=== PATIENT | male | born 1930 | race Caucasian/White ===

== ENCOUNTER 2018-01-21 09:46 | Outpatient (CLI) | payer MEDICARE, OTHER ==
--- NOTE | 2018-01-21 12:27 | MRI ---
BRAIN MRI WITH AND WITHOUT CONTRAST: Date: 01/21/18 HISTORY: Follow-up stroke last year. COMPARISON: February 2017. TECHNIQUE: Brain MRI is performed with and without intravenous Gadolinium administration. Multisequential, multi planar imaging is performed. FINDINGS: There is a right frontal, temporal, parietal and occipital subdural hematoma with hypointensity in th e axial gradient echo sequence suggesting blood products. This lesion is intrinsically T1 hypointense , T2 hyperintense, suggesting an acute bleed. Hematoma measures 2.2 cm. There is mass effect and sulc al effacement upon the right cerebrum. There is 5 mm of [id number] subfalcine herniation. No obstr ucting hydrocephalus. Cortical glover-white matter differentiation in right cerebrum is preserved. Ther e is malacic and gliotic change involving the left cerebrum compatible with previous area of insult. Chronic small vessel ischemic changes of white matter are noted. Stable hyperintensities in the brainstem structures. Central arterial flow-voids are maintained. Abse nt restricted diffusion. Calvarium has a normal T1 marrow signal intensity. Midline brain parenchymal structures are unremarkable. No pathologic enhancement of the brain parenchyma. There is mild enhancement involving the dura along the extra-axial hematoma involving the right hemis phere. IMPRESSION: 1. Acute right-sided subdural hematoma measuring 2.2 cm. There is mass effect upon the right cerebru m with 5 mm of acjkq-hy-koue subfalcine herniation. 2. Malacic gliotic change involving the left cerebrum due to remote insult. 3. Chronic small vessel ischemic changes of white matter. 4. Absent restricted diffusion. No acute infarct. Results of study discussed with Dr. Lourdes Mott on 01/21/18 at 1206 hours. CODE CR. POS: [facility]
== END 2018-01-21 09:47 | disposition home or self-care (01) ==
LOC: SCSMRI 09:46
PROVIDERS: ATTEND Student in an Organized Health Care Education/Training Program
DX: I63.9 Cerebral infarction, unspecified (principal); R93.0 Abnormal findings on diagnostic imaging of skull and head, not elsewhere classified; S06.5X9A Traumatic subdural hemorrhage with loss of consciousness of unspecified duration, initial encounter; G93.9 Disorder of brain, unspecified
CPT/HCPCS: 70553

== ENCOUNTER 2018-01-21 12:40 | Emergency (ER) | payer MEDICARE, OTHER | END 2018-01-21 13:55 | disposition home or self-care (01) | LOC: ERS 12:40 | DX: I62.03 Nontraumatic chronic subdural hemorrhage (principal); E11.9 Type 2 diabetes mellitus without complications; I10 Essential (primary) hypertension; I25.10 Atherosclerotic heart disease of native coronary artery without angina pectoris; I73.9 Peripheral vascular disease, unspecified; M19.90 Unspecified osteoarthritis, unspecified site; Z86.73 Personal history of transient ischemic attack (TIA), and cerebral infarction without residual deficits; Z86.718 Personal history of other venous thrombosis and embolism; Z87.891 Personal history of nicotine dependence; R93.0 Abnormal findings on diagnostic imaging of skull and head, not elsewhere classified; S06.5X9A Traumatic subdural hemorrhage with loss of consciousness of unspecified duration, initial encounter; G93.9 Disorder of brain, unspecified | CPT/HCPCS: 70553; 82565; 99283 ==

== ENCOUNTER 2018-02-10 16:45 | Emergency (ER) | payer MEDICARE, OTHER ==
--- NOTE | 2018-02-10 18:37 | CT ---
CT OF THE BRAIN WITHOUT CONTRAST: Date: 02/10/18 COMPARISON: MRI of brain dated 01/21/18. HISTORY: Fall at 4:30 from standing onto a tile floor in the bathroom. Patient hit occipital head. TECHNIQUE: Multiple contiguous axial images were obtained in a CT of the brain without contrast. FINDINGS: There is a right subdural hematoma measuring 1.9 cm in greatest thickness. This has both low density and high density components and likely represents a chronic subdural hematoma with an acute component . Slight shift of the midline to the left is seen and not significantly changed compared to the prior MRI. There is encephalomalacia in the left frontoparietal region. No intraventricular hemorrhage is seen. No downward herniation is present. The calvarium and overlying soft tissues are unremarkable. There are skin tye in the left scalp n ear the vertex. The underlying calvarium is unremarkable. The visualized paranasal sinuses and mastoi d air cells are well aerated. 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 POS: [facility]
--- NOTE | 2018-03-05 15:05 | EKG ---
Test Reason : Blood Pressure : / mmHG Vent. Rate : 081 BPM Atrial Rate : 081 BPM P-R Int : 258 ms QRS Dur : 084 ms QT Int : 402 ms P-R-T Axes : 104 -14 082 degrees QTc Int : 466 ms Sinus rhythm with 1st degree A-V block with occasional Premature ventricular complexes Septal infarct , age undetermined Abnormal ECG Confirmed by HAMILTON GREEN ([id number]), design editor MADAI WARREN ([id number]) on 03/05/2018 3:05:09 PM Referred By: Confirmed By:HAMILTON GREEN
== END 2018-02-10 19:26 | disposition home or self-care (01) ==
LOC: ERS 16:45
DX: S01.01XA Laceration without foreign body of scalp, initial encounter (principal); E11.9 Type 2 diabetes mellitus without complications; I10 Essential (primary) hypertension; Z87.891 Personal history of nicotine dependence; Z79.899 Other long term (current) drug therapy; Z79.84 Long term (current) use of oral hypoglycemic drugs; W18.30XA Fall on same level, unspecified, initial encounter
CPT/HCPCS: 12001; 70450; 93005

== ENCOUNTER 2018-02-12 16:03 | Inpatient (IN) | payer MEDICARE, OTHER ==
[2018-02-12 17:39] LABS: #Eosinphils 0.1 thou/uL (0.0-0.7); #Lymphocytes 1.4 thou/uL (1.20-3.40); #Monocytes 0.4 thou/uL (0.11-0.59); #Neutrophils 3.1 thou/uL (1.40-6.50); %Basophils 0.8 % (0.0-1.0); %Eosinophils 1.6 % (0.0-10.0); %Lymphocytes 27.2 % (21.0-51.0); %Monocytes 8.8 % (0.0-10.0); %Neutrophils 61.6 % (42.0-75.0); Hemoglobin 11.8 g/dL (14.0-18.0); Mean Corpuscular HGB CONC 32.1 g/dL (32.0-36.0); Mean Corpuscular Hemoglobin 28.2 pg (27.0-31.0); Mean Corpuscular Volume 87.8 fl (80.0-94.0); Mean Platelet Volume 6.9 fL (7.4-10.4); Platelet Count 228 thou/uL (130-400); RBC Distribution Width 12.5 % (11.5-14.5)
--- NOTE | 2018-02-12 17:41 | RAD ---
PORTABLE UPRIGHT FRONTAL CHEST RADIOGRAPH 02/12/18 COMPARISON: 03/19/17 HISTORY: Altered mental status. FINDINGS: There are increased linear interstitial densities seen throughout both lungs, stable. There is promin ence of the cardiac silhouette, stable as well. There is no pneumothorax or pleural fluid and no foca l consolidation or alveolar edema. IMPRESSION: Stable chronic findings as described above. No acute findings are seen. POS: [facility]
[2018-02-12 17:50] LABS: PTT 32.7 SEC (22.9-36.1); Prothrombin Time 13.2 SEC (12.0-14.7)
--- NOTE | 2018-02-12 17:52 | CT ---
CT OF THE BRAIN WITHOUT CONTRAST 02/12/18 COMPARISON: 02/10/18 HISTORY: Recent fall with subdural hematoma. TECHNIQUE: Multiple contiguous axial images were obtained in a CT of the brain without contrast. FINDINGS: There is a stable mixed acute on chronic subdural hematoma along the right frontal and parietal conve xities. There is effacement of the right lateral ventricle and stable slight shift in the midline to the left. No downward herniation is seen. No interventricular hemorrhage is present. There is encepha lomalacia in the left MCA distribution from prior remote infarction. The calvarium is unremarkable. There is tye in the left scalp near the vertex. The paranasal sinu ses and mastoid air cells are well aerated. IMPRESSION: Stable acute on chronic right subdural hematoma. POS: [facility]
--- NOTE | 2018-02-12 17:55 | CT ---
CT OF THE CERVICAL SPINE WITHOUT CONTRAST 02/12/18 COMPARISON: None. HISTORY: Subdural hematoma shown on CT. Recent fall to days ago. Patient hit his head. Neck pain. TECHNIQUE: Multiple contiguous axial images were obtained in a CT of the cervical spine without contrast. Sagitt al and coronal reformats were performed. FINDINGS: There are moderate to severe degenerative changes of the cervical spine. The vertebral bodies demonst rate normal height and alignment without acute fracture or subluxation. No prevertebral soft tissue s welling is seen. The posterior facets are well aligned. Normal alignment of the skull base with the cervical spine is seen. IMPRESSION: No evidence of acute osseous abnormality of the cervical spine. POS: [facility]
[2018-02-12 18:01] LABS: ALT (SGPT) 14 U/L (8-55); AST (SGOT) 15 U/L (5-34); Albumin 3.9 g/dL (3.4-4.8); Alkaline Phosphatase 77 U/L (40-150); Anion Gap 12 mmol/L (10-20); BUN (Urea Nitrogen) 33 mg/dL (8.4-25.7); Bilirubin, Total 0.5 mg/dL (0.2-1.2); Calc. Creatinine Clearance 0 mL/min (70-130); Calcium 9.6 mg/dL (7.8-10.44); Carbon Dioxide 25 mmol/L (23-31); Chloride 107 mmol/L (98-107); Estimated GFR-MDRD 40; Globulin 2.9 g/dL (2.4-3.5); Glucose 147 mg/dL (83-110); Magnesium 2.4 mg/dL (1.6-2.6); Potassium 4.4 mmol/L (3.5-5.1); Protein, Total 6.8 g/dL (5.8-8.1); Sodium 140 mmol/L (136-145)
[2018-02-12 18:04] LABS: Troponin I Less than 0.010 ng/mL (< 0.028)
[2018-02-12] MEDS ORDERED: niCARdipine 20MG in NaCl 200 ML BAG IVPB PRN (22:57)
[2018-02-12] MEDS ORDERED: Acetaminophen 325 MG TAB PO PRN (22:57)
[2018-02-12] MEDS ORDERED: Milk Of Magnesia 30 ML UDCUP PO PRN (22:57)
[2018-02-12] MEDS ORDERED: Mag-Al 1200 mg/1200 mg/30 ML UDCUP PO PRN (22:57)
[2018-02-12] MEDS ORDERED: Bisacodyl 10 MG SUPP PR PRN (22:57)
[2018-02-12] MEDS ORDERED: Docusate 100 MG CAP PO PRN (22:57)
[2018-02-12] MEDS: Sodium Chloride 0.9% 1,000 ML IV SCH (23:40)
[2018-02-12] MEDS: niCARdipine HCl 25 MG in Sodium Chloride 0.9% 250 ML 240 ML IVPB PRN (23:41)
[2018-02-13 05:55] LABS: #Eosinphils 0.1 thou/uL (0.0-0.7); #Lymphocytes 1.6 thou/uL (1.20-3.40); #Monocytes 0.4 thou/uL (0.11-0.59); #Neutrophils 3.6 thou/uL (1.40-6.50); %Basophils 0.5 % (0.0-1.0); %Eosinophils 2.2 % (0.0-10.0); %Lymphocytes 28.1 % (21.0-51.0); %Monocytes 7.3 % (0.0-10.0); %Neutrophils 61.8 % (42.0-75.0); Hemoglobin 13.7 g/dL (14.0-18.0); Mean Corpuscular HGB CONC 32.5 g/dL (32.0-36.0); Mean Corpuscular Hemoglobin 28.5 pg (27.0-31.0); Mean Corpuscular Volume 87.8 fl (80.0-94.0); Mean Platelet Volume 7.7 fL (7.4-10.4); Platelet Count 233 thou/uL (130-400); RBC Distribution Width 12.6 % (11.5-14.5); White Blood Cell (WBC) Count 5.8 thou/uL (4.8-10.8)
[2018-02-13 06:13] LABS: Anion Gap 13 mmol/L (10-20); BUN (Urea Nitrogen) 28 mg/dL (8.4-25.7); Calc. Creatinine Clearance 41 mL/min (70-130); Calcium 9.7 mg/dL (7.8-10.44); Carbon Dioxide 21 mmol/L (23-31); Chloride 107 mmol/L (98-107); Estimated GFR-MDRD 48; Glucose 155 mg/dL (83-110); Potassium 4.4 mmol/L (3.5-5.1); Sodium 137 mmol/L (136-145)
[2018-02-13] MEDS: niCARdipine HCl 25 MG in Sodium Chloride 0.9% 250 ML 240 ML IVPB PRN ×3 (06:36→17:39)
[2018-02-13] MEDS ORDERED: HYDROcodone/Acetaminophen 5/325 mg Tablet PO PRN (08:01)
[2018-02-13] MEDS ORDERED: Artificial Tear Sol 15 ML BOT EA EYE PRN (08:01)
[2018-02-13] MEDS ORDERED: Dextrose 5% in Water 1,000 ML IV PRN (08:01)
[2018-02-13] MEDS ORDERED: Diabetic Tussin 200 MG/10 ML UDCUP PO PRN (08:01)
[2018-02-13] MEDS ORDERED: Loratadine 10 MG TAB PO PRN (08:01)
[2018-02-13] MEDS ORDERED: Eucerin (Mineral Oil/Petrolatum,White) 30 gm Jar TOP PRN (08:01)
[2018-02-13] MEDS ORDERED: Dextrose 50% Abboject 50 ML SYRINGE SLOW IVP PRN (08:01)
[2018-02-13] MEDS ORDERED: Ondansetron ODT 4 MG TAB PO PRN (08:01)
[2018-02-13] MEDS ORDERED: Sodium Chloride 0.65% Nasal 44 ML BOT EA NARE PRN (08:01)
[2018-02-13] MEDS ORDERED: Chloraseptic Spray 180 ml Bottle PO PRN (08:01)
[2018-02-13] MEDS ORDERED: HumaLOG 300 UNITS/3 ML VIAL SC PRN (08:01)
[2018-02-13] MEDS ORDERED: Zolpidem Tartrate 5 MG TAB PO PRN (08:01)
[2018-02-13] MEDS ORDERED: Ondansetron HCl/PF 4 MG/2 ML Vial IVP PRN ×2 (08:01→15:41)
--- NOTE | 2018-02-13 08:24 | HP ---
Chris Palmer PA-C, dictating for Tip Pruitt MD This is a 55-minute neuro, initial patient consult in which greater than 50% of the exam was spent co unseling and coordinating patient's care. The remainder of the exam was spent in review of patient's medical records and appropriate imaging studies. CHIEF COMPLAINT: Increased agitation, confusion, and balance issues for the past 2-3 days after sust aining a fall. HISTORY OF PRESENT ILLNESS: Mr. Alexander is a pleasant 87-year-old male who presents to [facility] Room with his for the above complaints. Apparently, the patient had known subdural hemato ma on the right as of 01/2018 evaluated by Neurology. The patient also has a history of left MCA dis tribution stroke several years ago. There is a component of baseline dementia. The patient lives at home with his . He was on 81 mg aspirin, but given the fact that he had a subdural in early Jan, was told to cease taking this and he has stopped taking this. Given some aches and pains, the karlos marycruztomasa's has given him some Advil, but again, he has not been on any blood thinners as early in . He fell at home, roughly 2-3 days ago as he tripped over his walker. He was evaluated in the emergency room, diagnosed with acute on chronic subdural hematoma. He was to follow up with Samson alvarado in 2-3 days, but again the patient's cancel the appointment. Given the fact that he fell, she will take him to the ER today. The patient's notes that he has had some increased agitation and combativeness as well as some balance issues and repetitive speech over the past 2-3 days after a fall. Review of the patient's head CT shows right acute on chronic subdural hematoma that is rough ly 2 cm in diameter with small amount of midline shift. Neurosurgery thus consulted regarding this. PHYSICAL EXAMINATION: The patient is awake, alert, and appropriate for the most part. He is repetit abiel in his speaking and is intermittently confused. GCS currently is 14. He is oriented to person a nd knows that he is in the hospital, but states that it is 1960, it is Saturday. He is unable to ident wayne what a writing pen is used for and cannot define an island, the definition of an Island. He does equally follow commands in all 4 extremities. He has no pronator drift at this time. His pupils ar e roughly 2-3 mm in size and reactive bilaterally. IMPRESSION: Status post fall 2-3 days ago with acute on chronic right subdural hematoma. PLAN: I discussed the patient's case and imaging with Dr. Pruitt. At this time, we will plan to rubi e the patient to surgery tomorrow afternoon for right frontal and parietal bur hole placement for elfego cuation of subdural hematoma. We will admit him to the unit for q.1 hour neuro checks. We will repe at his head CT in the morning. I discussed the procedure bur hole versus conversion to craniotomy wi th the patient and his and at this time they wish to proceed. Again, we will prefer the OR for tomorrow as the patient is for the most part neurologically intact and is well protecting his airway. We will proceed urgently rather than emergently. Of course, should the patient's neurologic status change, we will reevaluate then for sooner surgery; however, otherwise again we will plan with bur h ole placement tomorrow. At this time, the patient may eat, but he will be n.p.o. at midnight. Systo lic blood pressure remained less than 150, head of bed elevated at 30 degrees. We have also consulte d Medicine to help manage the patient's medical conditions. Please call with any questions or change s in patient's neurologic status. Otherwise, we will follow up with repeat head CT. Discussed bur h oles procedure with patient's family tomorrow.
[2018-02-13] MEDS: Famotidine/PF 20 mg/2ml Vial SLOW IVP SCH (08:32)
--- NOTE | 2018-02-13 08:44 | CT ---
PRELIMINARY REPORT/[facility]/EMERGENCY AFTER HOURS PROCEDURE: EXAM: CT Head Without Intravenous Contrast CLINICAL HISTORY: 87 years old, male; Injury or trauma; Fall; Follow-up exam; Blunt trauma (contusions or hematomas); Consciousness not specified; Patient HX: Acute on chronic sdh TECHNIQUE: Axial computed tomography images of the head/brain without intravenous contrast. COMPARISON: CT Brain WO Con 2018-02-10 18:12 FINDINGS: Brain: Stable large, mixed attenuation right frontoparietal subdural hematoma with persistent effacem ent of the right lateral ventricle and 6 mm right to left midline shift. No axial herniation. No hydr ocephalus. No acute stroke. Stable remote left MCA distribution parietal infarct. Stable lacunar infa rcts, right basal ganglion and thalamic lobe. Ventricles: See above. Bones/joints: No acute findings. No acute fracture. Soft tissues: No acute findings. Sinuses: Unremarkable as visualized. No acute sinusitis. Mastoid air cells: Unremarkable as visualized. No mastoid effusion. IMPRESSION: No significant change in large acute on chronic right subdural hematoma. No significant change in degree of mass effect or midline shift. No acute stroke. Thank you for allowing us to participate in the care of your patient. Dictated and Authenticated by: Vini Veloz MD 02/13/2018 4:43 AM Central Time ([place] & [place]) FINAL REPORT HEAD CT WITHOUT CONTRAST: Date: 02/13/18 COMPARISON: 02/12/18. HISTORY: Re-evaluate acute on chronic subdural hematoma. FINDINGS: A large acute on chronic subdural hematoma is noted on the right extending from inferior aspect of an terior cranial fossa to vertex. In transverse dimension, this subdural hematoma measures up to at [address] 2.0 cm, similar when compared to prior imaging. There is stable marked mass effect on the frontal lobe on the right, and there is right to left midline shift measuring approximately 6-7 mm, similar w hen compared to prior imaging as well. There is evidence of prior left posterior frontal infarction. Punctate focus of hypodense and lidia suggests age-indeterminate lacunar infarction, stable as well. I beatriz paranasal sinuses/mastoid air cells are well aerated. No displaced calvarial fracture. Cutaneou s tye are seen associated with the left lateral aspect of the scalp near the vertex. IMPRESSION: Stable large acute on chronic left subdural hematoma with associated mass effect on the right frontal lobe and stable right to left midline shift. This report is in agreement with the preliminary report given by Pa. POS: [facility]
--- NOTE | 2018-02-13 10:54 | PDOC.PN ---
- Subjective Encounter Start Date: 02/13/18 Encounter Start Time: 09:15 -: old records requested/rev pt is confused, denies any complaints, no headache - Objective Resuscitation Status: Resuscitation Status FULL:Full Resuscitation MAR Reviewed: Yes Vital Signs & Weight: Vital Signs (12 hours) Temp Pulse Resp Pulse Ox 02/13/18 07:12 97.7 F 82 27 H 97 02/13/18 07:00 97.7 F 02/13/18 04:00 98.3 F 02/13/18 00:00 98.2 F 02/12/18 23:59 98.2 F 77 15 97 Weight Weight 166 lb 10.711 oz Most Recent Monitor Data Heart Rate from ECG 80 NIBP 118/73 NIBP BP-Mean 81 Respiration from ECG 19 SpO2 96 I&O: 02/12/18 02/13/18 02/14/18 06:59 06:59 06:59 Intake Total 559 Output Total 700 200 Balance -141 -200 Result Diagrams: 02/13/18 04:27 02/13/18 04:27 Radiology Reviewed by me: Yes (CT brain) EKG Reviewed by me: Yes (NSR) Phys Exam - Physical Examination Constitutional: NAD HEENT: PERRLA, moist MMs, sclera anicteric Neck: no JVD, supple Respiratory: no wheezing, no rales, no rhonchi Cardiovascular: RRR, no significant murmur, no rub Gastrointestinal: soft, non-tender, no distention, positive bowel sounds Musculoskeletal: no edema, pulses present Neurological: non-focal, normal sensation, moves all 4 limbs Lymphatic: no nodes Psychiatric: normal affect Deviation from normal: confused Skin: no rash, normal turgor Dx/Plan (1) Fall Code(s): W19.XXXA - UNSPECIFIED FALL, INITIAL ENCOUNTER Status: Acute (2) Subdural hematoma Code(s): I62.00 - NONTRAUMATIC SUBDURAL HEMORRHAGE, UNSPECIFIED Status: Acute (3) Diabetes type 2, controlled Code(s): E11.9 - TYPE 2 DIABETES MELLITUS WITHOUT COMPLICATIONS Status: Chronic (4) CAD (coronary artery disease) Code(s): I25.10 - ATHSCL HEART DISEASE OF [place] CORONARY ARTERY W/O ANG PCTRS Status: Chronic Qualifiers: (5) Chronic kidney disease, stage 3 Status: Chronic (6) H/O: CVA (cerebrovascular accident) Code(s): Z86.73 - PRSNL HX OF TIA (TIA), AND CEREB INFRC W/O RESID DEFICITS Status: Chronic (7) Hypertension Code(s): I10 - ESSENTIAL (PRIMARY) HYPERTENSION Status: Chronic Qualifiers: (8) Peripheral vascular occlusive disease Code(s): I73.9 - PERIPHERAL VASCULAR DISEASE, UNSPECIFIED Status: Chronic - Plan cont current plan of care * code status-Full code * start hyperglycemia protocol treatment * DVT prophylaxis with SCD * GI prophylasix with pepcid * home medication reconciled * medication reviewed as below * symptomatic treatment * plan for bur hole drainage later today. Review of Systems - Review of Systems Other: not reliable due to his cognitive status - Medications/Allergies Allergies/Adverse Reactions: Allergies Allergy/AdvReac Type Severity Reaction Status Date / Time No Known Allergies Allergy Verified 02/27/17 00:50 Medications: Current Medications Acetaminophen (Tylenol) 650 mg PO Q6H PRN PRN Reason: Fever > 101 or Headache Hydrocodone Bitart/Acetaminophen ([place] 5/325) 1 tab PO Q4H PRN PRN Reason: Moderate Pain (4-6) Al Hydroxide/Mg Hydroxide (Maalox) 30 ml PO QIDPRN PRN PRN Reason: Dyspepsia Artificial Tears (Tears Renewed 15ml Bottle) 0 drop EA EYE PRN PRN PRN Reason: Dry Eyes Bisacodyl (Dulcolax) 10 mg NV DAILYPRN PRN PRN Reason: Constipation Dextrose/Water (Dextrose 50%) 25 gm SLOW IVP PRN PRN PRN Reason: Hypoglycemia Docusate Sodium (Colace) 100 mg PO BIDPRN PRN PRN Reason: Constipation Famotidine (Pepcid) 20 mg SLOW IVP 0900 [facility] Last Admin: 02/13/18 08:32 Dose: 20 mg Glucagon (Glucagon) 1 mg IM PRN PRN PRN Reason: Hypoglycemia Guaifenesin (Robitussin Sf) 200 mg PO Q4H PRN PRN Reason: Cough Hydralazine HCl (Apresoline) 10 mg SLOW IVP Q4H PRN PRN Reason: Systolic BP > 180 Sodium Chloride (Normal Saline 0.9%) 1,000 mls @ 75 mls/hr IV .[id number] [facility] Last Admin: 02/12/18 23:40 Dose: 1,000 mls Nicardipine HCl 25 mg/ Sodium (Chloride) 250 mls @ 0 mls/hr IVPB INF PRN; Protocol; Titrate PRN Reason: For SBP > 150 or DBP > 90 Last Admin: 02/13/18 09:54 Dose: 250 mls Dextrose/Water (D5w) 1,000 mls @ 0 mls/hr IV .Q0M PRN; As Directed PRN Reason: Hypoglycemia Insulin Human Lispro (Humalog) 0 units SC .MODERATE SLIDING SC PRN PRN Reason: Moderate Correctional Scale Insulin Human Lispro (Humalog) 0 units SC .BEDTIME SLIDING SC PRN PRN Reason: Bedtime Correctional Scale Loratadine (Claritin) 10 mg PO DAILYPRN PRN PRN Reason: Sinus Symptoms Magnesium Hydroxide (Milk Of Magnesium) 30 ml PO BIDPRN PRN PRN Reason: Constipation Mineral Oil/White Petrolatum (Eucerin Cream) 0 gm TOP BIDPRN PRN PRN Reason: Dry Skin Ondansetron HCl (Zofran Odt) 4 mg PO Q6H PRN PRN Reason: Nausea/Vomiting Ondansetron HCl (Zofran) 4 mg IVP Q6H PRN PRN Reason: Nausea/Vomiting Phenol (Chloraseptic [place] 180 Ml Bot) 0 ml PO PRN PRN PRN Reason: Sore Throat Sodium Chloride (Flush - Normal Saline) 10 ml IVF PRN PRN PRN Reason: Saline Flush Sodium Chloride ([place] Nasal [place] 0.65%) 0 ml EA NARE QIDPRN PRN PRN Reason: Nasal Congestion Zolpidem Tartrate (Ambien) 5 mg PO HSPRN PRN PRN Reason: Insomnia History of Present Illnes - History of Present Illness Reason for Visit: admitted for SDH after fall History of Present Illness: pt had fall 2 days ago, brought for AMS, found with SDH, admitted under neurosurgeon we are consulted for medical management pt is confused - Past Medical History Cardiac: CAD, HTN, Hyperlipidemia 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
[2018-02-13] MEDS: Sodium Chloride 0.9% 1,000 ML IV SCH (12:15)
[2018-02-13] MEDS ORDERED: Sodium Chloride 0.9% 10 ML ONE (12:32)
[2018-02-13] MEDS ORDERED: Lidocaine 0.5%/Epinephrine 1:200,000 50 ml Vial ONE (12:32)
[2018-02-13] MEDS ORDERED: Bacitracin Zinc Ointment 30 gm TUBE ONE (12:32)
[2018-02-13] MEDS ORDERED: Thrombin 5000 UNITS/5 ML VIAL ONE (12:32)
[2018-02-13] MEDS ORDERED: Fentanyl 100 MCG/2 ML VIAL ONE (13:10)
[2018-02-13] MEDS ORDERED: Lidocaine 2% Jelly 5 ML TUBE ONE (13:24)
[2018-02-13] MEDS ORDERED: Glycopyrrolate 0.2 MG/ML 5 ML SYRINGE ONE (13:37)
[2018-02-13] MEDS ORDERED: PHENYLEPHRINE-NS 100 MCG/ML 10 ML SYRINGE ONE (13:37)
[2018-02-13] MEDS ORDERED: PROPOFOL 200 MG/20 ML VIAL ONE (13:37)
[2018-02-13] MEDS ORDERED: Lidocaine 1% PF 5 ML VIAL ONE (13:37)
--- NOTE | 2018-02-13 15:20 | CON ---
DATE OF CONSULTATION: 02/13/2018 The following encompasses 70 minutes time. Of that time, greater than 50% was spent either with the patient or on the patient's unit. REASON FOR CONSULTATION: Management of hypertension. HISTORY OF PRESENT ILLNESS: This is an 87-year-old male who was admitted to the hospital yesterday a fter falling 2 days before admission, hitting his head in the bathroom. He has an acute on chronic r ight-sided subdural hematoma. Additionally, he has a history of a left-sided infarct in the past. H e is grossly confused and cannot give me anything in the way of accurate history. What I have is obt ained from reading the chart and talking with the nursing staff. PAST MEDICAL HISTORY: 1. Coronary artery disease. 2. Stroke. 3. Hypertension. 4. Osteoarthritis. 5. Previous subdural hematoma. 6. Deep venous thrombosis. PAST SURGICAL HISTORY: Appendectomy, thrombectomy left lower extremity. ALLERGIES: None. MEDICATIONS PRIOR TO ADMISSION: Metformin 1000 mg twice daily, captopril 25 mg twice daily, glipizid e 5 mg twice daily, amlodipine 5 mg daily, hydralazine 50 mg 3 times daily, simvastatin 40 mg daily. ASSESSMENT: 1. Subdural hematoma. 2. Encephalopathy. 3. Hypertension. PLAN: He may be going to the OR later today for bur holes. As soon as he is stabilized from an oral standpoint, we can restart his oral hypertensive medication. He will receive SCDs for DVT prophylax is and Pepcid for GI prophylaxis.
[2018-02-13] MEDS: CEFAZOLIN 1 GM, Syringe 2.5 ML in Sterile Water 7.5 ML SLOW IVP SCH (17:19)
[2018-02-13] MEDS: HumaLOG 300 UNITS/3 ML VIAL SC PRN (18:10)
--- NOTE | 2018-02-13 18:17 | PRG ---
DATE OF SERVICE: 02/13/2018 I have reviewed the notes of my colleague, Chris Palmer PA-C and agree with its content. Mr. Alexander is an 87-year-old man with a history of dementia, but he has been in and out of the [facility] for right-sided subdural hematoma. It is starting to cause increasing confusion and behavioral edwige nge. He has a history of left-sided stroke. CT demonstrates a right chronic subdural hematoma with moderate mass effect and midline shift. I have recommended surgery. The family would like to pursue . We will plan for cooper hole evacuation. I have discussed the informed consent in detail with the kwabena solo's and [id number]. DIAGNOSIS: Right chronic subdural hematoma with neurological decline.
[2018-02-13] MEDS ORDERED: Haloperidol Lactate 5 MG/ML VIAL SLOW IVP PRN (19:41)
[2018-02-13] MEDS ORDERED: CEFAZOLIN 1 GM in Sodium Chloride 0.9% 100 ML IVPB SCH (22:00)
[2018-02-13] MEDS: Haloperidol Lactate 5 MG/ML VIAL SLOW IVP PRN (22:43)
--- NOTE | 2018-02-13 22:58 | OP ---
OR: 12 WOUND TYPE: Type 1 wound. SURGEON: Tip Pruitt M.D. AUTOMOTIVE WORKER FOREMAN: Chris Palmer PA-C PREPROCEDURE DIAGNOSIS: Right chronic subdural hematoma, mass effect, midline shift, and neuro decli ne. POSTPROCEDURE DIAGNOSIS: Right chronic subdural hematoma, mass effect, midline shift, and neuro decl ine. PROCEDURE: Right-sided frontoparietal cooper hole, evacuation of subdural hematoma, and placement of s ubdural drain. DESCRIPTION OF PROCEDURE: After informed consent was obtained from the family, the patient brought t o OR 12. Proper patient pause and identification was carried out. He was placed under general anest hesia, the right frontal and parietal regions were identified, linear angel made. This was sterilely cleansed, prepared, and draped, proper patient pause and identification. Wounds were then opened an d bur holes placed. Dura opened, the subdural membrane was opened, and subdural hematoma came out un tanya moderate pressure. This was evacuated until we irrigated clear. A subdural drain was placed, se cured. The wound was closed in anatomic layers. The patient then emerged from anesthesia.
[2018-02-14] MEDS: CEFAZOLIN 1 GM, Syringe 2.5 ML in Sterile Water 7.5 ML SLOW IVP SCH ×3 (00:05→16:46)
[2018-02-14] MEDS: HumaLOG 300 UNITS/3 ML VIAL SC PRN ×2 (00:15→06:23)
[2018-02-14] MEDS: niCARdipine HCl 25 MG in Sodium Chloride 0.9% 250 ML 240 ML IVPB PRN ×2 (00:17→05:24)
[2018-02-14] MEDS: Sodium Chloride 0.9% 1,000 ML IV SCH (02:17)
--- NOTE | 2018-02-14 08:24 | CT ---
PRELIMINARY REPORT/[facility]/EMERGENCY AFTER HOURS PROCEDURE: EXAM: CT Head Without Intravenous Contrast CLINICAL HISTORY: 87 years old, male; Condition or disease; Other: Sdh; Prior surgery; Surgery date: Post-operative (0- 2 days); Patient HX: [place] hole drainage of sdh TECHNIQUE: Axial computed tomography images of the head/brain without intravenous contrast. COMPARISON: CT Brain WO Con 2018-02-13 03:39 FINDINGS: Interval surgery, with 2 right-sided cooper holes and a right subdural drain now present. Moderate amount of intracranial gas. Significant decrease in size of previously seen right subdural hematoma. Some subdural/blood is still present, maximum thickness 10-11 mm. There is mild right to left midline shift, improved in the interval. This measures about 4 mm, compar ed with 6-7 mm previously. No definite new hemorrhage in the interval. Ventricle size is not significantly changed. There is mild, relatively symmetrical decreased attenuation in the periventricular white matter, like ly from microvascular disease. There are small old lacunar infarcts in the right basal ganglia region and thalamus. Additional old infarct in the posterior left parietal region, unchanged. No definite acute infarct by CT. IMPRESSION: Postsurgical changes as above. Significant decrease in size of previously seen right subdural hematoma. Mild right to left midline shift, improved in the interval, details above. No definite new hemorrhage in the interval. Other findings discussed above. Thank you for allowing us to participate in the care of your patient. Dictated and Authenticated by: Mateo Rome MD 02/14/2018 5:55 AM Central Time ([place] & [place]) FINAL REPORT CT HEAD NONCONTRAST: Date: 02/14/18 FINDINGS/IMPRESSION: I agree with the above provided preliminary interpretation from [facility]. Interval decrease in volume of extra-axial hemorrhage, mixed density, overlying the right convexity. Pneumocephalus is present with an interval placed high right parietal approach. Extra-axial drain in place, terminating overlying the inferior right frontal lobe. POS: [facility]
[2018-02-14] MEDS: Famotidine/PF 20 mg/2ml Vial SLOW IVP SCH (09:19)
--- NOTE | 2018-02-14 10:23 | PRG ---
DATE OF SERVICE: 02/14/2018 SERVICE: Pulmonary Medicine. INTERVAL HISTORY: The patient is doing okay from a respiratory standpoint. Yesterday, he got a patrick le agitated. He ended up getting a dose of Haldol which actually seemed to help him quite a bit. He cannot provide much in the way of interval history. That being said, he indicates that he is not sh ort-winded. He has no specific complaints and otherwise, there were no nursing events reported. PHYSICAL EXAMINATION: VITAL SIGNS: Afebrile, pulse 82, blood pressure 129/56, respirations 14, saturation 96% on room air. GENERAL: The patient is awake. He is a little somnolent. HEENT: Normocephalic, atraumatic. Sclerae are white, conjunctivae pink. Oral and nasal mucosa dry. LUNGS: Decent air entry. Minimal rhonchi are present. There is not much of a prolonged expiratory phase. HEART: Normal rate, regular. ABDOMEN: Soft, nontender, nondistended. Bowel sounds are positive. MUSCULOSKELETAL: No cyanosis or clubbing. There is no pitting in the bilateral lower extremities. He has got skin tenting throughout. GENITOURINARY: Montiel catheter in place. NEUROLOGIC: Grossly nonfocal. LABORATORY DATA: WBC 5.8, hemoglobin 13.7, platelets 233,000. INR 1.0. Creatinine 1.40 and gently down trending, but blood sugars ranged from 166-200. Troponin was negative x1. IMAGING: CT of the brain demonstrates postsurgical changes and significant decreased inside of the r ight subdural hematoma, improved midline shift. ASSESSMENT: 1. Subdural hematoma. 2. Encephalopathy secondary to #1. 3. Status post craniotomy. DISCUSSION AND PLAN: The patient will remain in the ICU for the time being. Pulmonary or Critical C are will continue to follow. We will watch neuro checks fairly routinely. Hopefully, as his mentati on starts to improve, we will be able to increase mobility as tolerated. I will increase his IV flui ds as he is a touch on the dry side and we will repeat laboratories tomorrow morning.
[2018-02-14] MEDS: Sodium Chloride 0.45% 1,000 ML IV SCH ×2 (10:55→19:32)
--- NOTE | 2018-02-14 12:38 | PDOC.PN ---
- Subjective Encounter Start Date: 02/14/18 Encounter Start Time: 09:00 pt is sleepy this morning, no fever, burhole surgery was done yesterday Patient seen and examined. No overnight events - Objective Resuscitation Status: Resuscitation Status FULL:Full Resuscitation MAR Reviewed: Yes Vital Signs & Weight: Vital Signs (12 hours) Temp Pulse Pulse BP BP Pulse Ox Pulse Ox 02/14/18 09:18 85 85 123/64 136/45 L 96 96 02/14/18 08:00 98.4 F 02/14/18 04:00 98.4 F Weight Weight 167 lb 1.766 oz Most Recent Monitor Data Heart Rate from ECG 78 NIBP 135/42 NIBP BP-Mean 92 Respiration from ECG 14 SpO2 95 I&O: 02/13/18 02/14/18 02/15/18 06:59 06:59 06:59 Intake Total 559 2888 392 Output Total 700 2320 325 Balance -141 568 67 Result Diagrams: 02/13/18 04:27 02/13/18 04:27 Additional Labs: Accuchecks 02/14/18 02/14/18 02/13/18 06:24 00:15 17:56 POC Glucose 200 H 174 H 169 H Radiology Reviewed by me: Yes (CT brain) EKG Reviewed by me: Yes (nsr) Phys Exam - Physical Examination Constitutional: NAD HEENT: PERRLA, moist MMs, sclera anicteric Neck: no JVD, supple Respiratory: no wheezing, no rales, no rhonchi Cardiovascular: RRR, no significant murmur, no rub Gastrointestinal: soft, non-tender, no distention, positive bowel sounds Musculoskeletal: no edema, pulses present gutierrez+ Neurological: moves all 4 limbs Lymphatic: no nodes Psychiatric: normal affect Skin: no rash, normal turgor Dx/Plan (1) Fall Code(s): W19.XXXA - UNSPECIFIED FALL, INITIAL ENCOUNTER Status: Acute (2) Encephalopathy acute Code(s): G93.40 - ENCEPHALOPATHY, UNSPECIFIED Status: Acute (3) Subdural hematoma Code(s): I62.00 - NONTRAUMATIC SUBDURAL HEMORRHAGE, UNSPECIFIED Status: Acute Comment: acute on chronic, with midline shift, s/p burhole evaluation (4) Diabetes type 2, controlled Code(s): E11.9 - TYPE 2 DIABETES MELLITUS WITHOUT COMPLICATIONS Status: Chronic (5) CAD (coronary artery disease) Code(s): I25.10 - ATHSCL HEART DISEASE OF [place] CORONARY ARTERY W/O ANG PCTRS Status: Chronic Qualifiers: (6) Chronic kidney disease, stage 3 Status: Chronic (7) H/O: CVA (cerebrovascular accident) Code(s): Z86.73 - PRSNL HX OF TIA (TIA), AND CEREB INFRC W/O RESID DEFICITS Status: Chronic (8) Hypertension Code(s): I10 - ESSENTIAL (PRIMARY) HYPERTENSION Status: Chronic Qualifiers: (9) Peripheral vascular occlusive disease Code(s): I73.9 - PERIPHERAL VASCULAR DISEASE, UNSPECIFIED Status: Chronic - Plan cont current plan of care, gutierrez catheter, PT/OT, DVT proph w/SCDs * increase IVF * once more alert, start PT/OT * medication reviewed as below * symptomatic treatment * otherwise stable medically. Review of Systems - Review of Systems Other: unable to review today as pt is confused and currently sleepy - Medications/Allergies Allergies/Adverse Reactions: Allergies Allergy/AdvReac Type Severity Reaction Status Date / Time No Known Allergies Allergy Verified 02/27/17 00:50 Medications: Current Medications Acetaminophen (Tylenol) 650 mg PO Q6H PRN PRN Reason: Fever > 101 or Headache Hydrocodone Bitart/Acetaminophen ([place]ris 5/325) 1 tab PO Q4H PRN PRN Reason: Moderate Pain (4-6) Last Admin: 02/13/18 20:22 Dose: 1 tab Al Hydroxide/Mg Hydroxide (Maalox) 30 ml PO QIDPRN PRN PRN Reason: Dyspepsia Artificial Tears (Tears Renewed 15ml Bottle) 0 drop EA EYE PRN PRN PRN Reason: Dry Eyes Bisacodyl (Dulcolax) 10 mg MS DAILYPRN PRN PRN Reason: Constipation Dextrose/Water (Dextrose 50%) 25 gm SLOW IVP PRN PRN PRN Reason: Hypoglycemia Docusate Sodium (Colace) 100 mg PO BIDPRN PRN PRN Reason: Constipation Famotidine (Pepcid) 20 mg SLOW IVP 0900 HOLLIS Last Admin: 02/14/18 09:19 Dose: 20 mg Glucagon (Glucagon) 1 mg IM PRN PRN PRN Reason: Hypoglycemia Guaifenesin (Robitussin Sf) 200 mg PO Q4H PRN PRN Reason: Cough Haloperidol Lactate (Haldol) 5 mg SLOW IVP ONE PRN PRN Reason: .AGITATION Stop: 02/14/18 19:42 Last Admin: 02/13/18 21:32 Dose: 5 mg Haloperidol Lactate (Haldol) 2.5 mg SLOW IVP Q6H PRN PRN Reason: Agitation Last Admin: 02/13/18 22:43 Dose: 2.5 mg Hydralazine HCl (Apresoline) 10 mg SLOW IVP Q4H PRN PRN Reason: Systolic BP > 180 Nicardipine HCl 25 mg/ Sodium (Chloride) 250 mls @ 0 mls/hr IVPB INF PRN; Protocol; Titrate PRN Reason: For SBP > 150 or DBP > 90 Last Admin: 02/14/18 05:24 Dose: 250 mls Dextrose/Water (D5w) 1,000 mls @ 0 mls/hr IV .Q0M PRN; As Directed PRN Reason: Hypoglycemia Cefazolin Sodium 1 gm/ Syringe (2.5 ml/ Sterile Water) 10 mls @ 120 mls/hr SLOW IVP 0100,0900,1700 [facility] Last Admin: 02/14/18 09:19 Dose: 10 mls Sodium Chloride (1/2 Normal Saline) 1,000 mls @ 125 mls/hr IV .Q8H [facility] Last Admin: 02/14/18 10:55 Dose: 1,000 mls Insulin Human Lispro (Humalog) 0 units SC .MODERATE SLIDING SC PRN PRN Reason: Moderate Correctional Scale Last Admin: 02/14/18 06:23 Dose: 2 units Insulin Human Lispro (Humalog) 0 units SC .BEDTIME SLIDING SC PRN PRN Reason: Bedtime Correctional Scale Loratadine (Claritin) 10 mg PO DAILYPRN PRN PRN Reason: Sinus Symptoms Magnesium Hydroxide (Milk Of Magnesium) 30 ml PO BIDPRN PRN PRN Reason: Constipation Mineral Oil/White Petrolatum (Eucerin Cream) 0 gm TOP BIDPRN PRN PRN Reason: Dry Skin Ondansetron HCl (Zofran Odt) 4 mg PO Q6H PRN PRN Reason: Nausea/Vomiting Ondansetron HCl (Zofran) 4 mg IVP Q6H PRN PRN Reason: Nausea/Vomiting Last Admin: 02/13/18 18:26 Dose: 4 mg Phenol (Chloraseptic [place] 180 Ml Bot) 0 ml PO PRN PRN PRN Reason: Sore Throat Quetiapine Fumarate (Seroquel) 25 mg PO ONE PRN PRN Reason: .AGITATION Stop: 02/14/18 19:41 Last Admin: 02/13/18 19:47 Dose: 25 mg Sodium Chloride (Flush - Normal Saline) 10 ml IVF PRN PRN PRN Reason: Saline Flush Last Admin: 02/14/18 09:21 Dose: 10 ml Sodium Chloride ([place] Nasal [place] 0.65%) 0 ml EA NARE QIDPRN PRN PRN Reason: Nasal Congestion Zolpidem Tartrate (Ambien) 5 mg PO HSPRN PRN PRN Reason: Insomnia
--- NOTE | 2018-02-14 16:04 | PRG ---
DATE OF SERVICE: 02/14/2018 Mr. 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 He has improved neurologically and is more lucid and oriented. Before surgery, he was significantly disoriented with periods of lucidity with Haldol. This has improved in the postoperative period. Hi s drain output is slightly yellow tinged consistent with xanthochromic hygroma and hematoma, it was c lear that he had a chronic subdural hematoma at the time of surgery. There has been some oozing arou nd the drain exit site not uncommon. We have kept him flat overnight. We will begin to raise the he ad of the bed over the course of the next couple hours. Should he tolerate this, we will begin activ ity as tolerated and consult podiatry. We will likely remove the drain tomorrow as his postoperative head CT is satisfactory. He will need obviously placement as he lives at home with his that I think will need obviously more assistance in the postoperative period. If he does well over the cour se of next 24 hours or so, we will likely remove the subdural drain tomorrow and plan for transfer to the floor with possibly leaving the drain in one more day dependent upon output. He is on Ancef.
[2018-02-14] MEDS: Acetaminophen 1,000 MG in Premix Bag 1 BAG IVPB PRN (16:26)
[2018-02-14] MEDS: hydrALAZINE 20 MG/ML VIAL SLOW IVP PRN (20:02)
[2018-02-14] MEDS: Haloperidol Lactate 5 MG/ML VIAL SLOW IVP PRN (20:58)
[2018-02-15] MEDS: CEFAZOLIN 1 GM, Syringe 2.5 ML in Sterile Water 7.5 ML SLOW IVP SCH ×3 (00:07→16:45)
[2018-02-15] MEDS: niCARdipine HCl 25 MG in Sodium Chloride 0.9% 250 ML 240 ML IVPB PRN ×2 (00:07→06:36)
[2018-02-15] MEDS: Acetaminophen 1,000 MG in Premix Bag 1 BAG IVPB PRN ×2 (01:09→08:22)
[2018-02-15] MEDS: Sodium Chloride 0.45% 1,000 ML IV SCH ×3 (02:32→19:34)
[2018-02-15] MEDS: hydrALAZINE 20 MG/ML VIAL SLOW IVP PRN ×3 (05:48→19:32)
[2018-02-15 05:50] LABS: Anion Gap 11 mmol/L (10-20); BUN (Urea Nitrogen) 17 mg/dL (8.4-25.7); Calc. Creatinine Clearance 47 mL/min (70-130); Calcium 8.8 mg/dL (7.8-10.44); Carbon Dioxide 21 mmol/L (23-31); Chloride 108 mmol/L (98-107); Estimated GFR-MDRD 56; Glucose 155 mg/dL (83-110); Magnesium 1.8 mg/dL (1.6-2.6); Phosphorus 2.2 mg/dL (2.3-4.7); Potassium 3.8 mmol/L (3.5-5.1); Sodium 136 mmol/L (136-145)
--- NOTE | 2018-02-15 08:19 | PRG ---
DATE OF SERVICE: 02/15/2018 Mr. Alexander is now postoperative day #2, having undergone a right bur hole placement for evacuation of a subdural hematoma. He has intermittently required Haldol for agitation. He does not have any pain complaints at this time. Drain output has been minimal. He has been requiring Cardene drip intermi ttently for systolic blood pressure greater than 150. He has not yet ambulated or gotten up to a edwige ir. He is oriented to person, but not to place and time which apparently is his baseline. He does f ollow commands in all 4 extremities. He is minimally verbal and is not always appropriate. At this time what is keeping him in the unit is his Cardene drip. I have also left his drain as long as he w ill be in the unit, but I am okay with mobilizing as tolerated. We can continue with good blood pres sure control, it would be okay with removing his drain today and getting him to the floor if he is me dically stable. We will continue to follow the patient. Please call with any questions or changes i n the patient's neurologic status.
--- NOTE | 2018-02-15 08:57 | PRG ---
DATE OF SERVICE: 02/15/2018 SERVICE: Pulmonary Medicine. INTERVAL HISTORY: The patient is doing fine from a cardiovascular and respiratory standpoint. He is actually quite a bit more alert today. He denies any pain, shortness of breath, nausea, vomiting or diarrhea. He has not had any cough. He is not taking great nutrition. Otherwise, there has been n o interval change to his condition. PHYSICAL EXAMINATION: VITAL SIGNS: Afebrile, pulse 91, blood pressure 153/52, respirations 15, saturation 97% on room air. GENERAL: The patient is awake and alert, in no apparent distress. LUNGS: Decent air entry with no prolonged expiratory phase, wheezing, rhonchi or crackles. HEART: Normal rate, regular. ABDOMEN: Soft, nontender, and nondistended. Bowel sounds are positive. MUSCULOSKELETAL: No cyanosis or clubbing. There is no pitting in the bilateral lower extremities. LABORATORY DATA: Chloride 108, creatinine 1.22 and gently down trending. Basic metabolic profile is otherwise unremarkable. Phosphorus is 2.2, potassium 3.8, magnesium 1.8. ASSESSMENT: 1. Subdural hematoma. 2. Encephalopathy secondary to #1, improving dramatically. 3. Status post craniotomy. DISCUSSION, AND PLAN: Apparently, the drain is going to be removed today as it has not, put much out . His mentation has improved dramatically. We will work on mobilizing him today. Phosphorus and ma gnesium will be replaced. I will give a little bit of potassium as well. 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 Once he starts moving a touch more, we can transition to the floor. We will wean the Cardizem drip as tolerated.
[2018-02-15] MEDS ORDERED: glipiZIDE 5 MG TAB PO SCH (09:00)
[2018-02-15] MEDS ORDERED: Carvedilol 6.25 MG TAB PO SCH (09:00)
[2018-02-15] MEDS ORDERED: Magnesium 2 GM/NS 0.9% 100 ML 2 GM in Premix Bag 1 BAG IVPB SCH (09:15)
[2018-02-15] MEDS: glipiZIDE 5 MG TAB PO SCH ×2 (09:25→21:52)
[2018-02-15] MEDS ORDERED: Potassium Phosphate 30 MMOL in Sodium Chloride 0.9% 500 ML IVPB SCH (09:30)
[2018-02-15] MEDS: Carvedilol 6.25 MG TAB PO SCH (16:46)
--- NOTE | 2018-02-15 21:02 | PDOC.PN ---
- Subjective Encounter Start Date: 02/15/18 Encounter Start Time: 14:10 -: old records requested/rev Pt seen and examined, chart reviewed in its entirety, this is my first visit with this patient admitted for fall, SDH, to [facility] for evacuation, we are consulted for med management. karmen to be removed today, has been very inappropriate with female nurses and providers. No N/V/D/c, no F/C,no CP or sOB. 10 point ROS performed and neg for all systems except as per HPI - Objective Resuscitation Status: Resuscitation Status FULL:Full Resuscitation MAR Reviewed: Yes Vital Signs & Weight: Vital Signs (12 hours) Temp Pulse Pulse Pulse BP BP BP 02/15/18 19:32 74 165/66 H 02/15/18 16:46 149/59 H 02/15/18 16:00 98.4 F 02/15/18 15:02 145/54 H 02/15/18 14:35 75 76 153/66 H 147/72 H 02/15/18 12:00 98 F 02/15/18 09:33 145/54 H Pulse Ox Pulse Ox 02/15/18 19:32 02/15/18 16:46 02/15/18 16:00 02/15/18 15:02 02/15/18 14:35 100 100 02/15/18 12:00 02/15/18 09:33 Weight Admit Weight 169 lb Weight 169 lb 1.513 oz Most Recent Monitor Data Heart Rate from ECG 75 NIBP 147/47 NIBP BP-Mean 66 Respiration from ECG 15 SpO2 99 I&O: 02/14/18 02/15/18 02/16/18 06:59 06:59 06:59 Intake Total 2888 3192 1506 Output Total 2320 2115 733 Balance 568 1077 773 Result Diagrams: 02/16/18 03:51 02/16/18 03:51 Additional Labs: Accuchecks 02/15/18 02/15/18 02/15/18 16:31 12:04 00:14 POC Glucose 159 H 156 H 154 H Radiology Reviewed by me: Yes EKG Reviewed by me: Yes Phys Exam - Physical Examination Constitutional: NAD HEENT: PERRLA, moist MMs, sclera anicteric, oral pharynx no lesions Neck: no nodes, no JVD, supple, full ROM Respiratory: no wheezing, no rales, no rhonchi, clear to auscultation bilateral Cardiovascular: RRR, no significant murmur, no rub Gastrointestinal: soft, non-tender, no distention, positive bowel sounds Musculoskeletal: no edema, pulses present Neurological: non-focal, normal sensation, moves all 4 limbs Lymphatic: no nodes Psychiatric: normal affect, A&O x 3 Skin: no rash, normal turgor, cap refill <2 seconds Dx/Plan (1) Encephalopathy acute Code(s): G93.40 - ENCEPHALOPATHY, UNSPECIFIED Status: Acute (2) Fall Code(s): W19.XXXA - UNSPECIFIED FALL, INITIAL ENCOUNTER Status: Acute (3) Subdural hematoma Code(s): I62.00 - NONTRAUMATIC SUBDURAL HEMORRHAGE, UNSPECIFIED Status: Acute Comment: acute on chronic, with midline shift, s/p burhole evaluation (4) CAD (coronary artery disease) Code(s): I25.10 - ATHSCL HEART DISEASE OF [place] CORONARY ARTERY W/O ANG PCTRS Status: Chronic Qualifiers: Coronary Disease-Associated Artery/Lesion type: [place] artery [place] vs. transplanted heart: [place] heart Associated angina: without angina Qualified Code(s): I25.10 - Atherosclerotic heart disease of [place] coronary artery without angina pectoris (5) Chronic kidney disease, stage 3 Code(s): N18.3 - CHRONIC KIDNEY DISEASE, STAGE 3 (MODERATE) Status: Chronic (6) Diabetes type 2, controlled Code(s): E11.9 - TYPE 2 DIABETES MELLITUS WITHOUT COMPLICATIONS Status: Chronic Qualifiers: Diabetes mellitus nursing home insulin use: with nursing home use Diabetes mellitus complication status: with circulatory complication Diabetes mellitus complication detail: with peripheral angiopathy without gangrene Qualified Code(s): E11.51 - Type 2 diabetes mellitus with diabetic peripheral angiopathy without gangrene; Z79.4 - termite exterminator helper (current) use of insulin; Z79.4 - termite exterminator helper (current) use of insulin; Z79.4 - termite exterminator helper (current) use of insulin; Z79.4 - termite exterminator helper (current) use of insulin (7) H/O: CVA (cerebrovascular accident) Code(s): Z86.73 - PRSNL HX OF TIA (TIA), AND CEREB INFRC W/O RESID DEFICITS Status: Chronic (8) Hypertension Code(s): I10 - ESSENTIAL (PRIMARY) HYPERTENSION Status: Chronic Qualifiers: Hypertension type: essential hypertension (9) Peripheral vascular occlusive disease Code(s): I73.9 - PERIPHERAL VASCULAR DISEASE, UNSPECIFIED Status: Chronic - Plan cont current plan of care, plan discussed w/ family, PT/OT, incentive spirometry , out of bed/ambulate * .
[2018-02-16] MEDS: CEFAZOLIN 1 GM, Syringe 2.5 ML in Sterile Water 7.5 ML SLOW IVP SCH (01:15)
[2018-02-16] MEDS: hydrALAZINE 20 MG/ML VIAL SLOW IVP PRN ×3 (01:16→10:08)
[2018-02-16 04:27] LABS: #Basophils 0.1 thou/uL (0.0-0.2); #Eosinphils 0.3 thou/uL (0.0-0.7); #Lymphocytes 1.5 thou/uL (1.20-3.40); #Monocytes 0.8 thou/uL (0.11-0.59); #Neutrophils 5.3 thou/uL (1.40-6.50); %Basophils 0.8 % (0.0-1.0); %Eosinophils 3.2 % (0.0-10.0); %Lymphocytes 18.9 % (21.0-51.0); %Neutrophils 67.2 % (42.0-75.0); Hemoglobin 11.6 g/dL (14.0-18.0); Mean Corpuscular HGB CONC 34.5 g/dL (32.0-36.0); Mean Corpuscular Hemoglobin 29.5 pg (27.0-31.0); Mean Corpuscular Volume 85.5 fl (80.0-94.0); Mean Platelet Volume 7.1 fL (7.4-10.4); Platelet Count 198 thou/uL (130-400); RBC Distribution Width 12.9 % (11.5-14.5); Red Blood Cell (RBC) Count 3.94 mill/uL (4.70-6.10); White Blood Cell (WBC) Count 7.9 thou/uL (4.8-10.8)
[2018-02-16 04:43] LABS: Anion Gap 11 mmol/L (10-20); BUN (Urea Nitrogen) 17 mg/dL (8.4-25.7); Calc. Creatinine Clearance 50 mL/min (70-130); Calcium 8.3 mg/dL (7.8-10.44); Carbon Dioxide 20 mmol/L (23-31); Chloride 107 mmol/L (98-107); Estimated GFR-MDRD 60; Glucose 166 mg/dL (83-110); Magnesium 2.1 mg/dL (1.6-2.6); Potassium 3.7 mmol/L (3.5-5.1); Sodium 134 mmol/L (136-145)
[2018-02-16] MEDS: glipiZIDE 5 MG TAB PO SCH ×2 (08:18→19:45)
[2018-02-16] MEDS: Carvedilol 6.25 MG TAB PO SCH ×2 (08:18→17:42)
--- NOTE | 2018-02-16 08:21 | PRG ---
DATE OF SERVICE: 02/16/2018 SUBJECTIVE: Mr. Alexander is now postoperative day #3, having undergone right cooper hole placement for ev acuation of subdural hematoma. He is improving overall. He continues to be intermittently agitated. He is sitting up in a chair and attempts to answer questions correctly. Blood pressures remained a bit of an issue and he has been intermittently needed Cardene; however, his home medications have no t been restarted, so we can restart these and see how his blood pressure improves. Sodium is slightl y low at 134. He is able to follow commands in all 4 extremities. He is oriented to person, but is not oriented to place and time which is apparently baseline for him and he is stable for transfer to the floor at any time. Please call with any questions or changes in the patient's neurologic status. Chris Palmer PA-C dictating for Dr. Izaiah Gardner.
--- NOTE | 2018-02-16 10:23 | PRG ---
DATE OF SERVICE: 02/16/2018 SERVICE: Pulmonary Medicine. INTERVAL HISTORY: The patient is doing fine from a cardiovascular and respiratory standpoint. He de nies any chest pain, nausea, vomiting or shortness of breath. His mentation is much improved. He is eating fantastically. Otherwise, there has been no change to his condition. PHYSICAL EXAMINATION: VITAL SIGNS: Afebrile, pulse 63, blood pressure 141/58, respirations 12, saturation 100% on room air . GENERAL: The patient is awake, alert, no apparent distress. LUNGS: Decent air entry. There is no prolonged expiratory phase, wheezing, rhonchi or crackles. HEART: Normal rate, regular. ABDOMEN: Soft, nontender, and nondistended. Bowel sounds are positive. MUSCULOSKELETAL: No cyanosis or clubbing. There is no pitting in the bilateral lower extremities. NEUROLOGIC: Grossly nonfocal. LABORATORY DATA: WBC 7.9, hemoglobin 11.6, platelets 198,000, bicarbonate 20. Basic metabolic profi le is otherwise unremarkable. Magnesium is normal. Creatinine has trended downward to 1.16. ASSESSMENT: 1. Subdural hematoma. 2. Encephalopathy secondary to #1, resolved. 3. Status post craniotomy. 4. Acute kidney injury, resolved. PLAN: I will stop the IV fluids if his appetite is fantastic. We will increase some of his p.o. blo od pressure medications. Potassium to be replaced. Montiel catheter to be removed. Ultimately, I thi nk he can transition to the surgical unit as he does not require telemetry for subdural lesion. We w ill need to make certain we do neuro checks q.4 hours.
[2018-02-16] MEDS ORDERED: Amlodipine 5 MG TAB PO SCH (10:30)
[2018-02-16] MEDS: HumaLOG 300 UNITS/3 ML VIAL SC PRN (11:14)
--- NOTE | 2018-02-16 13:03 | PDOC.PN ---
- Subjective Encounter Start Date: 02/16/18 Encounter Start Time: 10:55 Pt just up withPT, made it 90 feet. minimal headache, no F/C, no N/V/d/c, holli po well. Pt has an advanced directive, will bring it upnext time, in the meantime, will keep him full code. MS stable, still not at baseline, but appears calm and unobstruive at present 10 point ROS performed and neg for all systems except as per HPI - Objective Resuscitation Status: Resuscitation Status FULL:Full Resuscitation MAR Reviewed: Yes Vital Signs & Weight: Vital Signs (12 hours) Temp Pulse Resp BP Pulse Ox 02/16/18 11:16 69 138/53 L 02/16/18 10:08 124/46 L 02/16/18 08:18 124/46 L 02/16/18 07:29 98.6 F 77 20 100 02/16/18 05:03 77 174/62 H 02/16/18 01:16 82 182/67 H Weight Admit Weight 169 lb Weight 167 lb 8.821 oz Most Recent Monitor Data Heart Rate from ECG 69 NIBP 138/53 NIBP BP-Mean 76 Respiration from ECG 22 SpO2 100 I&O: 02/15/18 02/16/18 02/17/18 06:59 06:59 06:59 Intake Total 3192 2656 710 Output Total 3085 2908 275 Balance 1077 -252 435 Result Diagrams: 02/16/18 03:51 02/16/18 03:51 Additional Labs: Accuchecks 02/16/18 02/15/18 02/15/18 11:10 21:48 16:31 POC Glucose 212 H 144 H 159 H Phys Exam - Physical Examination Constitutional: NAD HEENT: PERRLA, moist MMs, sclera anicteric, oral pharynx no lesions Neck: no nodes, no JVD, supple, full ROM Respiratory: no wheezing, no rales, no rhonchi, clear to auscultation bilateral Cardiovascular: RRR, no significant murmur, no rub Gastrointestinal: soft, non-tender, no distention, positive bowel sounds Musculoskeletal: no edema, pulses present Neurological: non-focal, normal sensation, moves all 4 limbs Lymphatic: no nodes Psychiatric: normal affect, A&O x 3 Skin: no rash, normal turgor, cap refill <2 seconds Dx/Plan (1) Encephalopathy acute Code(s): G93.40 - ENCEPHALOPATHY, UNSPECIFIED Status: Acute Comment: improving slowly. very impulsive, no social inhibition, memory a little worse than normal per (2) Fall Code(s): W19.XXXA - UNSPECIFIED FALL, INITIAL ENCOUNTER Status: Acute Qualifiers: Encounter type: initial encounter Qualified Code(s): W19.XXXA - Unspecified fall, initial encounter (3) Subdural hematoma Code(s): I62.00 - NONTRAUMATIC SUBDURAL HEMORRHAGE, UNSPECIFIED Status: Acute Comment: acute on chronic, with midline shift, s/p burhole evaluation (4) CAD (coronary artery disease) Code(s): I25.10 - ATHSCL HEART DISEASE OF [place] CORONARY ARTERY W/O ANG PCTRS Status: Chronic Qualifiers: Coronary Disease-Associated Artery/Lesion type: [place] artery [place] vs. transplanted heart: [place] heart Associated angina: without angina Qualified Code(s): I25.10 - Atherosclerotic heart disease of [place] coronary artery without angina pectoris (5) Chronic kidney disease, stage 3 Code(s): N18.3 - CHRONIC KIDNEY DISEASE, STAGE 3 (MODERATE) Status: Chronic (6) Diabetes type 2, controlled Code(s): E11.9 - TYPE 2 DIABETES MELLITUS WITHOUT COMPLICATIONS Status: Chronic Qualifiers: Diabetes mellitus superintendent container terminal insulin use: with detention use Diabetes mellitus complication status: with circulatory complication Diabetes mellitus complication detail: with peripheral angiopathy without gangrene Qualified Code(s): E11.51 - Type 2 diabetes mellitus with diabetic peripheral angiopathy without gangrene; Z79.4 - senior care (current) use of insulin; Z79.4 - senior care (current) use of insulin; Z79.4 - senior care (current) use of insulin; Z79.4 - senior care (current) use of insulin (7) H/O: CVA (cerebrovascular accident) Code(s): Z86.73 - PRSNL HX OF TIA (TIA), AND CEREB INFRC W/O RESID DEFICITS Status: Chronic (8) Hypertension Code(s): I10 - ESSENTIAL (PRIMARY) HYPERTENSION Status: Chronic Qualifiers: Hypertension type: essential hypertension (9) Peripheral vascular occlusive disease Code(s): I73.9 - PERIPHERAL VASCULAR DISEASE, UNSPECIFIED Status: Chronic - Plan * .
[2018-02-16] MEDS: hydrALAZINE 25 MG TAB PO SCH ×2 (14:38→19:45)
[2018-02-16] MEDS ORDERED: cloNIDine 0.1 MG TAB PO PRN (21:45)
[2018-02-17] MEDS ORDERED: Tamsulosin HCl 0.4 MG CAP PO SCH (07:30)
[2018-02-17] MEDS: glipiZIDE 5 MG TAB PO SCH ×2 (07:37→21:06)
[2018-02-17] MEDS: Carvedilol 6.25 MG TAB PO SCH ×2 (07:37→16:12)
[2018-02-17] MEDS: hydrALAZINE 25 MG TAB PO SCH ×3 (07:37→21:05)
[2018-02-17] MEDS: Amlodipine 5 MG TAB PO SCH (07:38)
--- NOTE | 2018-02-17 08:24 | PRG ---
DATE OF SERVICE: 02/17/2018 He is still very confused, but calm and seems to be doing well otherwise. PHYSICAL EXAMINATION: VITAL SIGNS: His temperature is 98.3, pulse 84, blood pressure 176/69, sat 95%. HEENT: Unremarkable. NECK: No JVD. CHEST: Clear without wheezing or rhonchi. CARDIAC: S1 and S2 regular. ABDOMEN: Soft. EXTREMITIES: No edema. LABORATORY DATA: No labs were obtained today. ASSESSMENT: 1. Chronic subdural hematoma with altered mental status. 2. Status post cooper holes. 3. Encephalopathy, which is improved. PLAN: This is mainly a rehab issue at this point. No further Pulmonary Critical Care recommendation s. We will sign off the case. Please recall if further assistance needed.
[2018-02-17] MEDS: HumaLOG 300 UNITS/3 ML VIAL SC PRN (12:17)
[2018-02-17 12:49] VITALS: BMI 25.9
--- NOTE | 2018-02-17 13:31 | PDOC.PN ---
- Subjective Encounter Start Date: 02/17/18 Encounter Start Time: 13:30 Subjective: Patient without complaints. Mildly confused. Just got back from -: work with physical therapy. - Objective Resuscitation Status: Resuscitation Status FULL:Full Resuscitation MAR Reviewed: Yes Vital Signs & Weight: Vital Signs (12 hours) Temp Pulse Resp BP BP Pulse Ox 02/17/18 12:23 101/58 L 02/17/18 08:45 98.4 F 74 20 94 L 02/17/18 07:38 74 179/69 H 02/17/18 07:37 74 179/69 H 02/17/18 07:21 98.4 F 74 20 179/69 H 94 L 02/17/18 04:39 98.3 F 62 16 150/68 H 95 Weight Admit Weight 169 lb Weight 181 lb Most Recent Monitor Data Heart Rate from ECG 69 NIBP 138/53 NIBP BP-Mean 76 Respiration from ECG 22 SpO2 100 I&O: 02/16/18 02/17/18 02/18/18 06:59 06:59 06:59 Intake Total 2656 890 110 Output Total 2908 1000 725 Balance -252 -110 -615 Result Diagrams: 02/16/18 03:51 02/16/18 03:51 Additional Labs: Accuchecks 02/17/18 02/17/18 02/16/18 11:50 06:45 21:59 POC Glucose 288 H 138 H 202 H 02/16/18 16:56 POC Glucose 127 H Phys Exam - Physical Examination Constitutional: NAD HEENT: moist MMs Respiratory: no wheezing, no rales, no rhonchi, clear to auscultation bilateral Cardiovascular: RRR, no significant murmur Gastrointestinal: soft, positive bowel sounds Neurological: non-focal Psychiatric: normal affect Deviation from normal: oriented to person only Deviation from normal: incisions on scalp closed with tye, no drains in place Dx/Plan (1) Subdural hematoma Code(s): I62.00 - NONTRAUMATIC SUBDURAL HEMORRHAGE, UNSPECIFIED Status: Acute Comment: acute on chronic, with midline shift, s/p burhole evaluation (2) Encephalopathy acute Code(s): G93.40 - ENCEPHALOPATHY, UNSPECIFIED Status: Acute Comment: improving slowly. very impulsive, no social inhibition, memory a little worse than normal per (3) Fall Code(s): W19.XXXA - UNSPECIFIED FALL, INITIAL ENCOUNTER Status: Acute Qualifiers: Encounter type: initial encounter Qualified Code(s): W19.XXXA - Unspecified fall, initial encounter (4) Dementia Code(s): F03.90 - UNSPECIFIED DEMENTIA WITHOUT BEHAVIORAL DISTURBANCE Status: Chronic (5) CAD (coronary artery disease) Code(s): I25.10 - ATHSCL HEART DISEASE OF [place] CORONARY ARTERY W/O ANG PCTRS Status: Chronic Qualifiers: Coronary Disease-Associated Artery/Lesion type: [place] artery [place] vs. transplanted heart: [place] heart Associated angina: without angina Qualified Code(s): I25.10 - Atherosclerotic heart disease of [place] coronary artery without angina pectoris (6) Chronic kidney disease, stage 3 Code(s): N18.3 - CHRONIC KIDNEY DISEASE, STAGE 3 (MODERATE) Status: Chronic (7) Diabetes type 2, controlled Code(s): E11.9 - TYPE 2 DIABETES MELLITUS WITHOUT COMPLICATIONS Status: Chronic Qualifiers: Diabetes mellitus termite control servicer insulin use: with termite control servicer use Diabetes mellitus complication status: with circulatory complication Diabetes mellitus complication detail: with peripheral angiopathy without gangrene Qualified Code(s): E11.51 - Type 2 diabetes mellitus with diabetic peripheral angiopathy without gangrene; Z79.4 - terminal gauger supervisor (current) use of insulin; Z79.4 - terminal gauger supervisor (current) use of insulin; Z79.4 - senior living (current) use of insulin; Z79.4 - senior living (current) use of insulin (8) H/O: CVA (cerebrovascular accident) Code(s): Z86.73 - PRSNL HX OF TIA (TIA), AND CEREB INFRC W/O RESID DEFICITS Status: Chronic (9) Hypertension Code(s): I10 - ESSENTIAL (PRIMARY) HYPERTENSION Status: Chronic Qualifiers: Hypertension type: essential hypertension Qualified Code(s): I10 - Essential (primary) hypertension (10) Peripheral vascular occlusive disease Code(s): I73.9 - PERIPHERAL VASCULAR DISEASE, UNSPECIFIED Status: Chronic - Plan cont current plan of care, PT/OT to rehab when accepted and cleared for d/c by neurosurg. * . - Discharge Day Encounter end time: 13:50
--- NOTE | 2018-02-17 16:34 | PRG ---
DATE OF SERVICE: 02/17/2018 Mr. Alexander is postoperative day 1 from right-sided bur hole evacuation. He is doing very well. He is improved in his lucidity, following commands, and tolerating orals. His wounds are healing well. D isposition is main issue.
[2018-02-18] MEDS: Amlodipine 5 MG TAB PO SCH (08:53)
[2018-02-18] MEDS: Carvedilol 6.25 MG TAB PO SCH (08:53)
[2018-02-18] MEDS: glipiZIDE 5 MG TAB PO SCH (08:53)
[2018-02-18] MEDS: hydrALAZINE 25 MG TAB PO SCH ×2 (08:53→15:19)
--- NOTE | 2018-02-18 09:59 | PDOC.PN ---
- Subjective Encounter Start Date: 02/18/18 Encounter Start Time: 14:30 Subjective: Patient doing well. No complaints. Pleasant. - Objective Resuscitation Status: Resuscitation Status FULL:Full Resuscitation MAR Reviewed: Yes Vital Signs & Weight: Vital Signs (12 hours) Temp Pulse Resp BP BP BP Pulse Ox 02/18/18 08:53 59 L 159/66 H 02/18/18 07:25 98.4 F 59 L 18 159/66 H 02/18/18 04:22 98.5 F 66 16 187/77 H 93 L 02/17/18 23:28 97.4 F L 66 16 156/53 H 93 L Weight Admit Weight 169 lb Weight 6.233 oz Most Recent Monitor Data Heart Rate from ECG 69 NIBP 138/53 NIBP BP-Mean 76 Respiration from ECG 22 SpO2 100 I&O: 02/17/18 02/18/18 02/19/18 06:59 06:59 06:59 Intake Total 890 1070 Output Total 1000 2935 Balance -110 -1865 Result Diagrams: 02/16/18 03:51 02/16/18 03:51 Additional Labs: Accuchecks 02/18/18 02/17/18 02/17/18 04:27 20:47 15:42 POC Glucose 141 H 133 H 118 H 02/17/18 11:50 POC Glucose 288 H Phys Exam - Physical Examination Constitutional: NAD HEENT: moist MMs Respiratory: no wheezing, no rales, no rhonchi, clear to auscultation bilateral Cardiovascular: RRR Gastrointestinal: soft, positive bowel sounds Neurological: non-focal, moves all 4 limbs Deviation from normal: pleasantly demented, oriented to person only Dx/Plan (1) Subdural hematoma Code(s): I62.00 - NONTRAUMATIC SUBDURAL HEMORRHAGE, UNSPECIFIED Status: Acute Comment: acute on chronic, with midline shift, s/p burhole evaluation (2) Encephalopathy acute Code(s): G93.40 - ENCEPHALOPATHY, UNSPECIFIED Status: Acute Comment: improving slowly. very impulsive, no social inhibition, memory a little worse than normal per (3) Fall Code(s): W19.XXXA - UNSPECIFIED FALL, INITIAL ENCOUNTER Status: Acute Qualifiers: Encounter type: initial encounter Qualified Code(s): W19.XXXA - Unspecified fall, initial encounter (4) Dementia Code(s): F03.90 - UNSPECIFIED DEMENTIA WITHOUT BEHAVIORAL DISTURBANCE Status: Chronic (5) CAD (coronary artery disease) Code(s): I25.10 - ATHSCL HEART DISEASE OF [place] CORONARY ARTERY W/O ANG PCTRS Status: Chronic Qualifiers: Coronary Disease-Associated Artery/Lesion type: [place] artery [place] vs. transplanted heart: [place] heart Associated angina: without angina Qualified Code(s): I25.10 - Atherosclerotic heart disease of [place] coronary artery without angina pectoris (6) Chronic kidney disease, stage 3 Code(s): N18.3 - CHRONIC KIDNEY DISEASE, STAGE 3 (MODERATE) Status: Chronic (7) Diabetes type 2, controlled Code(s): E11.9 - TYPE 2 DIABETES MELLITUS WITHOUT COMPLICATIONS Status: Chronic Qualifiers: Diabetes mellitus skilled nursing insulin use: with long term care pharmacist use Diabetes mellitus complication status: with circulatory complication Diabetes mellitus complication detail: with peripheral angiopathy without gangrene Qualified Code(s): E11.51 - Type 2 diabetes mellitus with diabetic peripheral angiopathy without gangrene; Z79.4 - intermodal customer service (current) use of insulin; Z79.4 - retirement (current) use of insulin; Z79.4 - retirement (current) use of insulin; Z79.4 - intermodal customer service (current) use of insulin (8) H/O: CVA (cerebrovascular accident) Code(s): Z86.73 - PRSNL HX OF TIA (TIA), AND CEREB INFRC W/O RESID DEFICITS Status: Chronic (9) Hypertension Code(s): I10 - ESSENTIAL (PRIMARY) HYPERTENSION Status: Chronic Qualifiers: Hypertension type: essential hypertension Qualified Code(s): I10 - Essential (primary) hypertension (10) Peripheral vascular occlusive disease Code(s): I73.9 - PERIPHERAL VASCULAR DISEASE, UNSPECIFIED Status: Chronic - Plan cont current plan of care, PT/OT, speech therapy Transfer to rehab once accepted * . - Discharge Day Encounter end time: 14:50
[2018-02-18] MEDS: HumaLOG 300 UNITS/3 ML VIAL SC PRN (11:48)
[2018-02-18 15:44] VITALS: BP 139/63
[2018-02-18 15:58] VITALS: TEMP 97.8
--- NOTE | 2018-02-18 16:23 | PRG ---
DATE OF SERVICE: 02/18/2018 This is Chris Palmer PA-C dictating for Tip Pruitt M.D. SUBJECTIVE: Mr. Alexander is now postoperative day #5, having undergone a cooper hole placement for evacua tion of subdural hematoma. Patient appears to be at his neurologic baseline. He is rather confused, but is much less agitated and combative now. His is at bedside and she has been updated as sarah lopez. He is able to follow commands in all 4 extremities. He is oriented to person and knows he is in [place], but states the year is 1952. Again, his incisions are clean, dry, and intact without any sign s of drainage. He is stable for discharge from neurosurgical standpoint. We have transferred his nj imary service to medicine as well. There may be a chance the patient is accepted to rehab as early a s today and again we are okay with him discharging at any time. Appropriate followup appointments busch ve been made for the patient and we suggest holding all anticoagulants until the patient has been juliana ared by Neurosurgery. Please call with any questions or changes in patient's neurologic status.
--- NOTE | 2018-02-19 03:25 | DIS ---
PRIMARY CARE PHYSICIAN: Devin Coombs M.D. INITIAL ADMITTING TEAM: Neurosurgery, Dr. Pruitt. 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 DIAGNOSES AT DISCHARGE: 1. Subdural hematoma, status post cooper hole evacuation. 2. Acute encephalopathy, improved. 3. Fall. 4. Chronic dementia. 5. Coronary artery disease. 6. Chronic kidney disease stage 3. 7. Diabetes mellitus type 2. 8. History of CVA. 9. Hypertension. 10. Peripheral vascular disease. PROCEDURES: 1. CT of the brain without contrast showing an acute on chronic right subdural hematoma. With a rep eat CT scan showing interval decrease in the volume of the hemorrhage status post drain placement. 2. CT of the cervical spine without contrast showing no evidence of osseous abnormality. 3. Last procedure right-sided frontoparietal cooper hole evacuation of subdural hematoma and placement of subdural drain by Dr. Pruitt. CONSULTATIONS: 1. [facility], Dr. Waller. 2. Pulmonology, Dr. Beth. SUMMARY OF HOSPITAL COURSE: This is an 87-year-old white male with a known history of dementia and a left MCA stroke several years ago, who developed a subdural hematoma in January of this year at which point he stopped his 81 mg aspirin. He fell again 2 to 3 days prior to admission after tripping over his walker was diagnosed with acute on chronic subdural hematoma in the emergency room, given outpat ient followup. He has noticed an increased agitation and combativeness as well as balance issues or repetitive speech after the fall, so he brought back to the emergency room where he was noted to have the worsening acute on chronic subdural hematoma with a midline shift, so Neurosurgery was consulted and admitted the patient. We were consulted as well for medical management and Dr. Beth was cons ulted for Pulmonology. The patient had cooper hole drainage done and he had improved over the course o f hospitalization. Eventually, the drain was able to be pulled. He was back to his baseline level o f confusion from his dementia and was getting around some with physical therapy. He was initially cl eared from the neurosurgical standpoint and we are discharging him to rehab today. DISCHARGE MANAGEMENT: Discharged to inpatient rehabilitation at [facility]. ACTIVITIES: As tolerated per physical, occupational, and speech therapy. DIET: Healthy heart, low sodium diet with pureed texture solids, no straws. Oxygen as needed. Foll ow up with Dr. Gardner as an outpatient. DISCHARGE MEDICATIONS: 1. Acetaminophen 650 mg every 6 hours as needed. 2. Maalox 30 mL 4 times a day as needed. 3. Amlodipine 5 mg daily. 4. Dulcolax 10 mg per rectum as needed. 5. Carvedilol 12.5 mg twice a day. 6. Clonidine 0.4 mg p.o. as needed for severe hypertension. 7. Colace 100 mg twice a day. 8. Glipizide 5 mg twice a day. 9. Hydralazine 50 mg 3 times a day. 10. [place] as needed for pain. 11. Claritin 10 mg daily as needed. 12. Milk of Magnesia 30 mL twice a day as needed. 13. Metformin 1000 mg twice a day. 14. Zofran as needed. 15. Phenol, Chloraseptic spray as needed. 16. Simvastatin 40 mg at night. 17. [place] nasal spray as needed. 18. Ambien 5 mg at night as needed. The patient is to stop aspirin. I spent 32 minutes arranging the details of the discharge.
--- NOTE | 2018-02-19 15:09 | EKG ---
Test Reason : Blood Pressure : / mmHG Vent. Rate : 070 BPM Atrial Rate : 070 BPM P-R Int : 262 ms QRS Dur : 086 ms QT Int : 414 ms P-R-T Axes : 077 002 085 degrees QTc Int : 447 ms Poor data quality, interpretation may be adversely affected Sinus rhythm with 1st degree A-V block with Premature atrial complexes Otherwise normal ECG Confirmed by QUIRINO FAULKNER D.O. ([id number]), acquisition editor MADAI WARREN ([id number]) on 02/19/2018 3:08:00 PM Referred By: Confirmed By:QUIRINO FAULKNER D.O.
== END 2018-02-18 17:02 | DRG 25 ==
LOC: ERS 16:03 → CCU 19:37 → SURG A 02-16 12:24
PROVIDERS: ADMIT Surgery; ATTEND Surgery
PROC: 0JQ00ZZ Repair Scalp Subcutaneous Tissue and Fascia, Open Approach (ICD-10-PCS; 2018-02-10)
PROC: 00C40ZZ Extirpation of Matter from Intracranial Subdural Space, Open Approach (ICD-10-PCS; principal; 2018-02-13)
DX: W01.0XXA Fall on same level from slipping, tripping and stumbling without subsequent striking against object, initial encounter; E11.9 Type 2 diabetes mellitus without complications; Z87.891 Personal history of nicotine dependence; I25.10 Atherosclerotic heart disease of native coronary artery without angina pectoris; S06.5X0A Traumatic subdural hemorrhage without loss of consciousness, initial encounter; N18.3 Chronic kidney disease, stage 3 (moderate); E11.22 Type 2 diabetes mellitus with diabetic chronic kidney disease; R40.2142 Coma scale, eyes open, spontaneous, at arrival to emergency department; R40.2362 Coma scale, best motor response, obeys commands, at arrival to emergency department; R40.2252 Coma scale, best verbal response, oriented, at arrival to emergency department; I10 Essential (primary) hypertension; F03.90 Unspecified dementia, unspecified severity, without behavioral disturbance, psychotic disturbance, mood disturbance, and anxiety; Z79.899 Other long term (current) drug therapy; Z79.84 Long term (current) use of oral hypoglycemic drugs; G93.40 Encephalopathy, unspecified; N17.9 Acute kidney failure, unspecified; I12.9 Hypertensive chronic kidney disease with stage 1 through stage 4 chronic kidney disease, or unspecified chronic kidney disease; E11.51 Type 2 diabetes mellitus with diabetic peripheral angiopathy without gangrene; Z86.73 Personal history of transient ischemic attack (TIA), and cerebral infarction without residual deficits; S01.01XA Laceration without foreign body of scalp, initial encounter; W18.30XA Fall on same level, unspecified, initial encounter
CPT/HCPCS: 12001; 36415; 36416; 70450; 71045; 72125; 80048; 80053; 82553; 83735; 84100; 84484; 85025; 85610; 85730; 93005; A4216; G8978-GP-CN; G8979-GP-CK; G8987-GO-CN; G8988-GO-CL; G8996-GN-CK; G8997-GN-CI; J0131; J0360; J0690; J1630; J2001; J2405; J2704; J3010; J3370; J3475; J3490; J7050; S0028

== ENCOUNTER 2018-03-03 12:54 | Outpatient (CLI) | payer MEDICARE, OTHER ==
--- NOTE | 2018-03-03 13:25 | CT ---
CT OF THE BRAIN WITHOUT CONTRAST: COMPARISON: 02/14/18. HISTORY: Followup brain surgery status post fall. TECHNIQUE: Multiplanar, glover scale, and color Doppler images were obtained in a CT of the brain without contrast . FINDINGS: There is stable encephalomalacia in the left parietal lobe. The previously seen drain along the righ t frontal convexity has been removed. There is a mixed low-density/high-density fluid collection genoveva ng the right frontal convexity. This is smaller than on the prior examination measuring 1.3 cm in gr eatest dimension. A small amount of pneumocephalus is seen adjacent to the cooper hole. There is no e vidence of midline shift or downward herniation. No significant hydrocephalus is seen. IMPRESSION: Smaller acute on chronic right frontal subdural hematoma. POS: [facility]
== END 2018-03-03 12:55 | disposition home or self-care (01) ==
LOC: TBSIIMAG 12:54
PROVIDERS: ATTEND Surgery
DX: I62.03 Nontraumatic chronic subdural hemorrhage (principal)
CPT/HCPCS: 70450

== ENCOUNTER 2018-10-24 19:19 | Inpatient (IN) | payer MEDICARE, OTHER ==
[2018-10-24 19:47] LABS: #Eosinphils 0.1 thou/uL (0.0-0.7); #Monocytes 0.5 thou/uL (0.11-0.59); #Neutrophils 3.3 thou/uL (1.40-6.50); %Basophils 0.1 % (0.0-1.0); %Eosinophils 1.7 % (0.0-10.0); %Lymphocytes 20.5 % (21.0-51.0); %Monocytes 9.8 % (0.0-10.0); %Neutrophils 67.8 % (42.0-75.0); Hemoglobin 10.4 g/dL (14.0-18.0); Mean Corpuscular HGB CONC 32.9 g/dL (32.0-36.0); Mean Corpuscular Hemoglobin 28.5 pg (27.0-31.0); Mean Corpuscular Volume 86.7 fL (78.0-98.0); Mean Platelet Volume 7.1 fL (7.4-10.4); Platelet Count 242 thou/uL (130-400); RBC Distribution Width 14.4 % (11.5-14.5); Red Blood Cell (RBC) Count 3.66 mill/uL (4.70-6.10); White Blood Cell (WBC) Count 4.9 thou/uL (4.8-10.8)
[2018-10-24 20:05] LABS: ALT (SGPT) 13 U/L (8-55); AST (SGOT) 13 U/L (5-34); Albumin 3.8 g/dL (3.4-4.8); Alkaline Phosphatase 104 U/L (40-150); Anion Gap 11 mmol/L (10-20); BUN (Urea Nitrogen) 23 mg/dL (8.4-25.7); Bilirubin, Total 0.9 mg/dL (0.2-1.2); Calc. Creatinine Clearance 0 mL/min (70-130); Calcium 8.9 mg/dL (7.8-10.44); Carbon Dioxide 22 mmol/L (23-31); Chloride 107 mmol/L (98-107); Estimated GFR-MDRD 38; Globulin 3.2 g/dL (2.4-3.5); Glucose 83 mg/dL (83-110); Potassium 4.1 mmol/L (3.5-5.1); Sodium 136 mmol/L (136-145)
[2018-10-24] MEDS ORDERED: Furosemide 40 MG/4 ML VIAL ONE (20:41)
[2018-10-24] MEDS ORDERED: Nitroglycerin 2% Ointment 1 INCH/1 GM Packet ONE (20:41)
--- NOTE | 2018-10-24 20:57 | RAD ---
PORTABLE CHEST 10/24/18 PROVIDED CLINICAL HISTORY: Dyspnea. FINDINGS: Comparison 02/12/18. The cardiac silhouette appears enlarged. There is poor definition to the left hemidiaphragm which may be on the basis of cardiomegaly, pleural and/or parenchymal opacity. Prominence of the pulmonary vas culature and pulmonary interstitium with background of emphysema. Air space disease in the perihilar regions bilaterally cannot be excluded. There is no evidence for pneumothorax IMPRESSION: Cardiomegaly and findings suggesting congestive failure on a background of emphysematous change. Left basilar pleural and/or parenchymal opacity cannot be excluded. Followup is recommended. POS: [facility]
[2018-10-24] MEDS ORDERED: Acetaminophen 325 MG TAB PO PRN (21:37)
[2018-10-24] MEDS ORDERED: Ondansetron PF 4 MG/2 ML Vial IVP PRN (21:37)
[2018-10-24] MEDS ORDERED: Dextrose 5% in Water 1,000 ML IV PRN (21:40)
[2018-10-24] MEDS ORDERED: Dextrose 50% Abboject 50 ML SYRINGE SLOW IVP PRN (21:40)
[2018-10-25] VITALS: BMI 27.5
--- NOTE | 2018-10-25 01:27 | HP ---
PRIMARY CARE DOCTOR: long-term doctor. CODE STATUS: As of now, full code, has not been verified any other code. TIME OF EVALUATION: 9 p.m. CHIEF COMPLAINT: Shortness of breath. HISTORY OF PRESENT ILLNESS: This is an 88-year-old male patient with past medical history of dementia, the patient lives in [facility], was brought to the hospital after having saturation rate of 91%, associated with moderate shortness of breath. The patient did nasal cannula to improve saturation. No clear triggers, no alleviating factors. The patient has also been reported to have history of TIA, subdural hematoma, and CHF. PAST MEDICAL HISTORY: The patient has a history of coronary artery disease, diabetes type 2, hypertension, osteoarthritis, CVA, DVTs, and peripheral vascular disease. PAST SURGICAL HISTORY: Appendectomy, DVT removal in December 2016 in the left lower extremity. PSYCHIATRIC HISTORY: History of dementia. SOCIAL HISTORY: Drinks socially. No drugs. Former tobacco user. FAMILY HISTORY: Noncontributory to this case. ALLERGIES: NO KNOWN DRUG ALLERGIES REPORTED. MEDICATIONS: 1. Glipizide. 2. Amlodipine. 3. Alprazolam. PHYSICAL EXAMINATION: VITAL SIGNS: On presentation, the patient has blood pressure 164/105 with heart rate 86, respiratory rate was 16, temperature 97.8. Pain was 0/10. Oxygen saturation 93% on room air. GENERAL APPEARANCE: The patient is alert, disoriented, not in acute distress. HEENT: Eyes, normal conjunctivae. Moist oral mucosa. Anicteric. NECK: Bilateral JVD. RESPIRATORY: Bilateral air entry is decreased. Bilateral rales in lower bases. No wheezing. Symmetric expansion. CARDIOVASCULAR: Normal rate, regular rhythm. No murmurs. No gallop. Bilateral leg edema. ABDOMEN: Soft, normal bowel sounds. MUSCULOSKELETAL: Baseline range of motion and strength. No tenderness. SKIN: Warm, intact. No pallor. No rash. No redness. Peripheral pulses are present. Capillary refill seems to be intact. NEUROLOGICAL: No evidence of any new focal weakness. Baseline speech. Cranial nerves seem to be intact. PSYCHIATRIC: The patient has underlying dementia. Other than that, the patient has good mood. DIAGNOSTIC STUDIES: EKG was reviewed by myself. The patient has atrial fibrillation with some PVCs, low-voltage QRS, ventricular rate 80, QRS 80, QT corrected 454. No evidence of any acute ischemic event. Chest x-ray has been reviewed. The patient has cardiomegaly and findings suggestive of congestive heart failure on a background emphysematous changes or parenchymal opacity cannot be excluded. Followup is recommended. LABORATORY DATA: Labs were reviewed. White count 4.9, hemoglobin 10.4, MCV 86.7, platelet count 242. Chemistry: Sodium 136, potassium 4.1, chloride 107, carbon dioxide 22, anion gap 11, BUN 23, creatinine 1.73, in previous visit was 1.39. GFR 38, glucose 83, calcium 8.9. LFTs were normal. Beta natriuretic peptide 716. Troponin was negative x2. ASSESSMENT AND PLAN: The patient will be placed in the hospital with the following medical problems: 1. Possible congestive heart failure exacerbation with findings in the chest x-ray that are pointing to congestive heart failure, beta natriuretic peptide 716, we will place the patient on Lasix. The patient now has acute kidney injury that could be cardiorenal. If not improving, we might need Nephro consult for adjustment of diureses in the scenario of acute kidney injury. We will reconcile home medications. 2. Controlled diabetes. We will reconcile home medications. We will place the patient on sliding scale for optimal control. 3. Acute kidney injury. There is an increase of creatinine of more than 0.3 mg/dL from previous values, the patient needs to be evaluated, these could be cardiorenal, we will adjust treatment depending on creatinine in the morning. If not improved, might need Nephro assistance. 4. History of underlying dementia. The patient will need assistance as inpatient. 5. Uncontrolled blood pressure with systolic blood pressure 164 We will reconcile home medications, adjust treatment as needed. 6. Deep venous thromboses prophylaxis. Job ID: [id number]
[2018-10-25] MEDS: Lorazepam 2 MG/ML VIAL ONE ×2 (02:56→02:57)
[2018-10-25] MEDS ORDERED: diphenhydrAMINE 50 MG/ML VIAL IVP SCH (03:00)
[2018-10-25 06:11] LABS: #Eosinphils 0.1 thou/uL (0.0-0.7); #Lymphocytes 1.1 thou/uL (1.20-3.40); #Monocytes 0.5 thou/uL (0.11-0.59); #Neutrophils 2.7 thou/uL (1.40-6.50); %Basophils 0.5 % (0.0-1.0); %Eosinophils 1.8 % (0.0-10.0); %Lymphocytes 24.6 % (21.0-51.0); %Monocytes 10.9 % (0.0-10.0); %Neutrophils 62.2 % (42.0-75.0); Hemoglobin 9.6 g/dL (14.0-18.0); Mean Corpuscular HGB CONC 32.5 g/dL (32.0-36.0); Mean Corpuscular Hemoglobin 28.3 pg (27.0-31.0); Mean Platelet Volume 7.6 fL (7.4-10.4); Platelet Count 238 thou/uL (130-400); RBC Distribution Width 14.6 % (11.5-14.5); Red Blood Cell (RBC) Count 3.38 mill/uL (4.70-6.10); White Blood Cell (WBC) Count 4.3 thou/uL (4.8-10.8)
[2018-10-25 06:33] LABS: Anion Gap 15 mmol/L (10-20); BUN (Urea Nitrogen) 24 mg/dL (8.4-25.7); Calc. Creatinine Clearance 40 mL/min (70-130); Calcium 8.6 mg/dL (7.8-10.44); Carbon Dioxide 19 mmol/L (23-31); Chloride 108 mmol/L (98-107); Estimated GFR-MDRD 39; Glucose 134 mg/dL (83-110); Potassium 3.9 mmol/L (3.5-5.1); Sodium 138 mmol/L (136-145)
[2018-10-25 06:35] LABS: Troponin I 0.011 ng/mL (< 0.028)
[2018-10-25] MEDS ORDERED: cloNIDine 0.1 MG TAB PO PRN (08:40)
[2018-10-25] MEDS ORDERED: ALPRAZolam 0.25 MG TAB PO PRN (08:40)
[2018-10-25] MEDS ORDERED: Albuterol Sulfate 1.25 MG/3 ML NEB NEB PRN (08:40)
[2018-10-25] MEDS ORDERED: Bisacodyl 10 MG SUPP PR PRN (08:40)
[2018-10-25] MEDS ORDERED: Prevnar 13-Val Conj/PF 0.5 ML SYRINGE IM ONE (09:00)
[2018-10-25] MEDS: Furosemide 40 MG/4 ML VIAL SLOW IVP SCH (09:23)
[2018-10-25] MEDS: Heparin 5,000 UNITS/ML VIAL SC SCH ×3 (09:26→21:52)
[2018-10-25] MEDS: Amlodipine 5 MG TAB PO SCH (09:31)
[2018-10-25] MEDS: hydrALAZINE 25 MG TAB PO SCH ×3 (09:31→21:47)
[2018-10-25] MEDS: ALPRAZolam 0.5 MG TAB PO SCH (09:31)
[2018-10-25] MEDS: HumaLOG 300 UNITS/3 ML VIAL SC PRN ×2 (13:01→17:28)
--- NOTE | 2018-10-25 13:26 | PDOC.PN ---
- Subjective Encounter Start Date: 10/25/18 Encounter Start Time: 08:45 Subjective: pt up in bed does not appear in any distress - Objective Resuscitation Status - Order Detail: 10/24/18 21:37 Resuscitation Status Routine Resuscitation Status: FULL: Full Resuscitation Vital Signs & Weight: Vital Signs (12 hours) Temp Pulse Resp BP Pulse Ox 10/25/18 11:02 100 10/25/18 09:52 87 16 10/25/18 08:55 98.9 F 98 18 166/80 H 98 10/25/18 04:00 97.3 F L 92 14 152/81 H 93 L Weight Weight 197 lb 3.2 oz I&O: 10/24/18 10/25/18 10/26/18 06:59 06:59 06:59 Output Total 600 Balance -600 Result Diagrams: 10/25/18 03:40 10/25/18 03:40 Additional Labs: Accuchecks 10/25/18 10/25/18 11:19 05:34 POC Glucose 236 H 154 H Phys Exam - Physical Examination Neck: no nodes, no JVD, supple, full ROM Respiratory: wheezing present mild rhonchi all over Cardiovascular: RRR, no significant murmur, no rub, gallop, irregular Gastrointestinal: soft, non-tender, no distention, positive bowel sounds Dx/Plan (1) SOB (shortness of breath) Code(s): R06.02 - SHORTNESS OF BREATH Status: Acute (2) Chronic kidney disease, stage 3 Code(s): N18.3 - CHRONIC KIDNEY DISEASE, STAGE 3 (MODERATE) Status: Chronic (3) Diabetes type 2, controlled Code(s): E11.9 - TYPE 2 DIABETES MELLITUS WITHOUT COMPLICATIONS Status: Chronic Qualifiers: (4) Dementia Code(s): F03.90 - UNSPECIFIED DEMENTIA WITHOUT BEHAVIORAL DISTURBANCE Status: Chronic - Plan will continue lasix for now, will add steroids since he does have some -: wheezing, continue duoneb. will consult PT -: will continue home medication -: will check for viral infection * . Review of Systems - Review of Systems Other: unable to obtain - Medications/Allergies Allergies/Adverse Reactions: Allergies Allergy/AdvReac Type Severity Reaction Status Date / Time No Known Allergies Allergy Verified 10/25/18 00:21 Medications: Current Medications Acetaminophen (Tylenol) 650 mg PO Q4H PRN PRN Reason: Headache/Fever/Mild Pain (1-3) Albuterol Sulfate (Albuterol Sulfate) 1.25 mg NEB Q8H PRN PRN Reason: Dyspnea Albuterol/Ipratropium (Duoneb) 3 ml NEB [id number] [facility] Last Admin: 10/25/18 09:52 Dose: 3 ml Alprazolam (Xanax) 0.5 mg PO DAILY [facility] Last Admin: 10/25/18 09:31 Dose: 0.5 mg Alprazolam (Xanax) 0.25 mg PO DAILY PRN PRN Reason: Anxiety/Agitation Amlodipine Besylate (Norvasc) 5 mg PO DAILY [facility] Last Admin: 10/25/18 09:31 Dose: 5 mg Bisacodyl (Dulcolax) 10 mg [place] DAILYPRN PRN PRN Reason: Constipation Carvedilol (Coreg) 12.5 mg PO BID-[facility] Clonidine (Catapres) 0.1 mg PO Q6H PRN PRN Reason: Hypertension Dextrose/Water (Dextrose 50%) 25 gm SLOW IVP PRN PRN PRN Reason: Hypoglycemia Furosemide (Lasix) 40 mg SLOW IVP DAILY [facility] Last Admin: 10/25/18 09:23 Dose: 40 mg Glipizide (Glucotrol) 5 mg PO DAILY-[facility] Glucagon (Glucagon) 1 mg IM PRN PRN PRN Reason: Hypoglycemia Heparin Sodium (Porcine) (Heparin) 5,000 units SC TID [facility] Last Admin: 10/25/18 09:26 Dose: 5,000 units Hydralazine HCl (Apresoline) 50 mg PO TID [facility] Last Admin: 10/25/18 09:31 Dose: 50 mg Dextrose/Water (D5w) 1,000 mls @ 0 mls/hr IV .Q0M PRN PRN Reason: Hypoglycemia Insulin Human Lispro (Humalog) 0 units SC .MILD SLIDING SCALE PRN PRN Reason: Mild Correctional Scale Last Admin: 10/25/18 13:01 Dose: 3 unit Methylprednisolone Sodium Succinate (Solu-Medrol) 40 mg IVP DAILY [facility] Ondansetron HCl (Zofran) 4 mg IVP Q6H PRN PRN Reason: Nausea/Vomiting Pantoprazole Sodium (Protonix) 20 mg PO DAILY [facility] Last Admin: 10/25/18 09:31 Dose: 20 mg Quetiapine Fumarate (Seroquel) 100 mg PO BID [facility] Last Admin: 10/25/18 09:31 Dose: 100 mg
[2018-10-25] MEDS: Carvedilol 6.25 MG TAB PO SCH (17:03)
[2018-10-26 08:03] LABS: #Lymphocytes 1.1 thou/uL (1.20-3.40); #Monocytes 0.6 thou/uL (0.11-0.59); #Neutrophils 4.4 thou/uL (1.40-6.50); %Basophils 0.4 % (0.0-1.0); %Eosinophils 0.5 % (0.0-10.0); %Lymphocytes 17.9 % (21.0-51.0); %Monocytes 10.2 % (0.0-10.0); Hemoglobin 10.6 g/dL (14.0-18.0); Mean Corpuscular HGB CONC 32.5 g/dL (32.0-36.0); Mean Corpuscular Hemoglobin 28.1 pg (27.0-31.0); Mean Corpuscular Volume 86.5 fL (78.0-98.0); Mean Platelet Volume 7.3 fL (7.4-10.4); Platelet Count 265 thou/uL (130-400); RBC Distribution Width 14.8 % (11.5-14.5); Red Blood Cell (RBC) Count 3.76 mill/uL (4.70-6.10); White Blood Cell (WBC) Count 6.2 thou/uL (4.8-10.8)
[2018-10-26 08:23] LABS: Anion Gap 13 mmol/L (10-20); BUN (Urea Nitrogen) 27 mg/dL (8.4-25.7); Calc. Creatinine Clearance 35 mL/min (70-130); Calcium 8.8 mg/dL (7.8-10.44); Carbon Dioxide 25 mmol/L (23-31); Chloride 105 mmol/L (98-107); Estimated GFR-MDRD 36; Glucose 163 mg/dL (83-110); Potassium 3.8 mmol/L (3.5-5.1); Sodium 139 mmol/L (136-145)
[2018-10-26] MEDS: Furosemide 40 MG/4 ML VIAL SLOW IVP SCH (08:28)
[2018-10-26] MEDS: Carvedilol 6.25 MG TAB PO SCH ×2 (08:29→17:39)
[2018-10-26] MEDS: Amlodipine 5 MG TAB PO SCH (08:29)
[2018-10-26] MEDS: hydrALAZINE 25 MG TAB PO SCH ×3 (08:29→20:54)
[2018-10-26] MEDS: glipiZIDE 5 MG TAB PO SCH (08:29)
[2018-10-26] MEDS: ALPRAZolam 0.5 MG TAB PO SCH (08:29)
[2018-10-26] MEDS: Heparin 5,000 UNITS/ML VIAL SC SCH ×3 (08:30→20:52)
--- NOTE | 2018-10-26 09:20 | PDOC.PN ---
- Subjective Encounter Start Date: 10/26/18 Encounter Start Time: 08:30 Subjective: pt up in bed confused - Objective Resuscitation Status - Order Detail: 10/24/18 21:37 Resuscitation Status Routine Resuscitation Status: FULL: Full Resuscitation Vital Signs & Weight: Vital Signs (12 hours) Temp Pulse Resp BP Pulse Ox 10/26/18 07:45 95 10/26/18 07:42 86 12 10/26/18 04:01 98.6 F 95 20 133/84 96 10/26/18 03:41 94 L 10/25/18 23:54 95 10/25/18 21:47 94 10/25/18 21:29 98.7 F 94 16 151/78 H 97 Weight Weight 191 lb 6 oz I&O: 10/25/18 10/26/18 10/27/18 06:59 06:59 06:59 Intake Total 911 Output Total 600 2700 Balance -341 -3850 Result Diagrams: 10/26/18 07:35 10/26/18 07:35 Additional Labs: Accuchecks 10/26/18 10/25/18 10/25/18 05:39 20:10 16:55 POC Glucose 195 H 256 H 210 H 10/25/18 11:19 POC Glucose 236 H Phys Exam - Physical Examination Neck: no nodes, no JVD, supple, full ROM Respiratory: wheezing present rhonchi all over Cardiovascular: RRR, no significant murmur, no rub, gallop, irregular Gastrointestinal: soft, non-tender, no distention, positive bowel sounds Dx/Plan (1) SOB (shortness of breath) Code(s): R06.02 - SHORTNESS OF BREATH Status: Acute (2) Chronic kidney disease, stage 3 Code(s): N18.3 - CHRONIC KIDNEY DISEASE, STAGE 3 (MODERATE) Status: Chronic (3) Diabetes type 2, controlled Code(s): E11.9 - TYPE 2 DIABETES MELLITUS WITHOUT COMPLICATIONS Status: Chronic Qualifiers: (4) Dementia Code(s): F03.90 - UNSPECIFIED DEMENTIA WITHOUT BEHAVIORAL DISTURBANCE Status: Chronic - Plan continue duonebs/steroids -: worsening yaneth will decrease dose of lasix -: PT to evaluate pt -: will check a procalcitonin and cover with zosyn for now * . Review of Systems - Review of Systems Other: unable to obtain, pt is confused - Medications/Allergies Allergies/Adverse Reactions: Allergies Allergy/AdvReac Type Severity Reaction Status Date / Time No Known Allergies Allergy Verified 10/25/18 00:21 Medications: Current Medications Acetaminophen (Tylenol) 650 mg PO Q4H PRN PRN Reason: Headache/Fever/Mild Pain (1-3) Last Admin: 10/25/18 16:59 Dose: 650 mg Albuterol Sulfate (Albuterol Sulfate) 1.25 mg NEB Q8H PRN PRN Reason: Dyspnea Albuterol/Ipratropium (Duoneb) 3 ml NEB [id number] [facility] Last Admin: 10/26/18 07:42 Dose: 3 ml Alprazolam (Xanax) 0.5 mg PO DAILY [facility] Last Admin: 10/26/18 08:29 Dose: 0.5 mg Alprazolam (Xanax) 0.25 mg PO DAILY PRN PRN Reason: Anxiety/Agitation Amlodipine Besylate (Norvasc) 5 mg PO DAILY [facility] Last Admin: 10/26/18 08:29 Dose: 5 mg Bisacodyl (Dulcolax) 10 mg [place] DAILYPRN PRN PRN Reason: Constipation Carvedilol (Coreg) 12.5 mg PO BID-[facility] Last Admin: 10/26/18 08:29 Dose: 12.5 mg Clonidine (Catapres) 0.1 mg PO Q6H PRN PRN Reason: SBP > 180 Dextrose/Water (Dextrose 50%) 25 gm SLOW IVP PRN PRN PRN Reason: Hypoglycemia Furosemide (Lasix) 40 mg SLOW IVP DAILY [facility] Last Admin: 10/26/18 08:28 Dose: 40 mg Glipizide (Glucotrol) 5 mg PO DAILY-AC [facility] Last Admin: 10/26/18 08:29 Dose: 5 mg Glucagon (Glucagon) 1 mg IM PRN PRN PRN Reason: Hypoglycemia Heparin Sodium (Porcine) (Heparin) 5,000 units SC TID [facility] Last Admin: 10/26/18 08:30 Dose: 5,000 units Hydralazine HCl (Apresoline) 50 mg PO TID [facility] Last Admin: 10/26/18 08:29 Dose: 50 mg Dextrose/Water (D5w) 1,000 mls @ 0 mls/hr IV .Q0M PRN PRN Reason: Hypoglycemia Insulin Human Lispro (Humalog) 0 units SC .MILD SLIDING SCALE PRN PRN Reason: Mild Correctional Scale Last Admin: 10/25/18 17:28 Dose: 3 unit Methylprednisolone Sodium Succinate (Solu-Medrol) 40 mg IVP DAILY [facility] Last Admin: 10/26/18 08:29 Dose: 40 mg Ondansetron HCl (Zofran) 4 mg IVP Q6H PRN PRN Reason: Nausea/Vomiting Pantoprazole Sodium (Protonix) 20 mg PO DAILY [facility] Last Admin: 10/26/18 08:30 Dose: 20 mg Quetiapine Fumarate (Seroquel) 100 mg PO BID [facility] Last Admin: 10/26/18 08:30 Dose: 100 mg
[2018-10-26] MEDS: Piperacillin/Tazobactam 3.375 GM in Sodium Chloride 0.9% 100 ML IVPB SCH ×3 (11:10→23:41)
[2018-10-26] MEDS: HumaLOG 300 UNITS/3 ML VIAL SC PRN ×2 (12:07→17:40)
[2018-10-27] MEDS: Piperacillin/Tazobactam 3.375 GM in Sodium Chloride 0.9% 100 ML IVPB SCH ×3 (05:31→17:38)
[2018-10-27 06:15] LABS: Anion Gap 15 mmol/L (10-20); BUN (Urea Nitrogen) 31 mg/dL (8.4-25.7); Calc. Creatinine Clearance 29 mL/min (70-130); Calcium 8.9 mg/dL (7.8-10.44); Carbon Dioxide 24 mmol/L (23-31); Chloride 103 mmol/L (98-107); Estimated GFR-MDRD 28; Glucose 144 mg/dL (83-110); Sodium 138 mmol/L (136-145)
[2018-10-27 06:30] LABS: #Lymphocytes 1.4 thou/uL (1.20-3.40); #Monocytes 0.7 thou/uL (0.11-0.59); #Neutrophils 5.5 thou/uL (1.40-6.50); %Basophils 0.1 % (0.0-1.0); %Eosinophils 0.5 % (0.0-10.0); %Lymphocytes 18.4 % (21.0-51.0); %Monocytes 8.9 % (0.0-10.0); %Neutrophils 72.1 % (42.0-75.0); Mean Corpuscular HGB CONC 32.8 g/dL (32.0-36.0); Mean Corpuscular Hemoglobin 28.2 pg (27.0-31.0); Mean Platelet Volume 7.6 fL (7.4-10.4); Platelet Count 232 thou/uL (130-400); RBC Distribution Width 14.5 % (11.5-14.5); RBC Morphology Normal; White Blood Cell (WBC) Count 7.6 thou/uL (4.8-10.8)
[2018-10-27] MEDS ORDERED: Furosemide 20 MG/2 ML VIAL SLOW IVP SCH (09:00)
[2018-10-27] MEDS: HumaLOG 300 UNITS/3 ML VIAL SC PRN ×3 (09:39→17:32)
[2018-10-27] MEDS: hydrALAZINE 25 MG TAB PO SCH ×3 (09:41→21:08)
[2018-10-27] MEDS: Heparin 5,000 UNITS/ML VIAL SC SCH ×3 (09:41→21:10)
[2018-10-27] MEDS: glipiZIDE 5 MG TAB PO SCH (09:42)
[2018-10-27] MEDS: Amlodipine 5 MG TAB PO SCH (09:42)
[2018-10-27] MEDS: ALPRAZolam 0.5 MG TAB PO SCH (09:42)
[2018-10-27] MEDS: Carvedilol 6.25 MG TAB PO SCH ×2 (09:42→17:33)
[2018-10-27] MEDS ORDERED: Haloperidol Lactate 5 MG/ML VIAL IM SCH (18:15)
[2018-10-27] MEDS ORDERED: Ziprasidone 20 MG VIAL IM SCH (21:00)
[2018-10-27] MEDS: Sterile Water 10 ML VIAL FS SCH (21:30)
[2018-10-28] MEDS: Piperacillin/Tazobactam 3.375 GM in Sodium Chloride 0.9% 100 ML IVPB SCH (00:05)
[2018-10-28] MEDS ORDERED: Amoxicillin/Potassium Clav 600 mg/5 ml Oral Suspension PO SCH (00:45)
[2018-10-28] MEDS: Sterile Water 10 ML VIAL FS SCH (05:05)
[2018-10-28] MEDS: Ziprasidone 20 MG VIAL IM PRN ×2 (05:06→16:17)
[2018-10-28 06:23] LABS: Anion Gap 12 mmol/L (10-20); BUN (Urea Nitrogen) 31 mg/dL (8.4-25.7); Calc. Creatinine Clearance 30 mL/min (70-130); Carbon Dioxide 25 mmol/L (23-31); Chloride 106 mmol/L (98-107); Estimated GFR-MDRD 31; Glucose 153 mg/dL (83-110); Potassium 3.9 mmol/L (3.5-5.1); Sodium 139 mmol/L (136-145)
[2018-10-28] MEDS: Carvedilol 6.25 MG TAB PO SCH ×2 (09:22→17:00)
[2018-10-28] MEDS: ALPRAZolam 0.5 MG TAB PO SCH (09:22)
[2018-10-28] MEDS: Amoxicillin/Potassium Clav 600 mg/5 ml Oral Suspension PO SCH ×2 (09:22→22:43)
[2018-10-28] MEDS: predniSONE 20 MG TAB PO SCH (09:22)
[2018-10-28] MEDS: glipiZIDE 5 MG TAB PO SCH (09:24)
[2018-10-28] MEDS: Amlodipine 5 MG TAB PO SCH (09:24)
[2018-10-28] MEDS: hydrALAZINE 25 MG TAB PO SCH ×3 (09:44→22:43)
[2018-10-28] MEDS: Heparin 5,000 UNITS/ML VIAL SC SCH ×2 (12:46→14:05)
--- NOTE | 2018-10-28 14:53 | PDOC.PN ---
- Subjective Encounter Start Date: 10/28/18 Encounter Start Time: 10:15 Subjective: pt was very agitated last night requiring - Objective Resuscitation Status - Order Detail: 10/24/18 21:37 Resuscitation Status Routine Resuscitation Status: FULL: Full Resuscitation Vital Signs & Weight: Vital Signs (12 hours) Temp Pulse Pulse Pulse Resp BP BP 10/28/18 12:00 97.9 F 65 18 10/28/18 09:59 87 69 131/88 10/28/18 09:53 76 16 10/28/18 09:44 97 162/65 H 10/28/18 09:24 97 10/28/18 09:22 144/67 H 10/28/18 08:14 97.9 F 97 16 10/28/18 03:55 97.3 F L 73 17 BP BP BP Pulse Ox 10/28/18 12:00 161/74 H 97 10/28/18 09:59 123/68 10/28/18 09:53 95 10/28/18 09:44 10/28/18 09:24 10/28/18 09:22 10/28/18 08:14 162/65 H 94 L 10/28/18 03:55 130/74 94 L Weight Weight 182 lb 9.6 oz I&O: 10/27/18 10/28/18 10/29/18 06:59 06:59 06:59 Intake Total 1200 900 120 Output Total 3900 4050 Balance -2700 -3150 120 Result Diagrams: 10/27/18 05:23 10/28/18 05:36 Additional Labs: Accuchecks 10/28/18 10/27/18 10/27/18 05:25 20:34 17:04 POC Glucose 150 H 239 H 320 H Phys Exam - Physical Examination Neck: no nodes, no JVD, supple, full ROM Respiratory: wheezing present Cardiovascular: RRR, no significant murmur, no rub, gallop, irregular Gastrointestinal: soft, non-tender, no distention, positive bowel sounds Musculoskeletal: no edema, pulses present, edema present Dx/Plan (1) SOB (shortness of breath) Code(s): R06.02 - SHORTNESS OF BREATH Status: Acute (2) Chronic kidney disease, stage 3 Code(s): N18.3 - CHRONIC KIDNEY DISEASE, STAGE 3 (MODERATE) Status: Chronic (3) Diabetes type 2, controlled Code(s): E11.9 - TYPE 2 DIABETES MELLITUS WITHOUT COMPLICATIONS Status: Chronic Qualifiers: (4) Dementia Code(s): F03.90 - UNSPECIFIED DEMENTIA WITHOUT BEHAVIORAL DISTURBANCE Status: Chronic - Plan creatinine improving -: pt was given geodon last night -: ef is 60-65% -: possible discharge in am back to facility * . Review of Systems - Review of Systems Other: pt asleep - Medications/Allergies Allergies/Adverse Reactions: Allergies Allergy/AdvReac Type Severity Reaction Status Date / Time No Known Allergies Allergy Verified 10/25/18 00:21 Medications: Current Medications Acetaminophen (Tylenol) 650 mg PO Q4H PRN PRN Reason: Headache/Fever/Mild Pain (1-3) Last Admin: 10/25/18 16:59 Dose: 650 mg Albuterol Sulfate (Albuterol Sulfate) 1.25 mg NEB Q8H PRN PRN Reason: Dyspnea Albuterol/Ipratropium (Duoneb) 3 ml NEB [id number] [facility] Last Admin: 10/28/18 13:39 Dose: Not Given Alprazolam (Xanax) 0.5 mg PO DAILY [facility] Last Admin: 10/28/18 09:22 Dose: 0.5 mg Alprazolam (Xanax) 0.25 mg PO DAILY PRN PRN Reason: Anxiety/Agitation Amlodipine Besylate (Norvasc) 5 mg PO DAILY [facility] Last Admin: 10/28/18 09:24 Dose: 5 mg Amoxicillin/Clavulanate Potassium (Augmentin 600mg/5ml Oral Susp) 600 mg PO BID [facility] Last Admin: 10/28/18 09:22 Dose: 600 mg Bisacodyl (Dulcolax) 10 mg [place] DAILYPRN PRN PRN Reason: Constipation Carvedilol (Coreg) 12.5 mg PO BID-WM [facility] Last Admin: 10/28/18 09:22 Dose: 12.5 mg Clonidine (Catapres) 0.1 mg PO Q6H PRN PRN Reason: SBP > 180 Dextrose/Water (Dextrose 50%) 25 gm SLOW IVP PRN PRN PRN Reason: Hypoglycemia Glipizide (Glucotrol) 5 mg PO DAILY-AC [facility] Last Admin: 10/28/18 09:24 Dose: 5 mg Glucagon (Glucagon) 1 mg IM PRN PRN PRN Reason: Hypoglycemia Heparin Sodium (Porcine) (Heparin) 5,000 units SC TID [facility] Last Admin: 10/28/18 12:46 Dose: Not Given Hydralazine HCl (Apresoline) 50 mg PO TID [facility] Last Admin: 10/28/18 09:44 Dose: 50 mg Dextrose/Water (D5w) 1,000 mls @ 0 mls/hr IV .Q0M PRN PRN Reason: Hypoglycemia Insulin Human Lispro (Humalog) 0 units SC .MILD SLIDING SCALE PRN PRN Reason: Mild Correctional Scale Last Admin: 10/27/18 17:32 Dose: 5 unit Ondansetron HCl (Zofran) 4 mg IVP Q6H PRN PRN Reason: Nausea/Vomiting Pantoprazole Sodium (Protonix) 20 mg PO DAILY [facility] Last Admin: 10/28/18 09:22 Dose: 20 mg Prednisone (Prednisone) 20 mg PO QAM-WM [facility] Last Admin: 10/28/18 09:22 Dose: 20 mg Quetiapine Fumarate (Seroquel) 100 mg PO BID [facility] Last Admin: 10/28/18 09:22 Dose: 100 mg Sodium Chloride (Flush - Normal Saline) 10 ml IVF Q12HR [facility] Last Admin: 10/28/18 09:47 Dose: 10 ml Sodium Chloride (Flush - Normal Saline) 10 ml IVF PRN PRN PRN Reason: Saline Flush Ziprasidone (Geodon) 10 mg IM Q4H PRN PRN Reason: Agitation Last Admin: 10/28/18 05:06 Dose: 10 mg
--- NOTE | 2018-10-28 15:36 | PDOC.PN ---
- Subjective Encounter Start Date: 10/27/18 Encounter Start Time: 10:00 Subjective: pt up in bed no complains, at bedside - Objective Resuscitation Status - Order Detail: 10/24/18 21:37 Resuscitation Status Routine Resuscitation Status: FULL: Full Resuscitation Vital Signs & Weight: Vital Signs (12 hours) Temp Pulse Pulse Pulse Resp BP BP 10/28/18 12:00 97.9 F 65 18 10/28/18 09:59 87 69 131/88 10/28/18 09:53 76 16 10/28/18 09:44 97 162/65 H 10/28/18 09:24 97 10/28/18 09:22 144/67 H 10/28/18 08:14 97.9 F 97 16 10/28/18 03:55 97.3 F L 73 17 BP BP BP Pulse Ox 10/28/18 12:00 161/74 H 97 10/28/18 09:59 123/68 10/28/18 09:53 95 10/28/18 09:44 10/28/18 09:24 10/28/18 09:22 10/28/18 08:14 162/65 H 94 L 10/28/18 03:55 130/74 94 L Weight Weight 182 lb 9.6 oz I&O: 10/27/18 10/28/18 10/29/18 06:59 06:59 06:59 Intake Total 1200 900 120 Output Total 3900 4050 Balance -2700 -3150 120 Result Diagrams: 10/27/18 05:23 10/28/18 05:36 Additional Labs: Accuchecks 10/28/18 10/27/18 10/27/18 05:25 20:34 17:04 POC Glucose 150 H 239 H 320 H Phys Exam - Physical Examination Neck: no nodes, no JVD, supple, full ROM Respiratory: wheezing present Cardiovascular: RRR, no significant murmur, no rub, gallop, irregular Gastrointestinal: soft, non-tender, no distention, positive bowel sounds Dx/Plan (1) SOB (shortness of breath) Code(s): R06.02 - SHORTNESS OF BREATH Status: Acute (2) Chronic kidney disease, stage 3 Code(s): N18.3 - CHRONIC KIDNEY DISEASE, STAGE 3 (MODERATE) Status: Chronic (3) Diabetes type 2, controlled Code(s): E11.9 - TYPE 2 DIABETES MELLITUS WITHOUT COMPLICATIONS Status: Chronic Qualifiers: (4) Dementia Code(s): F03.90 - UNSPECIFIED DEMENTIA WITHOUT BEHAVIORAL DISTURBANCE Status: Chronic - Plan pt's creatinine worsened today will hold lasix for now -: if creatinine stable will discharge in am * . Review of Systems - Review of Systems Respiratory: negative: Cough, Dry, Shortness of Breath, Hemoptysis, SOB with Excertion, Pleuritic Pain, Sputum, Wheezing Cardiovascular: negative: chest pain, palpitations, orthopnea, paroxysmal nocturnal dyspnea, edema, light headedness, other Gastrointestinal: negative: Nausea, Vomiting, Abdominal Pain, Diarrhea, Constipation, Melena, Hematochezia, Other Genitourinary: negative: Dysuria, Frequency, Incontinence, Hematuria, Retention , Other - Medications/Allergies Allergies/Adverse Reactions: Allergies Allergy/AdvReac Type Severity Reaction Status Date / Time No Known Allergies Allergy Verified 10/25/18 00:21 Medications: Current Medications Acetaminophen (Tylenol) 650 mg PO Q4H PRN PRN Reason: Headache/Fever/Mild Pain (1-3) Last Admin: 10/25/18 16:59 Dose: 650 mg Albuterol Sulfate (Albuterol Sulfate) 1.25 mg NEB Q8H PRN PRN Reason: Dyspnea Albuterol/Ipratropium (Duoneb) 3 ml NEB [id number] [facility] Last Admin: 10/28/18 13:39 Dose: Not Given Alprazolam (Xanax) 0.5 mg PO DAILY [facility] Last Admin: 10/28/18 09:22 Dose: 0.5 mg Alprazolam (Xanax) 0.25 mg PO DAILY PRN PRN Reason: Anxiety/Agitation Amlodipine Besylate (Norvasc) 5 mg PO DAILY [facility] Last Admin: 10/28/18 09:24 Dose: 5 mg Amoxicillin/Clavulanate Potassium (Augmentin 600mg/5ml Oral Susp) 600 mg PO BID [facility] Last Admin: 10/28/18 09:22 Dose: 600 mg Bisacodyl (Dulcolax) 10 mg [place] DAILYPRN PRN PRN Reason: Constipation Carvedilol (Coreg) 12.5 mg PO BID-[facility] Last Admin: 10/28/18 09:22 Dose: 12.5 mg Clonidine (Catapres) 0.1 mg PO Q6H PRN PRN Reason: SBP > 180 Dextrose/Water (Dextrose 50%) 25 gm SLOW IVP PRN PRN PRN Reason: Hypoglycemia Glipizide (Glucotrol) 5 mg PO DAILY-AC [facility] Last Admin: 10/28/18 09:24 Dose: 5 mg Glucagon (Glucagon) 1 mg IM PRN PRN PRN Reason: Hypoglycemia Heparin Sodium (Porcine) (Heparin) 5,000 units SC TID [facility] Last Admin: 10/28/18 12:46 Dose: Not Given Hydralazine HCl (Apresoline) 50 mg PO TID [facility] Last Admin: 10/28/18 09:44 Dose: 50 mg Dextrose/Water (D5w) 1,000 mls @ 0 mls/hr IV .Q0M PRN PRN Reason: Hypoglycemia Insulin Human Lispro (Humalog) 0 units SC .MILD SLIDING SCALE PRN PRN Reason: Mild Correctional Scale Last Admin: 10/27/18 17:32 Dose: 5 unit Ondansetron HCl (Zofran) 4 mg IVP Q6H PRN PRN Reason: Nausea/Vomiting Pantoprazole Sodium (Protonix) 20 mg PO DAILY [facility] Last Admin: 10/28/18 09:22 Dose: 20 mg Prednisone (Prednisone) 20 mg PO QAM-[facility] Last Admin: 10/28/18 09:22 Dose: 20 mg Quetiapine Fumarate (Seroquel) 100 mg PO BID [facility] Last Admin: 10/28/18 09:22 Dose: 100 mg Sodium Chloride (Flush - Normal Saline) 10 ml IVF Q12HR [facility] Last Admin: 10/28/18 09:47 Dose: 10 ml Sodium Chloride (Flush - Normal Saline) 10 ml IVF PRN PRN PRN Reason: Saline Flush Ziprasidone (Geodon) 10 mg IM Q4H PRN PRN Reason: Agitation Last Admin: 10/28/18 05:06 Dose: 10 mg
[2018-10-29] MEDS: Ziprasidone 20 MG VIAL IM PRN (05:27)
[2018-10-29 08:02] VITALS: TEMP 98.1
[2018-10-29 08:30] LABS: Anion Gap 15 mmol/L (10-20); BUN (Urea Nitrogen) 28 mg/dL (8.4-25.7); Calc. Creatinine Clearance 35 mL/min (70-130); Calcium 8.9 mg/dL (7.8-10.44); Carbon Dioxide 20 mmol/L (23-31); Chloride 106 mmol/L (98-107); Estimated GFR-MDRD 36; Glucose 145 mg/dL (83-110); Potassium 4.4 mmol/L (3.5-5.1); Sodium 137 mmol/L (136-145)
[2018-10-29] MEDS: ALPRAZolam 0.5 MG TAB PO SCH (09:11)
[2018-10-29] MEDS: Amoxicillin/Potassium Clav 600 mg/5 ml Oral Suspension PO SCH (09:11)
[2018-10-29] MEDS: glipiZIDE 5 MG TAB PO SCH (09:11)
[2018-10-29] MEDS: Carvedilol 6.25 MG TAB PO SCH ×2 (09:13→15:45)
[2018-10-29] MEDS: hydrALAZINE 25 MG TAB PO SCH ×2 (09:13→15:45)
[2018-10-29] MEDS: Amlodipine 5 MG TAB PO SCH (09:14)
[2018-10-29] MEDS: predniSONE 20 MG TAB PO SCH (09:14)
--- NOTE | 2018-10-29 10:04 | PQF ---
CLINICAL DOCUMENTATION IMPROVEMENT CLARIFICATION FORM: ICD-10 Updated PLEASE DO AN ADDENDUM TO THE PROGRESS NOTE WITH ANY DOCUMENTATION UPDATES OR ADDITIONS AND CARRY THROUGH TO DC SUMMARY. THANK YOU. DATE: 10/29/18 ATTN: Dr. Roach Please exercise your independent, professional judgment in responding to the clarification form. Clinical indicators are provided on the bottom of this form for your review Please check appropriate box(s): HEART FAILURE: A. TYPE: [ ] Systolic / HFrEF [ x] Diastolic / HFpEF [ ] Combined Systolic / Diastolic B. ACUITY [ ] Acute [ x ] Acute on Chronic [ ] Chronic [ ] Other diagnosis [ ] Unable to determine In addition, please specify: Present on Admission (POA): [x ] Yes [ ] No [ ] Unable to determine For continuity of documentation, please document condition throughout progress notes and discharge summary. Thank You. CLINICAL INDICATORS - SIGNS / SYMPTOMS / LABS H&P 10/24: Possible congestive heart failure exacerbation with findings in the chest x-ray that are pointing to CHF, BNP 716, we will place the pt on Lasix. ECHO 10/26: EF visually estimated at 60-65% . Diastolic Dysfunction PN 10/28: SOB. Acute CKD stage 3 RISKS: H&P 10/24: 88 yo. The pt has been reported to have hx of TIA, subdural hematoma, & CHF. Hx of CAD, DM 2, HTN. 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 Hx of underlying Dementia. TREATMENT: Order 10/25: Coreg 12.5 mg po BID - WM Order 10/24 to 10/26: Lasix 40 mg slow IVP daily. Order 10/26 to 10/27: Lasix 20 mg slow IVP daily. Thank you, Alana (This form is maintained as a part of the permanent medical record) 2015 [employer]. All Rights Reserved Alana Hicks RN, BSN [email or web address] Office: [phone] [facility]
[2018-10-29] MEDS: HumaLOG 300 UNITS/3 ML VIAL SC PRN (15:45)
--- NOTE | 2018-10-29 15:53 | EKG ---
Test Reason : SOB Blood Pressure : / mmHG Vent. Rate : 080 BPM Atrial Rate : 098 BPM P-R Int : 000 ms QRS Dur : 080 ms QT Int : 394 ms P-R-T Axes : 000 024 106 degrees QTc Int : 454 ms Atrial fibrillation with premature ventricular or aberrantly conducted complexes Low voltage QRS Abnormal QRS-T angle, consider primary T wave abnormality Abnormal ECG Confirmed by RAQUEL CLAYTON ([id number]), acquisitions editor MADAI WARREN ([id number]) on 10/29/2018 3:52:56 PM Referred By: Confirmed By:RAQUEL CLAYTON
[2018-10-29 16:01] VITALS: BP 145/89
== END 2018-10-29 17:10 | DRG 682 ==
LOC: ERS 19:19 → 2NO 20:31
PROVIDERS: ADMIT Hospitalist; ATTEND Hospitalist
DX: N17.9 Acute kidney failure, unspecified (principal); I50.33 Acute on chronic diastolic (congestive) heart failure; I13.0 Hypertensive heart and chronic kidney disease with heart failure and stage 1 through stage 4 chronic kidney disease, or unspecified chronic kidney disease; N18.3 Chronic kidney disease, stage 3 (moderate); E11.22 Type 2 diabetes mellitus with diabetic chronic kidney disease; M19.90 Unspecified osteoarthritis, unspecified site; Z86.73 Personal history of transient ischemic attack (TIA), and cerebral infarction without residual deficits; E11.51 Type 2 diabetes mellitus with diabetic peripheral angiopathy without gangrene; F03.90 Unspecified dementia, unspecified severity, without behavioral disturbance, psychotic disturbance, mood disturbance, and anxiety
CPT/HCPCS: 36415; 36416; 71045; 80048; 80053; 83880; 84145; 84484; 85025; 87633; 87798; 90471; 90670; 93005; 93306; 94640; 96374; A4216; G0009; G8978-GP-CK; G8979-GP-CJ; J1200; J1630; J1644; J1940; J2060; J2543; J2920; J3486; J7050; J7506; J7620

== ENCOUNTER 2018-11-23 18:45 | Inpatient (IN) | payer MEDICARE, OTHER ==
[2018-11-23] MEDS ORDERED: Acetaminophen 500 MG TAB ONE ×2 (19:34→19:37)
[2018-11-23] MEDS ORDERED: cefTRIAXone\\ROCEPHIN 2 GM VIAL ONE (19:34)
[2018-11-23 19:38] LABS: #Lymphocytes 0.6 thou/uL (1.20-3.40); #Monocytes 0.5 thou/uL (0.11-0.59); #Neutrophils 4.4 thou/uL (1.40-6.50); %Eosinophils 0.6 % (0.0-10.0); %Lymphocytes 10.7 % (21.0-51.0); %Monocytes 8.3 % (0.0-10.0); %Neutrophils 80.4 % (42.0-75.0); Hemoglobin 10.4 g/dL (14.0-18.0); Mean Corpuscular HGB CONC 32.9 g/dL (32.0-36.0); Mean Corpuscular Hemoglobin 28.3 pg (27.0-31.0); Mean Corpuscular Volume 85.9 fL (78.0-98.0); Mean Platelet Volume 7.8 fL (7.4-10.4); Platelet Count 198 thou/uL (130-400); RBC Distribution Width 14.6 % (11.5-14.5); Red Blood Cell (RBC) Count 3.66 mill/uL (4.70-6.10); White Blood Cell (WBC) Count 5.5 thou/uL (4.8-10.8)
[2018-11-23 19:59] LABS: ALT (SGPT) 22 U/L (8-55); AST (SGOT) 23 U/L (5-34); Albumin 3.8 g/dL (3.4-4.8); Alkaline Phosphatase 109 U/L (40-150); Anion Gap 16 mmol/L (10-20); BUN (Urea Nitrogen) 26 mg/dL (8.4-25.7); Bilirubin, Total 1.4 mg/dL (0.2-1.2); Calc. Creatinine Clearance 0 mL/min (70-130); Calcium 8.8 mg/dL (7.8-10.44); Carbon Dioxide 17 mmol/L (23-31); Chloride 108 mmol/L (98-107); Estimated GFR-MDRD 32; Globulin 3.3 g/dL (2.4-3.5); Glucose 204 mg/dL (83-110); Potassium 4.4 mmol/L (3.5-5.1); Protein, Total 7.1 g/dL (5.8-8.1); Sodium 137 mmol/L (136-145)
--- NOTE | 2018-11-23 20:07 | RAD ---
FRONTAL VIEW CHEST: INDICATIONS: Short of breath. COMPARISON: 10/24/2018 FINDINGS: There is enlargement of the cardiac silhouette with bilateral vascular congestion and interstitial pr ominence throughout each lung. A mild degree of pleural fluid is not excluded, bilaterally. The chest is otherwise similar appearing. IMPRESSION: Findings favor decompensated congestive heart failure. Correlate clinically. Recommend imaging followup to confirm resolution. POS: [facility]
[2018-11-23] MEDS ORDERED: Vancomycin HCl 1.25 GM in Sodium Chloride 0.9% 250 ML 250 ML IVPB SCH (20:15)
[2018-11-23] MEDS ORDERED: Furosemide 40 MG/4 ML VIAL ONE (21:00)
[2018-11-23] MEDS ORDERED: Acetaminophen 500 MG TAB PO PRN (23:32)
[2018-11-23] MEDS ORDERED: Benzonatate 100 MG CAP PO PRN (23:32)
[2018-11-23] MEDS ORDERED: Ondansetron PF 4 MG/2 ML Vial IVP PRN (23:32)
[2018-11-23] MEDS ORDERED: Diabetic Tussin 200 MG/10 ML UDCUP PO PRN (23:32)
[2018-11-23] MEDS ORDERED: Dextrose 50% Abboject 50 ML SYRINGE SLOW IVP PRN (23:32)
[2018-11-23] MEDS ORDERED: Dextrose 5% in Water 1,000 ML IV PRN (23:32)
[2018-11-23] MEDS ORDERED: Ondansetron ODT 4 MG TAB PO PRN (23:32)
[2018-11-23] MEDS ORDERED: HumaLOG 300 UNITS/3 ML VIAL SC PRN (23:32)
[2018-11-24] MEDS ORDERED: ALPRAZolam 0.25 MG TAB ONE (00:03)
[2018-11-24] MEDS ORDERED: Water For Inject, Bacteriostat 30 ML ONE (00:04)
[2018-11-24] MEDS ORDERED: Haloperidol Lactate 5 MG/ML VIAL ONE (00:28)
[2018-11-24] MEDS: Azithromycin 500 MG in Sodium Chloride 0.9% 250 ML 250 ML IVPB SCH (01:57)
[2018-11-24] MEDS: Cefepime 2 GM in Sodium Chloride 0.9% 100 ML IVPB SCH ×2 (03:48→12:50)
--- NOTE | 2018-11-24 04:25 | HP ---
PRIMARY CARE PROVIDER: Devin Coombs MD. CHIEF COMPLAINT: Fever and shortness of breath. HISTORY OF PRESENT ILLNESS: This is an 88-year-old male, who presents to [facility] Emergency Department and transferred from [facility] where the patient is a current resident due to advanced Alzheimer's dementia. The patient apparently was noted with increasing shortness of breath as well as fever and concern for pneumonia. The patient was recently admitted to [facility] from 10/24 through 10/29/2018 and treated for acute diastolic heart failure. The patient was placed on oxygen, apparently 2 L/minute by nasal cannula, which he has been using continuously. Per electronic medical record report and discussions with the ER attending, the patient was noted with a cough that was productive and fever. In the emergency room, the patient was noted with a rectal temperature of a 103 degrees Fahrenheit with chest imaging showing increased infiltrates and edema in bilateral lung carter. The patient received IV Lasix 20 mg x1 dose in addition to vancomycin, Zosyn, Rocephin, intravenous normal saline, and Tylenol. The patient is unable to provide any further history due to advanced dementia. PAST MEDICAL HISTORY: 1. Alzheimer's dementia, advanced. 2. Chronic diastolic congestive heart failure with ejection fraction of 60% to 65%. 3. Ischemic CVA. 4. Diabetes mellitus type 2. 5. Coronary artery disease. 6. Hypertension. 7. Peripheral vascular disease with lower extremity bypass. 8. Osteoarthritis. 9. Chronic hypoxic respiratory failure. 10. Chronic kidney disease, stage 3. PAST SURGICAL HISTORY: Status post lower extremity bypass surgery. CURRENT MEDICATIONS: 1. Albuterol sulfate 1.25 mg nebulized q.8 hours p.r.n. 2. Alprazolam 0.5 mg p.o. daily and 0.25 mg p.o. p.r.n. anxiety and restlessness. 3. Clonidine 0.1 mg p.o. q.6 hours as needed. 4. Glipizide 5 mg p.o. daily. 5. Regular insulin sliding scale with meals. 6. Protonix 20 mg p.o. daily. 7. Seroquel 100 mg p.o. b.i.d. 8. Norvasc 5 mg p.o. daily. 9. Coreg 12.5 mg p.o. b.i.d. 10. DuoNeb 3 mL nebulized q.4-6 hours p.r.n. ALLERGIES: NO KNOWN DRUG ALLERGIES. FAMILY HISTORY: No inheritable diseases per family report. SOCIAL HISTORY: The patient is , resides in [facility]. No current alcohol, tobacco, or illicit drug use. Former tobacco use. REVIEW OF SYSTEMS: Unobtainable due to patient's advanced dementia. PHYSICAL EXAMINATION: VITAL SIGNS: Currently, blood pressure 126/69, pulse 94, respiratory rate 18. Temperature 103 degrees Fahrenheit rectally, currently 99 degrees orally. O2 sat 98% on 4 L/minute by nasal cannula. GENERAL APPEARANCE: This is an 88-year-old male, agitated, mumbling, confused, in mild distress. HEENT: Pupils are equal, round, reactive to light and accommodation. Extraocular muscles are intact. No scleral icterus. No conjunctival injection. Nares patent. OP is clear. Oral mucosa dry appearing. NECK: Supple. No cervical adenopathy. Mild JVD noted. No palpable mass. No meningeal signs appreciated. CHEST: Coarse breath sounds in bilateral lung carter with diminished sounds in the bases. Crackles noted. CARDIOVASCULAR: S1 and S2 without noted murmur, rub, or gallop. ABDOMEN: Rounded, soft, nontender, and nondistended. Bowel sounds are positive in all four quadrants. There is no hepatosplenomegaly. No abdominal bruits. No rebound or guarding appreciated. Mild pitting edema in the lower abdomen noted. EXTREMITIES: Warm and dry with fair turgor. Pitting edema to the proximal shins bilaterally. Pulses are palpable distally at the dorsalis pedis, posterior tibial, and popliteal arteries bilaterally. Capillary refill less than 2 seconds. NEUROLOGIC: Cranial nerves 2 through 12 are grossly intact. Alert and oriented x1. Agitated. Moves all extremities. PERTINENT LAB AND X-RAY FINDINGS: Sodium 137, potassium 4.4, chloride 108, CO2 of 27, BUN 26, creatinine 1.99 with estimated GFR of 32, glucose 204, lactic acid level 1.7, calcium 8.8, total bilirubin 1.4. LFTs within normal limits. BNP 971, previously noted 760 on 10/24/2018. Troponin I negative x1. CBC showed a white blood cell count of 5.5, hemoglobin 10.4, hematocrit 31.4, platelet count 198 with 80% neutrophils. Influenza A and B antigen dated 11/23/2018 negative. Portable chest x-ray dated 11/23/2018 showed prominent bilateral vascular congestion with interstitial prominence bilaterally, acute infiltrate cannot be ruled out. Telemetry monitoring shows sinus tachycardia with heart rates in the low 100s. ASSESSMENT AND PLAN: 1. Healthcare-associated pneumonia. The patient will be admitted to the telemetry unit. Suspect gram-positive cocci. We will continue cefepime 2 g IV q.12 hours with additional Zithromax 500 mg IV daily. Consider additional vancomycin if no clinical improvement in the next 24 hours. We will continue bronchodilator therapy with DuoNeb and add additional Solu-Medrol 40 mg IV q.6 hours. 2. Acute on chronic hypoxic respiratory failure. We will continue oxygen supplementation to maintain O2 saturation greater than or equal to 90%. Continue bronchodilator therapy with DuoNeb. Add Solu-Medrol 40 mg IV q.6 hours. Mucolytics p.r.n. 3. Acute on chronic diastolic congestive heart failure. We will continue Lasix 40 mg IV b.i.d. Continue to monitor daily weights and intake and output. Recent 2D echocardiogram performed on 10/26/2018 showed preserved ejection fraction of 60% to 65%. 4. Diabetes mellitus type 2. Insulin sliding scale for reflexive coverage. ADA diet when tolerating p.o. Serial Accu-Cheks before meals and at bedtime. 5. Chronic kidney disease, stage 3. Avoid nephrotoxic agents and limit contrast exposure. Serial creatinine monitoring. 6. Alzheimer's dementia. Appears advanced. The patient currently in a supervised medical setting at [facility]. We will continue supportive management and monitor clinically. Anxiolytics p.r.n. 7. Prophylaxis. SCDs while in bed. Pepcid 20 mg p.o. b.i.d. 8. Code status is full. Surrogate medical decision maker is patient's spouse. Job ID: [id number]
[2018-11-24 04:27] LABS: Anion Gap 18 mmol/L (10-20); BUN (Urea Nitrogen) 27 mg/dL (8.4-25.7); Calc. Creatinine Clearance 0 mL/min (70-130); Calcium 8.5 mg/dL (7.8-10.44); Carbon Dioxide 16 mmol/L (23-31); Chloride 109 mmol/L (98-107); Estimated GFR-MDRD 32; Glucose 200 mg/dL (83-110); Potassium 4.5 mmol/L (3.5-5.1); Sodium 138 mmol/L (136-145)
[2018-11-24 05:16] LABS: Band 21 % (5-11); Lymphocytes 9 % (21-51); MDiff Complete? YES; Mean Corpuscular HGB CONC 32.3 g/dL (32.0-36.0); Mean Corpuscular Hemoglobin 27.6 pg (27.0-31.0); Mean Corpuscular Volume 85.5 fL (78.0-98.0); Mean Platelet Volume 7.7 fL (7.4-10.4); Neutrophil 70 % (42-75); Platelet Count 183 thou/uL (130-400); RBC Distribution Width 14.8 % (11.5-14.5); Red Blood Cell (RBC) Count 3.64 mill/uL (4.70-6.10); White Blood Cell (WBC) Count 4.7 thou/uL (4.8-10.8)
[2018-11-24] MEDS ORDERED: Furosemide 40 MG/4 ML VIAL ONE ×2 (05:23→13:55)
[2018-11-24] MEDS ORDERED: Lorazepam 2 MG/ML VIAL ONE (05:45)
[2018-11-24] MEDS: Furosemide 40 MG/4 ML VIAL SLOW IVP SCH ×2 (06:00→13:58)
[2018-11-24] MEDS ORDERED: Insulin Regular 300 UNITS/3 ML VIAL ONE (08:19)
[2018-11-24] MEDS: HumaLOG 300 UNITS/3 ML VIAL SC PRN ×3 (08:20→17:53)
[2018-11-24] MEDS: Carvedilol 6.25 MG TAB PO SCH ×2 (08:30→17:37)
[2018-11-24] MEDS ORDERED: Famotidine 20 MG TAB ONE (08:35)
[2018-11-24] MEDS ORDERED: ALPRAZolam 0.5 MG TAB ONE (08:35)
[2018-11-24] MEDS ORDERED: hydrALAZINE 20 MG/ML VIAL ONE (08:36)
[2018-11-24] MEDS: Famotidine 20 MG TAB PO SCH (09:02)
[2018-11-24] MEDS: ALPRAZolam 0.5 MG TAB PO SCH (09:02)
[2018-11-24] MEDS: hydrALAZINE 25 MG TAB PO SCH ×3 (09:03→21:58)
--- NOTE | 2018-11-24 11:19 | PDOC.PN ---
- Subjective Encounter Start Date: 11/24/18 Encounter Start Time: 11:17 Subjective: confused , coughing - Objective Resuscitation Status - Order Detail: 11/23/18 23:21 Resuscitation Status Routine Resuscitation Status: FULL: Full Resuscitation MAR Reviewed: Yes Vital Signs & Weight: Vital Signs (12 hours) Temp Pulse Resp BP BP Pulse Ox 11/24/18 11:04 98.4 F 86 18 119/64 93 L 11/24/18 10:39 85 16 99 11/24/18 09:03 100 158/118 H 11/24/18 08:30 158/118 H 11/24/18 07:49 100 18 158/118 H 11/24/18 04:37 84 16 100 11/24/18 04:00 96.8 F L 91 16 158/110 H 99 I&O: 11/23/18 11/24/18 11/25/18 06:59 06:59 06:59 Intake Total 350 Balance 350 Result Diagrams: 11/24/18 04:00 11/24/18 04:00 Additional Labs: Accuchecks 11/24/18 06:30 POC Glucose 226 H Phys Exam - Physical Examination Neck: no JVD bilat coarse BS Cardiovascular: RRR, no significant murmur Gastrointestinal: soft, positive bowel sounds Musculoskeletal: no edema Dx/Plan (1) Pneumonia Code(s): J18.9 - PNEUMONIA, UNSPECIFIED ORGANISM Status: Acute Qualifiers: Pneumonia type: due to unspecified organism Laterality: unspecified laterality Lung location: unspecified part of lung Qualified Code(s): J18.9 - Pneumonia, unspecified organism Comment: probably strep pneumonia (2) Acute on chronic diastolic (congestive) heart failure Code(s): I50.33 - ACUTE ON CHRONIC DIASTOLIC (CONGESTIVE) HEART FAILURE Status : Acute (3) CAD (coronary artery disease) Code(s): I25.10 - ATHSCL HEART DISEASE OF [place] CORONARY ARTERY W/O ANG PCTRS Status: Chronic Qualifiers: Coronary Disease-Associated Artery/Lesion type: [place] artery [place] vs. transplanted heart: [place] heart Associated angina: without angina Qualified Code(s): I25.10 - Atherosclerotic heart disease of [place] coronary artery without angina pectoris (4) Chronic kidney disease, stage 3 Code(s): N18.3 - CHRONIC KIDNEY DISEASE, STAGE 3 (MODERATE) Status: Chronic (5) Dementia Code(s): F03.90 - UNSPECIFIED DEMENTIA WITHOUT BEHAVIORAL DISTURBANCE Status: Chronic Qualifiers: Dementia type: Alzheimer's disease Alzheimer's disease onset: unspecified onset Dementia behavioral disturbance: with behavioral disturbance Qualified Code(s): G30.9 - Alzheimer's disease, unspecified; F02.81 - Dementia in other diseases classified elsewhere with behavioral disturbance (6) Diabetes type 2, controlled Code(s): E11.9 - TYPE 2 DIABETES MELLITUS WITHOUT COMPLICATIONS Status: Chronic Qualifiers: Diabetes mellitus fpc insulin use: without superintendent container terminal use Diabetes mellitus complication status: with kidney complications Diabetes mellitus complication detail: with chronic kidney disease Chronic kidney disease stage : stage 3 (moderate) Qualified Code(s): E11.22 - Type 2 diabetes mellitus with diabetic chronic kidney disease; N18.3 - Chronic kidney disease, stage 3 ( moderate) (7) Hypertension Code(s): I10 - ESSENTIAL (PRIMARY) HYPERTENSION Status: Chronic Qualifiers: Hypertension type: essential hypertension - Plan cont iv antibx, await C&S results -: cont iv diuresis * .
[2018-11-24] MEDS ORDERED: Cefepime 2 GM VIAL ONE (12:35)
[2018-11-24] MEDS: ALPRAZolam 0.25 MG TAB PO PRN (21:59)
[2018-11-25] MEDS: Azithromycin 500 MG in Sodium Chloride 0.9% 250 ML 250 ML IVPB SCH (00:15)
[2018-11-25] MEDS: Cefepime 2 GM in Sodium Chloride 0.9% 100 ML IVPB SCH ×2 (01:19→12:05)
[2018-11-25] MEDS ORDERED: Haloperidol Lactate 5 MG/ML VIAL IM SCH (04:30)
[2018-11-25] MEDS: HumaLOG 300 UNITS/3 ML VIAL SC PRN ×3 (05:53→18:22)
[2018-11-25] MEDS: Furosemide 40 MG/4 ML VIAL SLOW IVP SCH ×2 (05:53→14:38)
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
[2018-11-25] MEDS ORDERED: Lorazepam 2 MG/ML VIAL SLOW IVP SCH (06:30)
[2018-11-25] MEDS: hydrALAZINE 25 MG TAB PO SCH ×3 (09:10→22:24)
[2018-11-25] MEDS: Carvedilol 6.25 MG TAB PO SCH ×2 (09:10→16:31)
[2018-11-25] MEDS: Famotidine 20 MG TAB PO SCH (09:13)
--- NOTE | 2018-11-25 09:35 | PDOC.PN ---
- Subjective Encounter Start Date: 11/25/18 Encounter Start Time: 09:32 Subjective: agitated,combative - Objective Resuscitation Status - Order Detail: 11/23/18 23:21 Resuscitation Status Routine Resuscitation Status: FULL: Full Resuscitation MAR Reviewed: Yes Vital Signs & Weight: Vital Signs (12 hours) Temp Pulse Resp BP BP Pulse Ox 11/25/18 09:10 103 H 11/25/18 07:32 98 F 103 H 20 155/94 H 96 11/25/18 07:05 100 20 11/25/18 03:44 98.1 F 113 H 20 145/77 H 97 11/25/18 02:31 83 18 96 11/25/18 00:00 97.7 F 98 20 139/74 94 L 11/24/18 22:47 88 18 96 11/24/18 21:58 100 133/87 Weight Weight 186 lb I&O: 11/24/18 11/25/18 11/26/18 06:59 06:59 06:59 Intake Total 350 700 Output Total 1050 Balance 350 -350 Result Diagrams: 11/24/18 04:00 11/24/18 04:00 Additional Labs: Accuchecks 11/25/18 11/24/18 11/24/18 05:47 20:31 17:42 POC Glucose 332 H 254 H 236 H 11/24/18 11:21 POC Glucose 265 H Phys Exam - Physical Examination Neck: no JVD some stridor basilar rales, some radistion of stridor acrosss chest Cardiovascular: RRR, no significant murmur Gastrointestinal: soft, positive bowel sounds Musculoskeletal: no edema Dx/Plan (1) Pneumonia Code(s): J18.9 - PNEUMONIA, UNSPECIFIED ORGANISM Status: Acute Qualifiers: Pneumonia type: due to unspecified organism Laterality: unspecified laterality Lung location: unspecified part of lung Qualified Code(s): J18.9 - Pneumonia, unspecified organism Comment: probably strep pneumonia (2) Acute on chronic diastolic (congestive) heart failure Code(s): I50.33 - ACUTE ON CHRONIC DIASTOLIC (CONGESTIVE) HEART FAILURE Status : Acute (3) CAD (coronary artery disease) Code(s): I25.10 - ATHSCL HEART DISEASE OF [place] CORONARY ARTERY W/O ANG PCTRS Status: Chronic Qualifiers: Coronary Disease-Associated Artery/Lesion type: [place] artery [place] vs. transplanted heart: [place] heart Associated angina: without angina Qualified Code(s): I25.10 - Atherosclerotic heart disease of [place] coronary artery without angina pectoris (4) Chronic kidney disease, stage 3 Code(s): N18.3 - CHRONIC KIDNEY DISEASE, STAGE 3 (MODERATE) Status: Chronic (5) Dementia Code(s): F03.90 - UNSPECIFIED DEMENTIA WITHOUT BEHAVIORAL DISTURBANCE Status: Chronic Qualifiers: Dementia type: Alzheimer's disease Alzheimer's disease onset: unspecified onset Dementia behavioral disturbance: with behavioral disturbance Qualified Code(s): G30.9 - Alzheimer's disease, unspecified; F02.81 - Dementia in other diseases classified elsewhere with behavioral disturbance (6) Diabetes type 2, controlled Code(s): E11.9 - TYPE 2 DIABETES MELLITUS WITHOUT COMPLICATIONS Status: Chronic Qualifiers: Diabetes mellitus local intermodal truck driver insulin use: without local intermodal truck driver use Diabetes mellitus complication status: with kidney complications Diabetes mellitus complication detail: with chronic kidney disease Chronic kidney disease stage : stage 3 (moderate) Qualified Code(s): E11.22 - Type 2 diabetes mellitus with diabetic chronic kidney disease; N18.3 - Chronic kidney disease, stage 3 ( moderate) (7) Hypertension Code(s): I10 - ESSENTIAL (PRIMARY) HYPERTENSION Status: Chronic Qualifiers: Hypertension type: essential hypertension - Plan cont iv diuresis -: DC iv medrol-suspect aggravating behavior problems -: cont po coreg, hydralazine -: difficult situation with his alzheimers disease * .
[2018-11-25] MEDS: ALPRAZolam 0.5 MG TAB PO SCH ×2 (14:06→16:44)
[2018-11-25] MEDS: ALPRAZolam 0.25 MG TAB PO PRN (22:25)
[2018-11-26] MEDS: Cefepime 2 GM in Sodium Chloride 0.9% 100 ML IVPB SCH ×2 (00:45→13:22)
[2018-11-26] MEDS: Azithromycin 500 MG in Sodium Chloride 0.9% 250 ML 250 ML IVPB SCH (00:45)
[2018-11-26] MEDS ORDERED: Haloperidol Lactate 5 MG/ML VIAL IM PRN (04:35)
[2018-11-26] MEDS: Furosemide 40 MG/4 ML VIAL SLOW IVP SCH ×2 (05:21→13:30)
[2018-11-26] MEDS: hydrALAZINE 25 MG TAB PO SCH ×3 (08:15→21:06)
[2018-11-26] MEDS: Famotidine 20 MG TAB PO SCH (08:15)
[2018-11-26] MEDS: Carvedilol 6.25 MG TAB PO SCH ×2 (08:15→17:32)
[2018-11-26] MEDS: ALPRAZolam 0.5 MG TAB PO SCH (08:15)
[2018-11-26] MEDS: HumaLOG 300 UNITS/3 ML VIAL SC PRN (08:28)
--- NOTE | 2018-11-26 10:43 | PDOC.PN ---
- Subjective Encounter Start Date: 11/26/18 Encounter Start Time: 10:42 Subjective: no distress ,confused - Objective Resuscitation Status - Order Detail: 11/23/18 23:21 Resuscitation Status Routine Resuscitation Status: FULL: Full Resuscitation MAR Reviewed: Yes Vital Signs & Weight: Vital Signs (12 hours) Temp Pulse Resp BP Pulse Ox 11/26/18 08:16 95 11/26/18 08:15 82 11/26/18 08:14 92 16 95 11/26/18 08:09 97.9 F 82 20 137/86 97 11/26/18 04:00 96.2 F L 88 20 171/81 H 94 L 11/26/18 02:51 88 18 11/25/18 22:50 80 20 Weight Weight 186 lb I&O: 11/25/18 11/26/18 11/27/18 06:59 06:59 06:59 Intake Total 1420 Output Total 1600 Balance -180 Result Diagrams: 11/24/18 04:00 11/24/18 04:00 Additional Labs: Accuchecks 11/26/18 11/25/18 11/25/18 05:57 20:55 17:06 POC Glucose 206 H 196 H 262 H 11/25/18 10:50 POC Glucose 185 H Phys Exam - Physical Examination Neck: no JVD stridor coarse BS, non-focal Cardiovascular: RRR, no significant murmur Gastrointestinal: soft, positive bowel sounds Musculoskeletal: no edema Dx/Plan (1) Pneumonia Code(s): J18.9 - PNEUMONIA, UNSPECIFIED ORGANISM Status: Acute Qualifiers: Pneumonia type: due to unspecified organism Laterality: unspecified laterality Lung location: unspecified part of lung Qualified Code(s): J18.9 - Pneumonia, unspecified organism Comment: probably strep pneumonia (2) Acute on chronic diastolic (congestive) heart failure Code(s): I50.33 - ACUTE ON CHRONIC DIASTOLIC (CONGESTIVE) HEART FAILURE Status : Acute (3) CAD (coronary artery disease) Code(s): I25.10 - ATHSCL HEART DISEASE OF [place] CORONARY ARTERY W/O ANG PCTRS Status: Chronic Qualifiers: Coronary Disease-Associated Artery/Lesion type: [place] artery [place] vs. transplanted heart: [place] heart Associated angina: without angina Qualified Code(s): I25.10 - Atherosclerotic heart disease of [place] coronary artery without angina pectoris (4) Chronic kidney disease, stage 3 Code(s): N18.3 - CHRONIC KIDNEY DISEASE, STAGE 3 (MODERATE) Status: Chronic (5) Dementia Code(s): F03.90 - UNSPECIFIED DEMENTIA WITHOUT BEHAVIORAL DISTURBANCE Status: Chronic Qualifiers: Dementia type: Alzheimer's disease Alzheimer's disease onset: unspecified onset Dementia behavioral disturbance: with behavioral disturbance Qualified Code(s): G30.9 - Alzheimer's disease, unspecified; F02.81 - Dementia in other diseases classified elsewhere with behavioral disturbance (6) Diabetes type 2, controlled Code(s): E11.9 - TYPE 2 DIABETES MELLITUS WITHOUT COMPLICATIONS Status: Chronic Qualifiers: Diabetes mellitus nurses director insulin use: without nurses director use Diabetes mellitus complication status: with kidney complications Diabetes mellitus complication detail: with chronic kidney disease Chronic kidney disease stage : stage 3 (moderate) Qualified Code(s): E11.22 - Type 2 diabetes mellitus with diabetic chronic kidney disease; N18.3 - Chronic kidney disease, stage 3 ( moderate) (7) Hypertension Code(s): I10 - ESSENTIAL (PRIMARY) HYPERTENSION Status: Chronic Qualifiers: Hypertension type: essential hypertension - Plan PCXR, then reevaluate * .
--- NOTE | 2018-11-26 13:04 | RAD ---
AP CHEST: INDICATIONS: Pneumonia/CHF followup. COMPARISON: 11/23/2018. FINDINGS: Cardiomegaly with mild vascular congestion again noted. Interstitial prominence is seen, consistent with interstitial edema, slightly improved from 11/23/2018. CP angles are not imaged, and I cannot a ssess for effusions. FINDINGS: Cardiomegaly with mild vascular congestion, slightly improved in appearance. POS: [facility]
[2018-11-26 17:28] LABS: Analyzer IN Cardio OR; Base Excess (BEa) 3.1 mEq/L (-2.0 to +3.0); CO2 Tension 38.5 mmHg (35.0-45.0); Calcium, Ionized 1.05 mmol/L (1.12-1.30); Carboxyhemoglobin (COHb) 0.4 gm% (0.0-3.0); Hemoglobin (Hb) 11.7 g/dL (14.0-18.0); Puncture Site RR; pH, Arterial 7.46 (7.35-7.45)
--- NOTE | 2018-11-26 17:59 | PDOC.EVN ---
Event Note - Event Note Event Note: cxr- improved aeration. ABG no resp failure
[2018-11-26] MEDS: Azithromycin 250 MG TAB PO SCH (21:06)
[2018-11-27] MEDS: Cefepime 2 GM in Sodium Chloride 0.9% 100 ML IVPB SCH ×2 (00:41→13:04)
[2018-11-27] MEDS: Furosemide 40 MG/4 ML VIAL SLOW IVP SCH ×2 (05:01→14:33)
--- NOTE | 2018-11-27 08:53 | PDOC.PN ---
- Subjective Encounter Start Date: 11/27/18 Encounter Start Time: 08:51 Subjective: confused , easily agitated - Objective Resuscitation Status - Order Detail: 11/23/18 23:21 Resuscitation Status Routine Resuscitation Status: FULL: Full Resuscitation MAR Reviewed: Yes Vital Signs & Weight: Vital Signs (12 hours) Temp Pulse Resp BP BP Pulse Ox 11/27/18 07:28 95 11/27/18 07:27 76 16 95 11/27/18 03:50 98.1 F 78 14 118/72 97 11/27/18 02:30 80 16 94 L 11/26/18 22:23 82 16 93 L 11/26/18 21:06 91 158/72 H Weight Weight 186 lb I&O: 11/26/18 11/27/18 11/28/18 06:59 06:59 06:59 Intake Total 1420 720 Output Total 1600 Balance -180 720 Result Diagrams: 11/24/18 04:00 11/24/18 04:00 Additional Labs: Accuchecks 11/27/18 11/26/18 11/26/18 05:39 20:20 16:50 POC Glucose 159 H 162 H 168 H 11/26/18 10:35 POC Glucose 170 H Phys Exam - Physical Examination Neck: no JVD Respiratory: clear to auscultation bilateral Cardiovascular: RRR, no significant murmur Gastrointestinal: soft, positive bowel sounds Musculoskeletal: no edema Dx/Plan (1) Pneumonia Code(s): J18.9 - PNEUMONIA, UNSPECIFIED ORGANISM Status: Acute Qualifiers: Pneumonia type: due to unspecified organism Laterality: right Lung location: lower lobe of lung Qualified Code(s): J18.1 - Lobar pneumonia, unspecified organism Comment: probably strep pneumonia (2) Acute on chronic diastolic (congestive) heart failure Code(s): I50.33 - ACUTE ON CHRONIC DIASTOLIC (CONGESTIVE) HEART FAILURE Status : Acute (3) CAD (coronary artery disease) Code(s): I25.10 - ATHSCL HEART DISEASE OF [place] CORONARY ARTERY W/O ANG PCTRS Status: Chronic Qualifiers: Coronary Disease-Associated Artery/Lesion type: [place] artery [place] vs. transplanted heart: [place] heart Associated angina: without angina Qualified Code(s): I25.10 - Atherosclerotic heart disease of [place] coronary artery without angina pectoris (4) Chronic kidney disease, stage 3 Code(s): N18.3 - CHRONIC KIDNEY DISEASE, STAGE 3 (MODERATE) Status: Chronic (5) Dementia Code(s): F03.90 - UNSPECIFIED DEMENTIA WITHOUT BEHAVIORAL DISTURBANCE Status: Chronic Qualifiers: Dementia type: Alzheimer's disease Alzheimer's disease onset: unspecified onset Dementia behavioral disturbance: with behavioral disturbance Qualified Code(s): G30.9 - Alzheimer's disease, unspecified; F02.81 - Dementia in other diseases classified elsewhere with behavioral disturbance (6) Diabetes type 2, controlled Code(s): E11.9 - TYPE 2 DIABETES MELLITUS WITHOUT COMPLICATIONS Status: Chronic Qualifiers: Diabetes mellitus terminal gauger supervisor insulin use: without jail use Diabetes mellitus complication status: with kidney complications Diabetes mellitus complication detail: with chronic kidney disease Chronic kidney disease stage : stage 3 (moderate) Qualified Code(s): E11.22 - Type 2 diabetes mellitus with diabetic chronic kidney disease; N18.3 - Chronic kidney disease, stage 3 ( moderate) (7) Hypertension Code(s): I10 - ESSENTIAL (PRIMARY) HYPERTENSION Status: Chronic Qualifiers: Hypertension type: essential hypertension - Plan cxr improved, cont iv lasix -: cont antibx -: hopefully can get back to [facility] soon * .
[2018-11-27 10:02] LABS: Anion Gap 16 mmol/L (10-20); BUN (Urea Nitrogen) 47 mg/dL (8.4-25.7); Calc. Creatinine Clearance 29 mL/min (70-130); Calcium 8.9 mg/dL (7.8-10.44); Carbon Dioxide 28 mmol/L (23-31); Chloride 101 mmol/L (98-107); Estimated GFR-MDRD 29; Glucose 218 mg/dL (83-110); Potassium 3.3 mmol/L (3.5-5.1); Sodium 142 mmol/L (136-145)
[2018-11-27] MEDS: Carvedilol 6.25 MG TAB PO SCH ×2 (12:50→17:35)
[2018-11-27] MEDS: ALPRAZolam 0.5 MG TAB PO SCH (12:51)
[2018-11-27] MEDS: Famotidine 20 MG TAB PO SCH (12:51)
[2018-11-27] MEDS: hydrALAZINE 25 MG TAB PO SCH ×5 (12:51→21:30)
[2018-11-27] MEDS: Azithromycin 250 MG TAB PO SCH (21:30)
[2018-11-28] MEDS: Cefepime 2 GM in Sodium Chloride 0.9% 100 ML IVPB SCH ×2 (00:41→12:54)
[2018-11-28] MEDS: Furosemide 40 MG/4 ML VIAL SLOW IVP SCH ×2 (06:25→14:28)
[2018-11-28] MEDS: hydrALAZINE 25 MG TAB PO SCH ×3 (07:56→21:42)
[2018-11-28] MEDS: Carvedilol 6.25 MG TAB PO SCH ×2 (07:56→17:32)
[2018-11-28] MEDS: Famotidine 20 MG TAB PO SCH (07:58)
[2018-11-28] MEDS: ALPRAZolam 0.5 MG TAB PO SCH (10:15)
--- NOTE | 2018-11-28 14:27 | EKG ---
Test Reason : SOB Blood Pressure : / mmHG Vent. Rate : 100 BPM Atrial Rate : 250 BPM P-R Int : 000 ms QRS Dur : 078 ms QT Int : 360 ms P-R-T Axes : 000 001 111 degrees QTc Int : 464 ms Atrial fibrillation Nonspecific ST and T wave abnormality Prolonged QT Abnormal ECG Confirmed by REZA RAMIRES, JESSICA Hogue ([id number]), market editor MADAI WARREN ([id number]) on 11/28/2018 2:27:34 PM Referred By: Confirmed By:JESSICA COBB MD
[2018-11-28] MEDS: 1/2 NS w/KCL 20 mEq 1,000 ML IV SCH (15:13)
--- NOTE | 2018-11-28 15:30 | PRG ---
DATE OF SERVICE: 11/28/2018 SUBJECTIVE: The patient was seen and examined at bedside. There is a sitter in the room. He is quite comatose and very difficult to arouse. OBJECTIVE: VITAL SIGNS: Blood pressure is 168/61, pulse is 84, temperature 97.7, maximal temperature is 99.0, respiratory rate is 16, O2 saturation is 96% on room air. GENERAL: Physical examination is very limited secondary to his difficult to arouse state. LUNGS: Sounds diminished at both bases. HEART: S1 and S2 normal. No S3. No S4. ABDOMEN: Soft and nontender. EXTREMITIES: No clubbing, cyanosis, or edema. LABORATORY DATA: Glycemia is ranging from 173 to 215. IMPRESSION: 1. Pneumonia. 2. Acute on chronic diastolic congestive heart failure. 3. Coronary artery disease. 4. Chronic kidney disease stage 3. 5. Dementia. 6. Diabetes mellitus type 2. 7. Comatose state. 8. Hypertension. PLAN: Going to stop all medications, which have some sedative effect on him, which is Seroquel, which he takes twice a day and Xanax. We will obtain BMP on him and he should wake up after stopping those two. For now, we will continue his current regimen and tomorrow we will make some additional adjustments to his medications and will make decision whether he can be discharged back to his place, where he came from. For now, we will continue his cefepime, we will continue azithromycin. We will continue his Lasix. We will supplement his potassium. Job ID: [id number]
[2018-11-28] MEDS: Azithromycin 250 MG TAB PO SCH (21:42)
[2018-11-29] MEDS: Cefepime 2 GM in Sodium Chloride 0.9% 100 ML IVPB SCH ×2 (01:21→13:20)
[2018-11-29] MEDS: 1/2 NS w/KCL 20 mEq 1,000 ML IV SCH ×2 (06:02→18:29)
[2018-11-29] MEDS: Carvedilol 6.25 MG TAB PO SCH ×2 (08:39→16:22)
[2018-11-29] MEDS: hydrALAZINE 25 MG TAB PO SCH ×2 (08:39→15:42)
[2018-11-29] MEDS: Famotidine 20 MG TAB PO SCH (08:39)
--- NOTE | 2018-11-29 17:06 | PRG ---
DATE OF SERVICE: 11/29/2018 SUBJECTIVE: The patient is seen and examined at the bedside. There are 2 family members present in the room during my visit. One of them is the patient's daughter, who informed me that he is a do not resuscitate patient and she wants to make sure that he is comfortable. Yesterday, I stopped his Seroquel and Xanax. He seems to be recovering from sedative effect of those 2 medications. He is more home awake today. He keeps his eyes closed, but he moves his all 4 extremities with significant change from what we saw yesterday. OBJECTIVE: VITAL SIGNS: Blood pressure is 163/95, temperature is 97.4, pulse is 82, respiratory rate is 16, pulse oximetry is 93% on 2 L by nasal cannula. He does not keep the nasal cannula in place. He takes it off. He does not follow my commands during my physical examination, so this examination is very limited. LUNGS: His lung sounds improved, although there are some crackles at both bases. HEART: S1 and S2 normal. No S3. No S4. ABDOMEN: Soft, nondistended. EXTREMITIES: No edema. LABORATORY DATA: Glycemia is ranging from 188 to 252. Microbiology, no new findings. IMPRESSION: 1. Pneumonia. 2. Acute on chronic diastolic congestive heart failure. 3. Coronary artery disease. 4. Comatose state, improved. 5. Chronic kidney disease stage 3. 6. Dementia. 7. Diabetes mellitus type 2. 8. Hypertension. PLAN: The patient seems to be doing significantly better in terms of sedation. For now, we will continue his current regimen. I discussed the possibility of using hospice services in his situation, and the daughter will discuss with the family and then she will let us know which way we are supposed to go. For now, I would like to continue his current regimen until we hear from them. The regimen includes azithromycin and cefepime. I would continue cefepime IV piggyback since he is not taking much fluids or food at this point, and this way we will secure that he gets his antibiotic into the system. We will keep him on slow IV hydration and continue DuoNebs if he let us do it, and we should have final decision from the daughter in terms of aggressiveness of the treatment, but from my discussion with her, it looks like she is leaning towards hospice services. Job ID: [id number]
[2018-11-30] MEDS: Azithromycin 250 MG TAB PO SCH ×2 (00:13→20:45)
[2018-11-30] MEDS: hydrALAZINE 25 MG TAB PO SCH ×4 (00:13→20:45)
[2018-11-30] MEDS: Cefepime 2 GM in Sodium Chloride 0.9% 100 ML IVPB SCH ×2 (00:59→14:10)
[2018-11-30] MEDS: 1/2 NS w/KCL 20 mEq 1,000 ML IV SCH ×2 (01:52→20:50)
--- NOTE | 2018-11-30 07:34 | PDOC.PN ---
- Subjective Encounter Start Date: 11/30/18 Encounter Start Time: 07:32 Subjective: Seen and examined -more awake - Objective Resuscitation Status - Order Detail: 11/23/18 23:21 Resuscitation Status Routine Resuscitation Status: FULL: Full Resuscitation Vital Signs & Weight: Vital Signs (12 hours) Temp Pulse Resp BP Pulse Ox 11/30/18 03:22 98.9 F 92 20 131/84 98 11/30/18 00:13 85 Weight Weight 167 lb 3.2 oz I&O: 11/29/18 11/30/18 12/01/18 06:59 06:59 06:59 Intake Total 1127 1335 Balance 1127 1335 Result Diagrams: 11/24/18 04:00 11/27/18 09:20 Additional Labs: Accuchecks 11/30/18 11/29/18 11/29/18 05:21 20:34 16:40 POC Glucose 190 H 216 H 233 H 11/29/18 10:55 POC Glucose 252 H Phys Exam - Physical Examination Constitutional: NAD HEENT: PERRLA, moist MMs, sclera anicteric Neck: no nodes, no JVD, supple Respiratory: no wheezing, no rales, no rhonchi Cardiovascular: RRR, no significant murmur, no rub Gastrointestinal: soft, non-tender, no distention, positive bowel sounds Musculoskeletal: no edema, pulses present Dx/Plan (1) Acute on chronic diastolic (congestive) heart failure Code(s): I50.33 - ACUTE ON CHRONIC DIASTOLIC (CONGESTIVE) HEART FAILURE Status : Acute (2) Pneumonia Code(s): J18.9 - PNEUMONIA, UNSPECIFIED ORGANISM Status: Acute Qualifiers: Pneumonia type: due to unspecified organism Laterality: right Lung location: lower lobe of lung Qualified Code(s): J18.1 - Lobar pneumonia, unspecified organism Comment: probably strep pneumonia (3) Encephalopathy acute Code(s): G93.40 - ENCEPHALOPATHY, UNSPECIFIED Status: Acute Comment: improving slowly. very impulsive, no social inhibition, memory a little worse than normal per (4) SOB (shortness of breath) Code(s): R06.02 - SHORTNESS OF BREATH Status: Acute (5) CAD (coronary artery disease) Code(s): I25.10 - ATHSCL HEART DISEASE OF [place] CORONARY ARTERY W/O ANG PCTRS Status: Chronic Qualifiers: Coronary Disease-Associated Artery/Lesion type: [place] artery [place] vs. transplanted heart: [place] heart Associated angina: without angina Qualified Code(s): I25.10 - Atherosclerotic heart disease of [place] coronary artery without angina pectoris (6) Chronic kidney disease, stage 3 Code(s): N18.3 - CHRONIC KIDNEY DISEASE, STAGE 3 (MODERATE) Status: Chronic - Plan plan discussed w/ family, continue antibiotics, social contact worker, respiratory therapy Awaiting the family decision on hospice per previous note -: May need to transfer out of Tele * .
[2018-11-30] MEDS: Amlodipine 5 MG TAB PO SCH (12:59)
[2018-11-30] MEDS: Carvedilol 6.25 MG TAB PO SCH ×2 (12:59→14:29)
[2018-11-30] MEDS: glipiZIDE 5 MG TAB PO SCH (13:00)
[2018-11-30] MEDS: Famotidine 20 MG TAB PO SCH (13:00)
[2018-11-30] MEDS: Labetalol HCl 100 MG/20 ML VIAL SLOW IVP PRN (18:07)
[2018-11-30] MEDS: hydrALAZINE 20 MG/ML VIAL SLOW IVP PRN (21:05)
[2018-12-01] MEDS: Cefepime 2 GM in Sodium Chloride 0.9% 100 ML IVPB SCH ×2 (03:21→16:35)
[2018-12-01 04:44] LABS: #Eosinphils 0.1 thou/uL (0.0-0.7); #Lymphocytes 1.6 thou/uL (1.20-3.40); #Monocytes 0.8 thou/uL (0.11-0.59); #Neutrophils 5.3 thou/uL (1.40-6.50); %Basophils 0.1 % (0.0-1.0); %Eosinophils 0.7 % (0.0-10.0); %Lymphocytes 20.9 % (21.0-51.0); %Monocytes 9.8 % (0.0-10.0); %Neutrophils 68.4 % (42.0-75.0); Hemoglobin 13.6 g/dL (14.0-18.0); Mean Corpuscular HGB CONC 31.8 g/dL (32.0-36.0); Mean Corpuscular Hemoglobin 27.2 pg (27.0-31.0); Mean Corpuscular Volume 85.4 fL (78.0-98.0); Mean Platelet Volume 8.7 fL (7.4-10.4); Platelet Count 155 thou/uL (130-400); RBC Distribution Width 14.2 % (11.5-14.5); White Blood Cell (WBC) Count 7.8 thou/uL (4.8-10.8)
[2018-12-01 05:12] LABS: Anion Gap 16 mmol/L (10-20); BUN (Urea Nitrogen) 34 mg/dL (8.4-25.7); Calc. Creatinine Clearance 32 mL/min (70-130); Calcium 9.3 mg/dL (7.8-10.44); Carbon Dioxide 27 mmol/L (23-31); Chloride 108 mmol/L (98-107); Estimated GFR-MDRD 37; Glucose 214 mg/dL (83-110); Potassium 3.7 mmol/L (3.5-5.1); Sodium 147 mmol/L (136-145)
[2018-12-01] MEDS: glipiZIDE 5 MG TAB PO SCH (08:07)
[2018-12-01] MEDS: Amlodipine 5 MG TAB PO SCH (08:07)
[2018-12-01] MEDS: Famotidine 20 MG TAB PO SCH (08:07)
[2018-12-01] MEDS: Carvedilol 6.25 MG TAB PO SCH ×2 (08:07→17:31)
[2018-12-01] MEDS: hydrALAZINE 25 MG TAB PO SCH ×3 (08:08→20:36)
[2018-12-01] MEDS: Labetalol HCl 100 MG/20 ML VIAL SLOW IVP PRN ×2 (09:13→16:51)
--- NOTE | 2018-12-01 10:04 | PDOC.PN ---
- Subjective Encounter Start Date: 12/01/18 Encounter Start Time: 10:03 Subjective: Seen and examined aggitated and confused - Objective Resuscitation Status - Order Detail: 11/30/18 17:23 Resuscitation Status Routine Resuscitation Status: DNAR: NO Resuscitation Discussed with: out of hospital DNR signed in Dec--confirmed with the Vital Signs & Weight: Vital Signs (12 hours) Temp Pulse Resp BP BP BP Pulse Ox 12/01/18 09:13 121 H 181/137 H 12/01/18 08:08 95 12/01/18 08:07 95 196/91 H 12/01/18 08:00 97.0 F L 105 H 18 181/137 H 91 L 12/01/18 00:04 97.9 F 95 14 103/64 92 L 11/30/18 23:50 92 L Weight Weight 167 lb 3.2 oz I&O: 11/30/18 12/01/18 12/02/18 06:59 06:59 06:59 Intake Total 1335 Balance 1335 Result Diagrams: 12/01/18 04:10 12/01/18 04:10 Additional Labs: Accuchecks 12/01/18 11/30/18 11/30/18 05:46 20:15 16:37 POC Glucose 192 H 186 H 190 H 11/30/18 11/30/18 12:12 11:05 POC Glucose 196 H 204 H Phys Exam - Physical Examination Constitutional: NAD HEENT: PERRLA, moist MMs, sclera anicteric Neck: no nodes, no JVD, supple, full ROM Respiratory: no wheezing, no rales, no rhonchi, clear to auscultation bilateral Cardiovascular: RRR, no significant murmur, no rub Gastrointestinal: soft, non-tender, no distention Musculoskeletal: pulses present Neurological: normal sensation, moves all 4 limbs Dx/Plan (1) Acute on chronic diastolic (congestive) heart failure Code(s): I50.33 - ACUTE ON CHRONIC DIASTOLIC (CONGESTIVE) HEART FAILURE Status : Acute (2) Pneumonia Code(s): J18.9 - PNEUMONIA, UNSPECIFIED ORGANISM Status: Acute Qualifiers: Pneumonia type: due to unspecified organism Laterality: right Lung location: lower lobe of lung Qualified Code(s): J18.1 - Lobar pneumonia, unspecified organism Comment: probably strep pneumonia (3) Encephalopathy acute Code(s): G93.40 - ENCEPHALOPATHY, UNSPECIFIED Status: Acute Comment: improving slowly. very impulsive, no social inhibition, memory a little worse than normal per (4) SOB (shortness of breath) Code(s): R06.02 - SHORTNESS OF BREATH Status: Acute (5) CAD (coronary artery disease) Code(s): I25.10 - ATHSCL HEART DISEASE OF [place] CORONARY ARTERY W/O ANG PCTRS Status: Chronic Qualifiers: Coronary Disease-Associated Artery/Lesion type: [place] artery [place] vs. transplanted heart: [place] heart Associated angina: without angina Qualified Code(s): I25.10 - Atherosclerotic heart disease of [place] coronary artery without angina pectoris (6) Chronic kidney disease, stage 3 Code(s): N18.3 - CHRONIC KIDNEY DISEASE, STAGE 3 (MODERATE) Status: Chronic - Plan plan discussed w/ family, PT/OT, manager social work Awaiting family decision on Hospice -: Dispo planning/case management rn on the case * .
[2018-12-01] MEDS: Dextrose 5 %-0.45 % NaCl 1,000 ML IV SCH ×2 (10:25→21:00)
[2018-12-01] MEDS: 1/2 NS w/KCL 20 mEq 1,000 ML IV SCH (10:26)
[2018-12-01] MEDS ORDERED: Ziprasidone 20 MG VIAL IM SCH (13:00)
[2018-12-01] MEDS: hydrALAZINE 20 MG/ML VIAL SLOW IVP PRN (18:13)
[2018-12-01] MEDS: Azithromycin 250 MG TAB PO SCH (20:36)
[2018-12-02] MEDS: Cefepime 2 GM in Sodium Chloride 0.9% 100 ML IVPB SCH ×2 (01:12→14:02)
[2018-12-02] MEDS: Dextrose 5 %-0.45 % NaCl 1,000 ML IV SCH ×4 (01:17→18:15)
[2018-12-02 06:11] LABS: Anion Gap 15 mmol/L (10-20); BUN (Urea Nitrogen) 28 mg/dL (8.4-25.7); Calc. Creatinine Clearance 33 mL/min (70-130); Calcium 9.1 mg/dL (7.8-10.44); Carbon Dioxide 24 mmol/L (23-31); Chloride 110 mmol/L (98-107); Estimated GFR-MDRD 38; Glucose 295 mg/dL (83-110); Potassium 3.6 mmol/L (3.5-5.1); Sodium 145 mmol/L (136-145)
[2018-12-02] MEDS: HumaLOG 300 UNITS/3 ML VIAL SC PRN (06:14)
[2018-12-02] MEDS ORDERED: Morphine 2 MG/ML SYRINGE SLOW IVP PRN (13:22)
--- NOTE | 2018-12-02 13:51 | PRG ---
DATE OF SERVICE: 12/02/2018 SUBJECTIVE: The patient's status is not changed. According to the nurse for the last couple of days, he is able to open his eyes for short period of time, but he closed them and keeps them closed almost all the time. He has some involuntary movement of his extremities. OBJECTIVE: VITAL SIGNS: Blood pressure is 191/103, temperature is 96.4, pulse is 95, respiratory rate is 18, pulse oximetry is 93% on room air. GENERAL: The examination is very limited secondary to patient's constant movement and inability to follow. LUNGS: Sound clear. HEART: S1 and S2 normal. No S3. No S4. ABDOMEN: Soft and nondistended. EXTREMITIES: No clubbing, cyanosis, or edema. NEUROLOGIC: As mentioned above, he does not follow. He does not communicate with us at all. From time to time, he is able to open his eyes, but he closes them quickly. LABORATORY DATA: Glycemia is ranging from 199 to 300. IMPRESSION: 1. Pneumonia. 2. Acute on chronic diastolic heart failure. 3. Encephalopathy. 4. Coronary artery disease. 5. Chronic kidney disease. 6. Baseline dementia. 7. Diabetes mellitus type 2. PLAN: Apparently, the was supposed to call us back with decision about hospice care. I met with the patient's daughter 3 days ago and she wanted to do comfort measures. We will continue his IV fluids since he is not really taking anything orally and we will try to contact the daughter again regarding his condition and further management and we will have Urology consultation to see whether this is somehow reversible condition. His advance directive says that if it is not reversible, the patient does not want any supportive care. We will try to get hold off the family. Job ID: [id number]
[2018-12-02] MEDS: Amlodipine 5 MG TAB PO SCH (13:56)
[2018-12-02] MEDS: Carvedilol 6.25 MG TAB PO SCH ×2 (13:56→18:35)
[2018-12-02] MEDS: Famotidine 20 MG TAB PO SCH (13:57)
[2018-12-02] MEDS: hydrALAZINE 25 MG TAB PO SCH ×3 (13:57→20:42)
[2018-12-02] MEDS: glipiZIDE 5 MG TAB PO SCH (13:57)
--- NOTE | 2018-12-02 15:10 | CT ---
CT BRAIN WITHOUT CONTRAST ENHANCEMENT: HISTORY: Altered mental status. COMPARISON: 03/03/2018 FINDINGS: There is generalized ventricular and sulcal prominence. Encephalomalacia change of the left posterio r frontal parietal region is a stable finding. Right-sided bur holes are noted. The extraaxial flui d collection and air seen over the right frontal convexity on the previous exam has resolved. There are no signs for intracerebral hemorrhage or extraaxial fluid collections. A focus of decreased atte nuation in the right occipital lobe region appears stable, also within the brainstem region and right basal ganglia area. IMPRESSION: No acute intracranial abnormalities. POS: [facility]
[2018-12-02] MEDS ORDERED: levETIRAcetam In NaCl (Iso-Os) 2,000 MG in Premix Bag 1 BAG IVPB SCH (17:15)
[2018-12-02] MEDS: levETIRAcetam In NaCl (Iso-Os) 1,000 MG in Premix Bag 1 BAG IVPB SCH ×2 (18:17→18:18)
--- NOTE | 2018-12-02 23:09 | CON ---
DATE OF CONSULTATION: 12/02/2018 IMPRESSION: 1. Nonverbal state, possibly secondary to subclinical seizures, new acute ischemic event versus metabolic abnormality superimposed on his prior left frontoparietal stroke. Plan EEG. 2. Cortisol and ammonia levels. 3. Consider need for MRI. HISTORY OF PRESENT ILLNESS: Mr. Alexander is an 88-year-old gentleman. He was up on tele. He has been monitored and is noted to be in atrial fibrillation. He apparently became nonverbal yesterday. He was transferred down to the oncology unit. He has remained nonverbal, but otherwise stable. I was called to give a neurologic opinion. The patient is unable to give me any type of history. There is no family in the room with him. PAST SOCIAL HISTORY: Otherwise as per chart. ALLERGIES: NONE. SOCIAL HISTORY: Not obtainable. FAMILY HISTORY: Not obtainable. REVIEW OF SYSTEMS: Not obtainable. PHYSICAL EXAMINATION: GENERAL: He is a reasonably healthy-appearing elderly gentleman lying in bed, in no distress. VITAL SIGNS: Stable. He has been afebrile. HEENT: Pupils are equal. Conjunctivae are clear. Mucous membranes are moist. NECK: Supple. No lymphadenopathy. ABDOMEN: Soft and nontender. EXTREMITIES: No cyanosis, clubbing, or edema. NEUROLOGIC: He awakens to verbal stimulation, but would not follow any commands. There is no facial asymmetry noted. His muscular tone is symmetric bilaterally. He has antigravity strength in both arms. He responds to touch symmetrically. His plantar responses were downgoing. Gait was not testable. No abnormal movements were seen. SUMMARY: This elderly man with a past history of a stroke in the left frontoparietal region. He has now developed speech arrest, which could be due to the above noted issues. We will follow up on his test results. Job ID: [id number]
[2018-12-03 05:06] LABS: Anion Gap 13 mmol/L (10-20); BUN (Urea Nitrogen) 24 mg/dL (8.4-25.7); Calc. Creatinine Clearance 34 mL/min (70-130); Calcium 8.5 mg/dL (7.8-10.44); Carbon Dioxide 23 mmol/L (23-31); Chloride 115 mmol/L (98-107); Estimated GFR-MDRD 39; Glucose 296 mg/dL (83-110); Potassium 3.4 mmol/L (3.5-5.1); Sodium 148 mmol/L (136-145)
[2018-12-03] MEDS: glipiZIDE 5 MG TAB PO SCH (09:24)
[2018-12-03] MEDS: Famotidine 20 MG TAB PO SCH (09:24)
[2018-12-03] MEDS: Carvedilol 6.25 MG TAB PO SCH ×2 (09:24→18:28)
[2018-12-03] MEDS: Amlodipine 5 MG TAB PO SCH (09:24)
[2018-12-03] MEDS: hydrALAZINE 25 MG TAB PO SCH ×3 (09:25→21:00)
--- NOTE | 2018-12-03 14:47 | PRG ---
DATE OF SERVICE: 12/03/2018 SUBJECTIVE: The patient is seen and examined at the bedside. His status is not changed. He keeps his eyes closed and he does not follow any commands. He does not communicate with us. He is nonverbal. He fights when he is forced to do anything and he fights when he is examined, so examination is very brief and limited. OBJECTIVE: LUNGS: Clear. HEART: S1, S2. Somewhat irregular. No S3, no S4. ABDOMEN: Soft and nondistended. EXTREMITIES: No clubbing, cyanosis, or edema. NEUROLOGIC: As mentioned above. He does not follow. He moves his all 4 extremities. He fights when he is examined. LABORATORY DATA: Showed glycemia ranging from 179 to 230, ammonia level 41, and cortisol level 17.7. IMPRESSION: 1. Nonverbal state as described by neurologist. The patient is placed on Keppra for possible subclinical seizures and the plan is to do EEG and MRI if it is possible, but I do not see this as possible. This was recommended by a neurologist. 2. Left frontoparietal region cerebrovascular accident per CT. 3. Pneumonia, resolved, status post complete course of antibiotic treatment. 4. Acute on chronic diastolic heart failure. 5. Encephalopathy. 6. Coronary artery disease. 7. Chronic kidney disease. 8. Baseline dementia. 9. Diabetes mellitus type 2. 10. Hyponatremia and hypochloremia. PLAN: Plan is to stop his current IV fluid since his sodium and chloride are going up. We will start him on D5 water at 70 mL/hour. We will continue Keppra IV. We will try to discuss the case with Dr. Ruiz for Neurology evaluation. I do not think we will be able to do his testing. His ammonia and cortisol came back within normal limits. The patient is not able to communicate with us and I met with the daughter from [place] and she does not want to do any feeding tube use of any kind. Apparently, Palliative Care was able to contact the family today and his is very sick, but the daughters supposed to make decision about possible hospice care. In the meantime, we will try to talk to the neurologist. Job ID: [id number]
[2018-12-03] MEDS: Dextrose 5% in Water 1,000 ML IV SCH (15:13)
[2018-12-04] MEDS: Dextrose 5% in Water 1,000 ML IV SCH (05:24)
[2018-12-04] MEDS: HumaLOG 300 UNITS/3 ML VIAL SC PRN (05:28)
[2018-12-04 06:52] LABS: Anion Gap 13 mmol/L (10-20); BUN (Urea Nitrogen) 19 mg/dL (8.4-25.7); Calc. Creatinine Clearance 34 mL/min (70-130); Calcium 8.5 mg/dL (7.8-10.44); Carbon Dioxide 21 mmol/L (23-31); Chloride 112 mmol/L (98-107); Estimated GFR-MDRD 40; Glucose 317 mg/dL (83-110); Sodium 143 mmol/L (136-145)
[2018-12-04] MEDS: Carvedilol 6.25 MG TAB PO SCH ×2 (08:23→17:39)
[2018-12-04] MEDS: glipiZIDE 5 MG TAB PO SCH (08:24)
[2018-12-04] MEDS: Famotidine 20 MG TAB PO SCH (08:24)
[2018-12-04] MEDS: Amlodipine 5 MG TAB PO SCH (08:24)
[2018-12-04] MEDS: hydrALAZINE 25 MG TAB PO SCH ×3 (08:25→19:51)
[2018-12-04 11:23] VITALS: BMI 24.7
[2018-12-04] MEDS ORDERED: Potassium Chloride 10 MEQ in Premix Bag 1 BAG IVPB SCH (11:30)
--- NOTE | 2018-12-04 11:43 | PRG ---
DATE OF SERVICE: 12/04/2018 SUBJECTIVE: The patient is seen and examined at the bedside. He is not much change from yesterday. He keeps his eyes open. He has some upper extremity movement from [id number]. He does not communicate with me. He does not follow my commands. He does not keep any eye contact with me. OBJECTIVE: VITAL SIGNS: Blood pressure is 159/82, pulse is 97, O2 saturation was noted at 87% on room air, but he is not in any distress. He does not keep his oxygen on, temperature 97.9, respirations 22. The examination is very limited because he is pushing away my stethoscope and my hands. GENERAL: He does not follow my commands. It looks like he is able to move his all four extremities. LUNGS: Breath sounds diminished at both bases, mild. No wheezing. No rales. HEART: S1, S2 normal. No S3. No S4. ABDOMEN: Soft, nondistended. EXTREMITIES: No clubbing, cyanosis, or edema. NEUROLOGIC: As I mentioned above, he does not follow my commands. He tries to push me away when I examine him. He keeps his eye open, but there is no any contact verbally. LABORATORY DATA: Sodium of 143, potassium 3.0, chloride 112, CO2 21, creatinine 1.64, glycemia is ranging from 144 to 318, calcium 8.5, magnesium 1.8. IMPRESSION: 1. Nonverbal state as described by neurologist. The patient was placed on Keppra for possible subclinical seizures. The plan is to do EEG and MRI if it is possible, at this point, is not possible, the patient is moving a lot and he does not have any understanding what is going on. I communicated with his this morning. She is sick, but she is going to try to talk to the daughters regarding his current situation. The patient is not eating for the last several days. Apparently, we are not supposed to use any tube feeding on him, so he is just getting IV fluids. The family will have to make decision either he is going to be fed at this point or he will be taking the hospice services. 2. Left frontoparietal region cerebrovascular accident per CT. 3. Pneumonia, resolved, status post complete course of antibiotic treatment. 4. Acute on chronic diastolic heart failure. 5. Encephalopathy, somewhat better. 6. Coronary artery disease. 7. Chronic kidney disease. His creatinine is improved. 8. Hypokalemia. We will replace him with Potassium Chloride IV 10 mEq x2 doses today and I will check his magnesium level. 9. Baseline dementia. 10. Diabetes mellitus type 2. PLAN: We switch his IV fluids to D5 water and that is why he is getting high glucose levels on Accu-Cheks. We are going to cut back on his fluids to 50 mL/h since there is some evidence that his pulse oximetry is running on the lower side, although he is not in any significant respiratory distress. His ammonia and cortisol levels were within normal limits. We will continue his IV Keppra for now and we will do EEG and MRI of the brain if his condition allows us to do that and we will try to communicate with the family again tomorrow. Job ID: [id number]
[2018-12-05 06:32] VITALS: TEMP 97.8
--- NOTE | 2018-12-05 08:36 | EEG ---
Referring Physician: Lynne PARISH EEG # [id number] TEST TYPE: ROUTINE PORTABLE INPATIENT REPORT: AN EEG USING THE INTERNATIONAL TEN-TWENTY SYSTEM OF ELECTRODE PLACEMENT WAS PERFORMED. The background activity shows an asymmetry with higher amplitude slowing seen over the right hemisphere as compared to the left. There is periodic phase reversal and some sharp activity seen predominately out of the right parasagittal chain. Photic stimulation was unremarkable. No sleep was seen. IMPRESSION: THIS IS AN ABNORMAL STUDY FOR THE FINDINGS OF DIFFUSE SLOWING WELL SOME SUSPICIOUSLY EPILEPTIFORM ACTIVITY IN THE RIGHT PARASAGITTAL REGION. Staff Accountant: HAYES Supervisor Final: EEG.AC JAIN
--- NOTE | 2018-12-05 09:22 | PRG ---
DATE OF SERVICE: 12/05/2018 SUBJECTIVE: The patient was seen and examined at the bedside. He remains nonverbal. Appears comfortable. No overnight events noted. OBJECTIVE: VITAL SIGNS: Temperature 97.8, pulse rate 103, respirations 22, blood pressure 157/101, O2 saturation 89% on room air. GENERAL: An 88-year-old male, in no apparent distress. LUNGS: Showed few rales at bases with scattered rhonchi. HEART: S1 and S2 present. Irregularly irregular. ABDOMEN: Soft. Bowel sounds present. EXTREMITIES: No edema. NEUROLOGIC: Unable to assess due to current cognitive status. LABORATORY FINDINGS: CBC on showed WBC 7.8, hemoglobin 13.6, hematocrit 42.7, platelet 155. Chemistries on 12/04 showed sodium 143, potassium 3, creatinine of 1.64. DIAGNOSTIC STUDIES: CT scan of the brain on the by my review was negative for acute abnormality. Chest x-ray on the 11/26/2018 showed cardiomegaly. Chest x-ray on admission showed congestive heart failure. IMPRESSION: 1. Acute on chronic hypoxic respiratory failure secondary to healthcare associated pneumonia as well as diastolic heart failure exacerbation. 2. Acute on chronic diastolic heart failure exacerbation, appears to be compensated. ACC stage C. 3. Toxic metabolic encephalopathy (Alzheimer's dementia with behavioral symptoms ). 4. Diabetes mellitus type 2. 5. Acute kidney injury on chronic kidney disease, stage 3. 6. Hypertension. 7. Peripheral vascular disease. 8. Chronic respiratory failure, on oxygen. 9. History of cerebrovascular accident. 10. Hypokalemia. 11. Chronic anemia. PLAN: The patient remains nonverbal and does not have any IV access at this time. He is refusing medications at this time. Family will be arriving later today to assist with decision making. MRI has been ordered; however, this will not be possible due to current cognitive status. The patient has completed antibiotics for pneumonia. We will try to recheck labs. CODE STATUS: Do not resuscitate per [facility]. DISPOSITION: Probably back to [facility] based on the family decision. Job ID: [id number] [facility]
[2018-12-05 11:21] LABS: #Eosinphils 0.1 thou/uL (0.0-0.7); #Monocytes 0.8 thou/uL (0.11-0.59); #Neutrophils 9.5 thou/uL (1.40-6.50); %Basophils 0.2 % (0.0-1.0); %Eosinophils 0.8 % (0.0-10.0); %Lymphocytes 16.1 % (21.0-51.0); %Monocytes 6.7 % (0.0-10.0); %Neutrophils 76.1 % (42.0-75.0); Hemoglobin 13.1 g/dL (14.0-18.0); Mean Corpuscular HGB CONC 30.7 g/dL (32.0-36.0); Mean Corpuscular Hemoglobin 26.3 pg (27.0-31.0); Mean Corpuscular Volume 85.6 fL (78.0-98.0); Mean Platelet Volume 10.6 fL (7.4-10.4); Platelet Count 142 thou/uL (130-400); RBC Distribution Width 14.5 % (11.5-14.5); Red Blood Cell (RBC) Count 4.97 mill/uL (4.70-6.10); White Blood Cell (WBC) Count 12.5 thou/uL (4.8-10.8)
[2018-12-05 11:45] LABS: ALT (SGPT) 17 U/L (8-55); AST (SGOT) 19 U/L (5-34); Albumin 3.2 g/dL (3.4-4.8); Alkaline Phosphatase 95 U/L (40-150); Anion Gap 17 mmol/L (10-20); BUN (Urea Nitrogen) 22 mg/dL (8.4-25.7); Bilirubin, Total 1.3 mg/dL (0.2-1.2); Calc. Creatinine Clearance 33 mL/min (70-130); Calcium 9.2 mg/dL (7.8-10.44); Carbon Dioxide 21 mmol/L (23-31); Chloride 114 mmol/L (98-107); Estimated GFR-MDRD 39; Globulin 3.9 g/dL (2.4-3.5); Glucose 234 mg/dL (83-110); Magnesium 1.9 mg/dL (1.6-2.6); Potassium 3.8 mmol/L (3.5-5.1); Protein, Total 7.1 g/dL (5.8-8.1); Sodium 148 mmol/L (136-145)
[2018-12-05 12:16] LABS: Folate (Folic Acid) 10.2 ng/mL (7.0-31.4)
[2018-12-05] MEDS: Carvedilol 6.25 MG TAB PO SCH ×2 (13:36→18:09)
[2018-12-05] MEDS: Amlodipine 5 MG TAB PO SCH (13:36)
[2018-12-05] MEDS: hydrALAZINE 25 MG TAB PO SCH ×2 (13:37→17:02)
[2018-12-05] MEDS: glipiZIDE 5 MG TAB PO SCH (13:37)
[2018-12-05] MEDS: Famotidine 20 MG TAB PO SCH (13:37)
[2018-12-05 13:38] VITALS: BP 159/82
--- NOTE | 2018-12-06 10:02 | DIS ---
DATE OF ADMISSION: 11/23/2018 DATE OF DISCHARGE: 12/05/2018 DISCHARGE DISPOSITION: Back to halfway with hospice. ALLERGIES: NO KNOWN DRUG ALLERGIES. CODE STATUS: Do not resuscitate. DISCHARGE MEDICATIONS: Same as admission medication, no changes were made. INPATIENT CONSULT: Neurology, Dr. Ruiz. BRIEF HOSPITAL COURSE: The patient is an 88-year-old male with Alzheimer's dementia, diabetes mellitus type 2, and CVA in the past, presented to the hospital with fever and shortness of breath. His workup was consistent with acute on chronic hypoxic respiratory failure secondary to healthcare-associated pneumonia as well as diastolic heart failure exacerbation. Overall, his oxygenation as well as vital signs improved. However, he had persistent encephalopathy. He was started on Keppra and was evaluated by Neurology, Dr. Ruiz. MRI was ordered, however, the patient will not cooperate for MRI. EEG has been ordered and pending at this time. Anticonvulsant were discontinued by Dr. Ruiz. The family decided on hospice at nursing facility. FINAL DIAGNOSES: 1. Acute on chronic hypoxic respiratory failure secondary to healthcare-associated pneumonia as well as acute on chronic diastolic heart failure exacerbation. 2. Toxic metabolic encephalopathy secondary to acute on chronic hypoxic respiratory failure as well as underlying Alzheimer's dementia. 3. Diabetes mellitus, type 2. 4. Acute kidney injury on chronic kidney disease, stage 3. 5. Hypertension. 6. Peripheral vascular disease. 7. Chronic respiratory failure, on home oxygen. 8. History of cerebrovascular accident. 9. Hypokalemia. 10. Chronic anemia. TIME SPENT: Total time coordinating the discharge of this patient was 33 minutes. Job ID: [id number]
== END 2018-12-05 18:55 | disposition hospice, home (50) | DRG 291 ==
LOC: ERS 18:45 → ERHOLD 20:45 → 2NO 11-24 19:26 → ONC 11-30 11:51
PROVIDERS: ADMIT Internal Medicine; ATTEND Internal Medicine
DX: I13.0 Hypertensive heart and chronic kidney disease with heart failure and stage 1 through stage 4 chronic kidney disease, or unspecified chronic kidney disease (principal); I50.33 Acute on chronic diastolic (congestive) heart failure; J96.21 Acute and chronic respiratory failure with hypoxia; J18.1 Lobar pneumonia, unspecified organism; G92 Toxic encephalopathy; N17.9 Acute kidney failure, unspecified; G30.9 Alzheimer's disease, unspecified; F02.80 Dementia in other diseases classified elsewhere, unspecified severity, without behavioral disturbance, psychotic disturbance, mood disturbance, and anxiety; E11.22 Type 2 diabetes mellitus with diabetic chronic kidney disease; N18.3 Chronic kidney disease, stage 3 (moderate); I25.10 Atherosclerotic heart disease of native coronary artery without angina pectoris; E11.51 Type 2 diabetes mellitus with diabetic peripheral angiopathy without gangrene; M19.90 Unspecified osteoarthritis, unspecified site; Z66 Do not resuscitate; Z51.5 Encounter for palliative care; E87.6 Hypokalemia; Z86.73 Personal history of transient ischemic attack (TIA), and cerebral infarction without residual deficits
CPT/HCPCS: 36415; 36416; 70450; 71045; 80048; 80053; 82140; 82533; 82607; 82746; 82805; 83605; 83735; 83880; 84484; 85007; 85025; 85027; 87040; 87086; 87804; 93005; 93798; 94640; 94760; 95816; 95819; 96361; 96365; 96374; 96375; J0360; J0456; J0692; J0696; J1630; J1815; J1940; J1953; J2060; J2270; J2920; J3370; J3480; J3486; J7050; J7620